=== PATIENT | female | born 1945 | race Asian ===

== ENCOUNTER 2017-03-31 15:39 | Inpatient (IN) | payer MEDICARE, OTHER ==
[~2017-03-31] VITALS: Ht 160 cm; Wt 68.0 kg
[~2017-03-31 15:39] MED LIST: ASPI81TA3 PO; LOSARTAN PO; LOVAZA PO; METF500T4 PO; METO-53; OYSTER SHELL CAL PO; SIMV40TA2
[2017-03-31] MEDS ORDERED: NITROGLYCERIN 2% 1 GM OINT PKT TD STA (15:54)
[2017-03-31] MEDS ORDERED: FUROSEMIDE 40 MG INJ IV STA (15:54)
[2017-03-31] MEDS ORDERED: ASPIRIN 81 MG TAB PO STA (15:54)
[2017-03-31] MEDS ORDERED: NITROGLYCERIN (SL) 0.4 MG TAB SL PRN ×2 (16:00→18:30)
--- NOTE | 2017-03-31 16:09 | RADRPT ---
PROCEDURE: XR Chest. CLINICAL INDICATION: Chest pain TECHNIQUE: Single portable view of the chest was obtained COMPARISON: None FINDINGS: There is mild cardiomegaly. There is mild pulmonary vascular congestion. There are bilateral perihilar and lower lobe infiltrat es. The thoracic aorta is calcified.. There is no pneumothorax. The bones and soft tissues are unremarkable. RPTAT: AA IMPRESSION: Mild cardiomegaly with pulmonary vascular congestion. .Benton Carrillo MD, MD Date Time Electronically viewed and signed by .Benton Carrillo MD, MD on 03/31/2017 16:09 .S/
[2017-03-31 16:56] LABS: ADD SCAN DIFF NO
[2017-03-31 16:58] LABS: BASOPHIL # 0.1 10^3/ul (0.0-0.1); BASOPHILS % 0.5 % (0.0-2.0); EOSINOPHILS # 0.2 10^3/ul (0.0-0.5); EOSINOPHILS % 1.9 % (0.0-7.0); HEMATOCRIT 41.8 % (37.0-47.0); HEMOGLOBIN 13.3 g/dl (12.0-16.0); LYMPHOCYTES # 3.8 10^3/ul (0.8-2.9); LYMPHOCYTES % 37.4 % (15.0-51.0); MEAN CORPUSCULAR HEMOGLOBIN 28.5 pg (29.0-33.0); MEAN CORPUSCULAR HGB CONC 31.8 g/dl (32.0-37.0); MEAN CORPUSCULAR VOLUME 89.5 fl (82.0-101.0); MEAN PLATELET VOLUME 10.7 fl (7.4-10.4); MONOCYTE # 0.8 10^3/ul (0.3-0.9); MONOCYTES % 7.7 % (0.0-11.0); NEUTROPHIL # 5.3 10^3/ul (1.6-7.5); NEUTROPHILS % 52.3 % (39.0-77.0); PLATELET COUNT 225 10^3/UL (140-415); RED BLOOD COUNT 4.67 10^6/ul (4.20-5.40); RED CELL DISTRIBUTION WIDTH 13.2 % (11.5-14.5); WHITE BLOOD COUNT 10.1 10^3/ul (4.8-10.8)
[2017-03-31] MEDS ORDERED: COLC0.6T6 PO (16:58)
[2017-03-31] MEDS ORDERED: CALC-277 PO (16:58)
[2017-03-31] MEDS ORDERED: MECL-77 PO (16:58)
[2017-03-31] MEDS ORDERED: OMEG1CAP2 PO (16:59)
[2017-03-31] MEDS ORDERED: CYCL1DRO BOTH EYES (16:59)
[2017-03-31] MEDS ORDERED: METO-429 PO (17:01)
[2017-03-31] MEDS ORDERED: ASPI-664 PO (17:01)
[2017-03-31] MEDS ORDERED: SITA100T8 PO (17:02)
[2017-03-31] MEDS ORDERED: CRES10 PO (17:02)
[2017-03-31] MEDS ORDERED: LEVO25TA50 PO (17:03)
[2017-03-31] MEDS ORDERED: LOSA100T7 PO (17:03)
[2017-03-31] MEDS ORDERED: GABA100C14 PO (17:04)
[2017-03-31] MEDS ORDERED: METF850T PO (17:05)
[2017-03-31] MEDS ORDERED: FLUT16SP17 NASAL (17:06)
[2017-03-31] MEDS ORDERED: AMLO5TAB4 PO (17:06)
[2017-03-31] MEDS ORDERED: ACET-141 PO (17:07)
[2017-03-31 17:15] LABS: INR 0.91; PROTIME 12.3 Sec (12.2-14.2)
[2017-03-31 17:16] LABS: PARTIAL THROMBOPLASTIN TIME 31.4 Sec (25.0-35.0)
[2017-03-31 17:18] LABS: AADO2 Arterial 311.3 mmHg (7.0-24.0); Allen Test ACCEPTAB; Arterial Base Excess -2.7 mmol/L (-3.0-3); Arterial COHb 0.3 % (0.0-3.0); Arterial HCO3 21.2 mmol/L (22.0-26.0); Arterial MetHb 0.2 % (0.0-1.5); Blood Gas IEPAP 15/5; Blood Gas PS 10; MODE MASK - BIPAP
[2017-03-31 17:20] LABS: CALCIUM 9.3 mg/dl (8.4-10.2); CREATININE 0.85 mg/dl (0.44-1.00); POTASSIUM 3.9 mmol/L (3.5-5.1)
[2017-03-31] MEDS ORDERED: ONDANSETRON 4 MG INJ IV PRN ×2 (17:30→18:30)
[2017-03-31] MEDS ORDERED: ACETAMINOPHEN 325 MG TAB PO PRN ×2 (17:30→18:30)
[2017-03-31 17:34] LABS: TROPONIN-I 0.209 ng/ml (0.00-0.12)
--- NOTE | 2017-03-31 18:04 | ERA ---
ER Documentation Chief Complaint Date/Time DATE: 03/31/17 TIME: 18:00 Chief Complaint Shortness of breath HPI Patient is a 71-year-old female with hypertension and diabetes who presents saying "I cannot breathe". She said this started 1 hour ago and was acute in onset. She denies pain. She said that she has no chest pain. This shortness of breath has been constant. She denies recent bleeding. She has had a mild cough. She has had no fevers. Upon review of old medical records this is the patient's third visit to the ER since 2009. ROS All systems reviewed and are negative except as per history of present illness. Medications Home Meds Reported Medications Acetaminophen* (Acetaminophen*) 500 MG Extra Strength Tablet, 1000 MG PO Q6H Y for PAIN AND OR ELEVATED TEMP, TAB 03/31/17 Fluticasone Propionate* (Fluticasone Propionate* Nasal) 50 Mcg/Hannibal - 16 Gm Hannibal.susp, 1 SPRAY NASAL DAILY, #1 BOTTLE TO EACH NOSTRIL 03/31/17 Amlodipine Besylate* (Norvasc*) 5 Mg Tablet, 5 MG PO DAILY, TAB 03/31/17 Metformin Hcl* (Metformin Hcl*) 850 Mg Tablet, 850 MG PO WITH BREAKFAST DINNE, # 30 TAB 03/31/17 Gabapentin* (Gabapentin*) 100 Mg Capsule, 100 MG PO BID, #90 CAP 03/31/17 Losartan Potassium* (Losartan Potassium*) 100 Mg Tablet, 100 MG PO DAILY, TAB 03/31/17 Levothyroxine Sodium* (Levoxyl*) 25 Mcg Tablet, 25 MCG PO BEFORE BREAKFAST, #30 TAB 03/31/17 Sitagliptin* (Januvia*) 100 Mg Tablet, 100 MG PO DAILY, #30 TAB 03/31/17 Rosuvastatin Calcium* (Crestor*) 10 Mg Tablet, 10 MG PO QHS, #30 TAB 03/31/17 Aspirin (Low Dose Aspirin) 81 Mg Tablet.dr, 81 MG PO DAILY, #30 TAB 03/31/17 Metoprolol Tartrate* (Lopressor*) 50 Mg Tab, 50 MG PO DAILY, #60 TAB 03/31/17 [place]-3 Acid Ethyl Esters (Lovaza) 1 Gm Capsule, 2 GM PO BID, CAP 03/31/17 Cyclosporine (RESTASIS) 1 Each Droperette, 1 DROP BOTH EYES Q12, #1 BOX 6/11/17 Meclizine Hcl* (Meclizine Hcl*) 25 Mg Tablet, 25 MG PO Q8H Y for DIZZINESS, TAB 03/31/17 Colchicine* (Colcrys*) 0.6 Mg Tablet, 0.6 MG PO DAILY, TAB 03/31/17 Calcium Carbonate/Vitamin D3 (OYSTER SHELL 500 MG + VIT D TB) 1 Each Tablet, 1 EACH PO BID, TAB 03/31/17 Discontinued Reported Medications [Lovaza] No Conflict Check, PO BID 09/12/13 [Oyster Shell Keenan] No Conflict Check, 500 MG PO BID 09/12/13 Metformin Hcl* (Metformin Hcl*) 500 Mg Tablet, 500 MG PO BID 09/12/13 [Losartan] No Conflict Check, 100 MG PO DAILY 09/12/13 Aspirin (Aspirin) 81 Mg Chew, 81 MG PO DAILY 09/12/13 Metoprolol (Lopressor) 50 Mg Tablet 06/16/10 Simvastatin* (Zocor*) 40 Mg Tablet 06/16/10 Allergies Allergies: Coded Allergies: codeine (Verified Allergy, Mild, 03/31/17) guaifenesin (Verified Allergy, Mild, 03/31/17) PMhx/Soc History of Surgery: No Anesthesia Reaction: No Hx Neurological Disorder: No Hx Respiratory Disorders: No Hx Cardiac Disorders: Yes (HTN, HIGH CHOLESTEROL) Hx Psychiatric Problems: No Hx Miscellaneous Medical Probl: Yes (DM) Hx Alcohol Use: No Hx Substance Use: No Hx Tobacco Use: No FmHx Family History: No coronary disease Physical Exam Vitals Vital Signs Date Time Temp Pulse Resp B/P Pulse Ox O2 Delivery O2 Flow Rate FiO2 03/31/17 17:21 84 24 173/95 100 BIPAP 03/31/17 16:09 84 100 100 03/31/17 15:54 Nasal Cannula 2 03/31/17 15:54 Nasal Cannula 2.0 03/31/17 15:54 97.7 98 34 208/110 100 03/31/17 15:54 98 34 208/110 100 Nasal Cannula 2.0 Physical Exam Const: Severe distress secondary to shortness of breath Head: Atraumatic Eyes: Normal Conjunctiva ENT: Normal External Ears, Nose and Mouth. Neck: Full range of motion..~ No meningismus. Resp: Decreased breath sounds bilaterally, tachypnea and accessory muscle use Cardio: Regular rate and rhythm, no murmurs Abd: Soft, non tender, non distended. Normal bowel sounds Skin: Pale skin Back: No midline or flank tenderness Ext: No cyanosis, or edema Neur: Awake and alert Psych: Normal Mood and Affect Result Diagram: 03/31/17 1615 03/31/17 1615 Results 24 hrs Laboratory Tests Test 03/31/17 15:59 03/31/17 16:15 Blood Gas Specimen Source Blood arterial Arterial Blood Date Drawn 03/31/2017 5:09:45 PM Arterial Blood pH (Temp corrected) 7.407 Arterial Blood pCO2 (Temp correct) 34.5mmhg Arterial Blood pO2 (Temp corrected) 367.2mmHG Arterial Blood HCO3 21.2mmol/L Arterial Blood Base Excess -2.7mmol/L Arterial Blood Oxygen Saturation 99.5mmHG Parmjit Test ACCEPTAB Arterial Blood Gas Puncture Site Right Radial Arterial Blood Carboxyhemoglobin 0.3% Arterial Blood Methemoglobin 0.2% Blood Gas A-a O2 Differential 311.3mmHg Oxyhemoglobin Percent 99.0% Total Hemoglobin 14.0g/dl Blood Gas Temperature 37.0C Blood Gas Modality MASK - BIPAP FiO2 100.0% Blood Gas Pressure Support 10 Blood Gas IPAP/EPAP Ratio 15/5 Blood Gas Notified Whom ab Blood Gas Notified Time 03/31/2017 5:17:53 PM White Blood Count 10.110^3/ul Red Blood Count 4.6710^6/ul Hemoglobin 13.3g/dl Hematocrit 41.8% Mean Corpuscular Volume 89.5fl Mean Corpuscular Hemoglobin 28.5pg Mean Corpuscular Hemoglobin Concent 31.8g/dl Red Cell Distribution Width 13.2% Platelet Count 22116^3/UL Mean Platelet Volume 10.7fl Neutrophils % 52.3% Lymphocytes % 37.4% Monocytes % 7.7% Eosinophils % 1.9% Basophils % 0.5% Nucleated Red Blood Cells % 0.0/100WBC Neutrophils # 5.310^3/ul Lymphocytes # 3.810^3/ul Monocytes # 0.810^3/ul Eosinophils # 0.210^3/ul Basophils # 0.110^3/ul Nucleated Red Blood Cells # 0.010^3/ul Prothrombin Time 12.3Sec Prothrombin Time Ratio 1.0 INR International Normalized Ratio 0.91 Activated Partial Thromboplast Time 31.4Sec Sodium Level 144mmol/L Potassium Level 3.9mmol/L Chloride Level 104mmol/L Carbon Dioxide Level 27mmol/L Anion Gap 17 Blood Urea Nitrogen 13mg/dl Creatinine 0.85mg/dl Glucose Level 210mg/dl Calcium Level 9.3mg/dl Troponin I 0.209ng/ml Current Medications Medications (Trade) Dose Ordered Sig/Padma Route PRN Reason Start Time Stop Time Status Last Admin Dose Admin Aspirin (Aspirin) 162 mg ONCE STAT PO 03/31/17 15:54 03/31/17 15:55 DC 03/31/17 16:08 Nitroglycerin (Nitroglycerin 2% Oint) 1 inch ONCE STAT TD 03/31/17 15:54 03/31/17 15:55 DC 03/31/17 16:08 Nitroglycerin (Nitroglycerin (Sl Tab) 0.4 Mg) 1 tab Q5M UP TO 3 DOSES PRN SL CHEST PAIN 03/31/17 16:00 03/31/17 16:07 Furosemide (Lasix) 40 mg ONCE STAT IV 03/31/17 15:54 03/31/17 15:55 DC 03/31/17 16:08 Ondansetron HCl (Zofran Inj) 4 mg ER BRIDGE PRN IV NAUSEA AND/OR VOMITING 03/31/17 17:30 04/01/17 17:29 Acetaminophen (Tylenol Tab) 650 mg ER BRIDGE PRN PO MILD PAIN/FEVER 03/31/17 17:30 04/01/17 17:29 Procedures/MDM EKG #1 read by me: Rate/Rhythm: Left bundle branch block a rate of 94 Intervals: Left bundle branch block with widened QRS Impression: Left bundle branch block with negative Sgarbossa criteria EKG #2 read by me: Rate/Rhythm: Left bundle branch block a rate of 76 Intervals: Widened QRS Impression: Left bundle branch block with negative Sgarbossa criteria Chest X-ray 1V Interpreted by me: Soft Tissue: No acute abnormalities Bones: No acute abnormalities Mediastinum/Cardiac Silhouette/Lungs: Pulmonary edema Patient is a 71-year-old female with hypertension and diabetes who presents with what appears to be acute pulmonary edema. Her troponin is positive and I believe she likely has an NSTEMI. The patient was given aspirin, nitroglycerin , and Lasix. BiPAP therapy was required as well. Her EKG showed left bundle branch block with negative Sgarbossa criteria and I doubt STEMI at this time. The patient will be admitted to the care of Dr. Mays from the panel team to a telemetry bed. She is much improved with Lasix and nitro and BiPAP therapy. Critical Care: Time: 35 minutes excluding all billable procedures. Treatments/Evaluations: Close monitoring and treatment of unstable vital signs, cardiorespiratory, and neurologic status, while maintaining tight balance of fluid, respiratory, and cardiac interventions. Departure Diagnosis: Primary Impression: NSTEMI (non-ST elevated myocardial infarction) Additional Impressions: Shortness of breath Pulmonary edema Qualified Code: J81.0 - Acute pulmonary edema Respiratory failure Qualified Code: J96.00 - Acute respiratory failure, unspecified whether with hypoxia or hypercapnia Condition: ESTELLE Reyna MD Mar 31, 2017 18:04
[2017-03-31] MEDS ORDERED: ENOXAPARIN 80 MG/0.8 ML SYG SC SCH (18:30)
[2017-03-31] MEDS ORDERED: hydrALAzine 20 MG INJ IV PRN (18:30)
[2017-03-31] MEDS ORDERED: NA PHOSPHATE/BIPHOS 133 ML ENEMA PR PRN (18:30)
[2017-03-31] MEDS ORDERED: morphine 2 MG INJ IV PRN (18:30)
[2017-03-31] MEDS ORDERED: DOCUSATE SODIUM 100 MG CAP PO PRN (18:30)
[2017-03-31] MEDS ORDERED: LORAZEPAM 2 MG INJ IV PRN (18:30)
[2017-03-31] MEDS ORDERED: MAGNESIUM HYDROXIDE 30ML CUP PO PRN (18:30)
[2017-03-31] MEDS ORDERED: ALBUTEROL/IPRATROPIUM (NEB) 3 ML AMP HHN PRN (18:30)
[2017-03-31] MEDS ORDERED: MECLIZINE 25 MG TAB PO PRN (18:30)
[2017-03-31] MEDS ORDERED: NACL 0.9% 3 ML SYG IV SCH (18:30)
[2017-03-31] MEDS ORDERED: GLUCOSE GEL 15 GRAM TUBE PO PRN ×2 (19:00)
[2017-03-31] MEDS ORDERED: DEXTROSE 50% 50 ML SYRINGE IV PRN ×2 (19:00)
[2017-03-31] MEDS ORDERED: GLUCOSE GEL 15 GRAM TUBE BUCCAL PRN (19:00)
[2017-03-31] MEDS ORDERED: GLUCAGON 1 MG INJ IM PRN (19:00)
--- NOTE | 2017-03-31 19:43 | HP ---
DATE OF ADMISSION: 03/31/2017 CHIEF COMPLAINT: Shortness of breath. HISTORY OF PRESENT ILLNESS: A 71-year-old female with past medical history of type 2 diabetes, high cholesterol, hypertension, who has been having shortness of breath. The symptoms occurred rather s uddenly earlier today. She said she went to [facility] earlier this morning around 8. Around 9:0 0 a.m., she went to grocery store and went home and around 1 p.m. in the afternoon, she sudden shortness of breath. Denied any chest pain. No upper or lower GI bleeding. She has had some loos e stools for the last few days, but no upper or lower GI bleeding. No nausea, vomiting, no fevers o r chills, no headaches or dizziness or loss of consciousness. When she came into the ER today, she was found with worsening shortness of breath and required BiPAP, which helped relieve her symptoms a s well, and she also got a dose of Lasix and she started having less shortness of breath symptoms as well after that. Her troponin was also elevated at 0.029 and there were findings of LBBB on the EK G as well. But again, she denied chest pain. Her primary care doctor is Dr. Tran in [place]. She says she sees a Dr. Garcia, filter helper, in the [place] area. She said she had an echocardiogra m and "full workup" last month, she believes the results were negative at that time. She has never had any stroke or heart attack. No known history of any CHF. PAST MEDICAL HISTORY: As stated above. ALLERGIES: CODEINE AND GUAIFENESIN. PAST SURGICAL HISTORY: Eye retina surgery last year. FAMILY HISTORY: None. SOCIAL HISTORY: Negative for smoking, drinking or IV drug abuse . PHYSICAL EXAMINATION: VITAL SIGNS: T-max 97.7, pulse 84 to 98, respirations 24 to 34, blood pressure is 208 to 173 systol ic over 110 to 95 diastolic, satting at 100%, presently on 2 liters nasal cannula. GENERAL: The patient is sitting up in bed, answering questions appropriately. Family members at th e bedside. No acute distress. HEENT: Pupils equal, round, react to light. Extraocular muscles intact. NECK: Supple, no thyromegaly. LUNGS: There are some crackles heard at the bilateral bases. No wheezes. CARDIOVASCULAR: S1, S2 heard. No rubs or gallops. ABDOMEN: Soft, nontender, nondistended. Normal bowel sounds. No rebound or guarding. MUSCULOSKELETAL: No lower extremity edema bilaterally. NEUROLOGIC: No focal deficits. LABORATORY DATA: Again, the CBC is normal. The basic metabolic panel is normal. Troponin is eleva evelyn at 0.209. The ABG showed a pH of 7.40, pCO2 of 34, PaO2 of 367, bicarbonate 21. Chest x-ray sh owed mild cardiomegaly with pulmonary vascular congestion. ASSESSMENT AND PLAN: A 71-year-old female coming in with shortness of breath symptoms and signs of elevated troponin. Differential diagnosis includes possible congestive heart failure exacerbation a nd possible non-ST elevation myocardial infarction. 1. Shortness of breath. Again, we will admit the patient to telemetry floor, we will put her on IV Lasix, keep the head of the bed at greater than 30 degrees. We will rule out for acute coronary sy ndrome as well, given her elevated troponin. Put her on aspirin, morphine, oxygen, and nitrates as well. Get a 2D echocardiogram as well. Check a lipid panel, TSH and A1c. Get a cardiology consult as well. Try to get the records from Dr. Garcia's office as well, if possible. We will give her on e dose of Lovenox 1 mg/kg. 2. Hypertension. Again, see #1. Continue current cardiac medications, including Losartan, metopro lol, high-dose aspirin, hydralazine IV p.r.n. 3. Type 2 diabetes. Check A1c. Put her on sliding scale insulin. 4. High cholesterol, put her on Lipitor and check lipid panel. 5. Questionable history of hypothyroidism. Continue Synthroid. Check thyroid panel. 6. Gastrointestinal prophylaxis. H2 delia. 7. DVT prophylaxis. She did get a dose of Lovenox and we will put her on heparin starting tomorrow , unless there are any changes by cardiology recommendations. Consider PT consult as well. Dictated By: CHUCHO CHAMORRO/[place] Conf#: [id number] DID#: [id number]
[2017-03-31] MEDS: SOD CHLORIDE 0.45% 1,000 ML IV SCH (19:53)
[2017-03-31 20:00] VITALS: Ht 160 cm; Wt 68.0 kg
[2017-03-31 20:10] VITALS: PULSE 85
[2017-03-31 20:26] VITALS: BP 154/74; RESP 20
[2017-03-31 20:43] LABS: AADO2 Arterial 102.4 mmHg (7.0-24.0); Allen Test ACCEPTAB; Arterial COHb 0.2 % (0.0-3.0); Arterial HCO3 23.1 mmol/L (22.0-26.0); Arterial MetHb 0.3 % (0.0-1.5); Arterial Total Hemglobin 13.5 g/dl (12.0-18.0); MODE NASAL CANNULA
[2017-03-31] MEDS ORDERED: HEPARIN 5,000 UNIT/0.5 ML VIAL SC SCH (21:00)
[2017-03-31] MEDS: ATORVASTATIN 40 MG TAB PO SCH (21:25)
[2017-03-31] MEDS: FISH OIL 1,000 MG CAP PO SCH (21:25)
[2017-03-31] MEDS: GABAPENTIN 100 MG CAP PO SCH (21:26)
[2017-03-31] MEDS: INSULIN ASPART [NOVOLOG] 3 ML PEN SC SCH (21:31)
[2017-03-31] MEDS: CYCLOSPORINE 0.05% OPH DROPERETTE BOTH EYES SCH (22:31)
[2017-03-31] MEDS: FAMOTIDINE 20 MG TAB PO SCH (22:31)
[2017-03-31 22:49] LABS: TROPONIN-I 14.2 ng/ml (0.00-0.12)
[2017-04-01] VITALS (13 sets, daily range): BP systolic 127–160; BP diastolic 66–82; PULSE 70–81; RESP 18–20
[2017-04-01] MEDS: INSULIN ASPART [NOVOLOG] 3 ML PEN SC SCH ×6 (00:59→20:18)
[2017-04-01 03:54] LABS: CK-MB 19.4 ng/ml (0.0-2.4)
[2017-04-01 04:20] LABS: TROPONIN-I 14.4 ng/ml (0.00-0.12)
[2017-04-01] MEDS: LEVOTHYROXINE 25 MCG TAB PO SCH (06:17)
[2017-04-01 08:09] LABS: ADD SCAN DIFF NO
[2017-04-01 08:14] LABS: BASOPHILS % 0.3 % (0.0-2.0); EOSINOPHILS # 0.1 10^3/ul (0.0-0.5); EOSINOPHILS % 1.1 % (0.0-7.0); HEMATOCRIT 33.9 % (37.0-47.0); LYMPHOCYTES # 1.9 10^3/ul (0.8-2.9); LYMPHOCYTES % 20.4 % (15.0-51.0); MEAN CORPUSCULAR HEMOGLOBIN 28.6 pg (29.0-33.0); MEAN CORPUSCULAR HGB CONC 32.4 g/dl (32.0-37.0); MEAN CORPUSCULAR VOLUME 88.1 fl (82.0-101.0); MEAN PLATELET VOLUME 10.3 fl (7.4-10.4); MONOCYTE # 0.8 10^3/ul (0.3-0.9); MONOCYTES % 8.7 % (0.0-11.0); NEUTROPHIL # 6.3 10^3/ul (1.6-7.5); NEUTROPHILS % 69.2 % (39.0-77.0); PLATELET COUNT 179 10^3/UL (140-415); RED BLOOD COUNT 3.85 10^6/ul (4.20-5.40); RED CELL DISTRIBUTION WIDTH 13.2 % (11.5-14.5); WHITE BLOOD COUNT 9.1 10^3/ul (4.8-10.8)
[2017-04-01] MEDS ORDERED: METOPROLOL 50 MG TAB PO SCH (09:00)
[2017-04-01] MEDS: FLUTICASONE 0.05% 16 GM NAS SPRAY NASAL SCH (09:00)
[2017-04-01] MEDS: LOSARTAN 50 MG TAB PO SCH (09:13)
[2017-04-01] MEDS: FISH OIL 1,000 MG CAP PO SCH ×2 (09:13→20:22)
[2017-04-01] MEDS: FUROSEMIDE 20 MG INJ IV SCH (09:13)
[2017-04-01] MEDS: ASPIRIN (EC) 325 MG TAB PO SCH (09:14)
[2017-04-01] MEDS: FAMOTIDINE 20 MG TAB PO SCH (09:14)
[2017-04-01] MEDS: GABAPENTIN 100 MG CAP PO SCH ×2 (09:14→20:22)
[2017-04-01] MEDS: COLCHICINE 0.6 MG TAB PO SCH (09:14)
[2017-04-01] MEDS: CYCLOSPORINE 0.05% OPH DROPERETTE BOTH EYES SCH ×2 (09:15→20:22)
[2017-04-01] MEDS: SOD CHLORIDE 0.45% 1,000 ML IV SCH (09:17)
[2017-04-01 09:18] LABS: CALCIUM 8.6 mg/dl (8.4-10.2); CREATININE 0.66 mg/dl (0.44-1.00); POTASSIUM 3.3 mmol/L (3.5-5.1)
[2017-04-01 09:35] LABS: CHOL/HDL RATIO 3.2 RATIO
[2017-04-01] MEDS ORDERED: POTASSIUM CHLORIDE (SR) 20 MEQ TAB PO STA (11:17)
[2017-04-01] MEDS ORDERED: MAGNESIUM SULFATE 2 GM/50 ML 50 ML IVPB ONE (12:00)
--- NOTE | 2017-04-01 12:24 | PN ---
DATE: 04/01/2017 TIME OF EVALUATION: 11:30 a.m. SUBJECTIVE DATA: Denies any chest pain. No dyspnea improved. OBJECTIVE DATA: VITAL SIGNS: Temperature 98.2, pulse rate 79, respiratory rate 18, blood pressure 160/74, oxygen saturation 97% on low flow O2. GENERAL: This is a 71-year-old female patient lying in bed, no apparent distress. HEENT: Head normocephalic and atraumatic. Eyes: Anicteric sclerae. Conjunctivae clear. ENT: Nasal septum is midline. Oral mucosa is dry. NECK: Supple. No JVD noticed. RESPIRATORY: Bilaterally diminished breath sounds. Bilateral rales heard. No use of accessory muscles of respiration. CARDIAC: Regular rate and rhythm. S1 and S2 heard. ABDOMEN: Soft, nontender and nondistended. Bowel sounds positive in all 4 quadrants. GENITOURINARY: Deferred. EXTREMITIES: No cyanosis, no clubbing, no edema. Peripheral pulses palpable. NEUROLOGIC: The patient is awake, alert and oriented. Cranial nerves are grossly intact. LABORATORY AND DIAGNOSTIC DATA: WBC 9.1, hemoglobin 11.0, hematocrit 33.9, platelet count 179. Sodium 141, potassium 3.3, chloride 107, carbon dioxide 24 , anion gap 13, BUN 13, creatinine 0.66, glucose 127, calcium 8.6, magnesium 1.7. Hemoglobin A1c 7.7. ASSESSMENT: 1. Non-ST elevation myocardial infarction. The patient will be continued on aspirin. The patient also be continued on therapeutic Lovenox. 2. Acute hypoxic respiratory failure, most probably secondary to congestive heart failure exacerbation. Systolic versus diastolic dysfunction. Improved with diuretic therapy. 3. Dyslipidemia. The patient will be continued on statins. 4. Type 2 diabetes mellitus. Hemoglobin A1c 7.7. The patient will be started on premeal insulin and Lantus insulin along with sliding scale insulin. 5. Hypothyroidism. Continue Synthroid. 6. Essential hypertension. Continue antihypertensives. 7. Fluid, electrolytes and nutrition. The patient will be continued on a carbohydrate controlled, low cholesterol diet. 8. Deep venous thrombosis prophylaxis, Lovenox. 9. Gastrointestinal prophylaxis. Histamine 2 receptor blockers. PLAN: 1. Continue inpatient monitoring. 2. Await medication administration professional's recommendations. The case was discussed with Dr. Santana. SYLVAIN SANTANA MD, AM/[place] Conf#: [id number] [facility]#: [id number] MTDD
--- NOTE | 2017-04-01 12:48 | CONS ---
DATE OF ADMISSION: 03/31/2017 DATE OF CONSULTATION: 04/01/2017 REASON FOR CONSULTATION: Non-ST elevation myocardial infarction. REQUESTING PHYSICIAN: Dr. Fountain from the hospitalist service. HISTORY OF PRESENT ILLNESS: Ms. Carreon is a 71-year-old female with a history of diabetes mellit us, hypertension, dyslipidemia who initially presented with complaints of shortness of breath, chest pain radiating to her throat. Upon arrival in the emergency department, temperature 97.7, blood pr essure markedly elevated 208/110, pulse 98, respiratory rate 34, saturating 100% on 2 liters. The patient's labs revealed a sodium 144, potassium 3.9, creatinine 0.85, BUN 13. Troponin positive 0.209. INR 0.91. The patient underwent a chest x-ray revealing mild cardiomegaly and pulmonary va scular congestion. The patient subsequently had an electrocardiogram that revealed a left bundle br anch block pattern secondary to repolarization abnormalities, sinus rhythm, rate of 76. The patient in the emergency department was treated with Lovenox, aspirin and admitted to the floor. The patie nt overnight had troponins going from 0.209 to a followup one was then 14.2 with CK-MB of 24, CK tot al of 590 for a fraction of 4.1. Troponins thereafter continued to increase to 17.2 and thereafter trending down trended, now down to 10.1 with decrease in CK-MB. The patient at this time denies jean carlos oing chest pain, shortness breath. PAST MEDICAL HISTORY: As above in HPI. MEDICATIONS CURRENTLY IN HOSPITAL: 1. Heparin 5000 subq q.12h. 2. Colchicine 0.6 mg daily. 3. Cozaar 100 mg daily. 4. Lopressor 50 mg daily. 5. Aspirin 325 mg daily. 6. Lasix 20 mg IV daily. 7. Synthroid. 8. Insulin sliding scale. 9. Cyclosporine eyedrops. 10. Gabapentin. 11. Fish oil 2 grams b.i.d. 12. Lipitor 40 mg at bedtime. 13. Zofran p.r.n. 14. Tylenol p.r.n. 15. Morphine p.r.n. 15. 16. Nitroglycerin p.r.n. 17. IV fluid hydration 75 mL an hour. ALLERGIES: CODEINE AND ROBITUSSIN. SOCIAL HISTORY: No tobacco, ETOH or illicit drug use. FAMILY HISTORY: No history of sudden cardiac or early CAD. REVIEW OF SYSTEMS: As above in HPI. CONSTITUTIONAL: No fevers, chills. PULMONARY: No current shortness of breath. CARDIOVASCULAR: Chest pain, non-ST elevation myocardial infarction. GASTROINTESTINAL: No vomiting. GENITOURINARY: No hematuria. MUSCULOSKELETAL: Degenerative joint disease. PSYCHIATRIC: The patient denies depression. NEUROLOGIC: No documented history of CVA. PHYSICAL EXAMINATION VITAL SIGNS: Temperature of 98.2, blood pressure elevated at 160/75, pulse 79, respiratory 18, satu rating 97%. GENERAL: The patient is alert, awake, no acute distress. NECK: JVP approximately 9 to 10 cm water. CHEST: Bibasilar crackles. HEART: Regular rate and rhythm. Normal S1, S2, I/ systolic murmur, nondisplaced PMI. ABDOMEN: Positive bowel sounds, soft. EXTREMITIES: No edema, 1+ pulses bilaterally, posterior tibial. LABORATORIES: Most recently from today, troponin peaked at 17.2 down to 10.1. Sodium 141, potassiu m 2.3, creatinine 0.6, BUN 13, magnesium 1.7. White count 9.1, hemoglobin 11.0, platelet count 179. IMAGING STUDIES: As above in HPI. No further imaging studies for my review at this time. ELECTROCARDIOGRAM: As above in HPI. No further electrocardiograms for my review at this time. IMPRESSION: 1. Acute myocardial infarction, non-ST elevation myocardial infarction downtrending cardiac enzymes currently. 2. Abnormal electrocardiogram with left bundle branch block pattern in the setting of acute myocard ial infarction. 3. Chest pain secondary to #1. 4. Hypertension, currently uncontrolled. 5. Dyslipidemia. 6. Hypothyroidism. 7. Diabetes mellitus. RECOMMENDATIONS: 1. At this time, would maintain patient on telemetry monitoring to follow rhythm and rate control c losely. 2. Continue to trend the patient's cardiac enzymes to assess for any significant ongoing cardiac da mage. 3. Continue the patient's current aspirin at this time and will discontinue the patient's heparin s ubq and continue the patient on Lovenox 1mg/kg subcutaneous b.i.d. 4. Continue the patient's current beta delia but change to b.i.d. dose and give him a half-life m edication to improve efficacy and continue the patient's current Losartan and will additionally init iate the patient on oral nitrates at this time. 5. The patient is scheduled to undergo left heart catheterization, as scheduling permits with proba ble need for PTCA and stent placement for treatment of acute myocardial infarction. Thank you for allowing me to take part in the care of this patient. I will continue to follow along very closely with you with further recommendations to be made as [facility] Dictated By: KIRSTIN VO/[place] Conf#: [id number] DID#: [id number] CC: ERICA TAVAREZ MD; SYLVAIN AGUILAR BRAILLE TRANSCRIBER;*[facility]*
[2017-04-01] MEDS: ISOSORBIDE DINITRATE 10 MG TAB PO SCH ×2 (13:45→20:22)
[2017-04-01] MEDS: ENOXAPARIN 80 MG/0.8 ML SYG SC SCH ×2 (13:47→20:28)
[2017-04-01 16:22] LABS: THYROID STIMULATING HORMONE 0.588 MIU/L (0.465-4.680)
--- NOTE | 2017-04-01 16:50 | RADRPT ---
Echocardiogram Report Patient Name: ARTHUR WHITMAN Gender: Female Date: 1945 Study Date: 01-Apr-2017 [employer] Supervisor: Kayden Coombs [facility] Location: [id number] Ref. Physician: CHUCHO MOON Quality: Adequate Procedures: Transthoracic echocardiogram with complete 2D, M-Mode, and doppler examination. Indications: NSTEMI. 2D/M Mode Doppler Measurement Value Normal Ranges Measurement Value Normal Ranges LVIDd 2D 4.2 3.5 - 5.6 cm AV Peak Sony 1.2 m/sec LVIDs 2D 3.3 2.1 - 4.1 cm AV Peak PG 5.9 mmHg LVPWd 2D 1.0 0.6 - 1.1 cm AI Peak PG 50.5 mmHg IVSd 2D 1.0 0.6 - 1.1 cm AI Peak Sony 3.6 m/sec AoR Diam 2D 1.8 2.0 - 3.7 cm AI PHT 1833.8 msec EDV 2D 78.9 cm3 LVOT Peak Sony 1.0 m/sec ESV 2D 34.9 cm3 LVOT Peak PG 3.8 mmHg LA Dimen 2D 3.4 2.3 - 4.0 cm MV E Peak Sony 0.9 m/sec MV A Peak Sony 1.3 m/sec MV E/A 0.7 MV Decel Time 135 msec MV Decel [place] 7 MV E/A 0.7 Findings Left Ventricle: Lower limits of normal systolic function. Normal left ventricular cavity size. Normal left ventricular wall thickness. Ejection fraction is visually estimated at 50 %. Tissue Doppler/Mitral Doppler indices are consistent with impaired relaxation (Stage I diastolic dysfunction). These segments of the LV are hypokinetic apical septum and anteroseptum mid segment. Right Ventricle: Normal right ventricular size. Normal right ventricular systolic function. Left Atrium: The left atrium is normal in size. Right Atrium: The right atrium is normal in size. Mitral Valve: Mitral valve leaflets appear mildly thickened. Mild mitral annular calcification. Mild mitral valve regurgitation. Aortic Valve: No hemodynamically significant aortic stenosis by doppler. Aortic cusps appear mildly calcified. Mild aortic valve regurgitation. Tricuspid Valve: Normal appearance of the tricuspid valve. Unable to obtain RVSP due to minimal presence of tricuspid regurgitation. Pulmonic Valve: Normal pulmonic valve appearance. Pericardium: Normal pericardium with no significant pericardial effusion. Aorta: Normal aortic root. IVC: Normal size and normal respiratory collapse consistent with normal right atrial pressure. Conclusions 1.Lower limits of normal systolic function. Normal left ventricular cavity size. Normal left ventricular wall thickness. Ejection fraction is visually estimated at 50 %. Tissue Doppler/Mitral Doppler indices are consistent with impaired relaxation (Stage I diastolic dysfunction). These segments of the LV are hypokinetic apical septum. and anteroseptum mid segment. 2.Mitral valve leaflets appear mildly thickened. Mild mitral annular calcification. Mild mitral valve regurgitation. 3.No hemodynamically significant aortic stenosis by doppler. Aortic cusps appear mildly calcified. Mild aortic valve regurgitation. 4.Normal appearance of the tricuspid valve. Unable to obtain RVSP due to minimal presence of tricuspid regurgitation. Electronically Signed By: Brad Ledezma 01-Apr-2017 16:49:34 -0700 Patient Name: ARTHUR WHITMAN Study Date: 01-Apr-2017 [id number]
[2017-04-01] MEDS: ATORVASTATIN 40 MG TAB PO SCH (20:22)
[2017-04-01] MEDS: METOPROLOL 50 MG TAB PO SCH (20:27)
[2017-04-01] MEDS ORDERED: HEPARIN 5,000 UNIT/0.5 ML VIAL SC SCH (21:00)
[2017-04-02] VITALS (12 sets, daily range): BP systolic 127–154; BP diastolic 62–76; PULSE 74–79; RESP 18–20
[2017-04-02] MEDS: ACCU-CHEK XX SCH (02:00)
[2017-04-02] MEDS: LEVOTHYROXINE 25 MCG TAB PO SCH (06:23)
--- NOTE | 2017-04-02 07:11 | PN ---
Date/Time of Note Date/Time of Note DATE: 04/02/17 TIME: 07:11 Assessment/Plan VTE Prophylaxis VTE Prophylaxis Intervention: LMWH Lines/Catheters IV Catheter Type (from [facility]): Peripheral IV Urinary Cath still in place: No Assessment/Plan Chief Complaint/Hosp Course 1. Non-ST elevation myocardial infarction. The patient will be continued on aspirin. The patient will also be continued on therapeutic Lovenox. The patient is scheduled for a left heart catheterization. 2. Acute hypoxic respiratory failure, most probably secondary to congestive heart failure exacerbation. Diastolic dysfunction. Improved with diuretic therapy. 3. Dyslipidemia. The patient will be continued on statins. 4. Type 2 diabetes mellitus. Hemoglobin A1c 7.7. The patient will be continued on premeal insulin and Lantus insulin along with sliding scale insulin. 5. Hypothyroidism. Continue Synthroid. 6. Essential hypertension. Continue antihypertensives. 7. Fluid, electrolytes and nutrition. The patient will be continued on a carbohydrate controlled, low cholesterol diet. 8. Deep venous thrombosis prophylaxis. Lovenox. 9. Gastrointestinal prophylaxis. Histamine 2 receptor blockers. PLAN: 1. Continue inpatient monitoring. 2. Await left heart catheterization. The case was discussed with Dr. Fragoso. Problems: Subjective 24 Hr Interval Summary Free Text/Dictation Denies any chest pain. Exam/Review of Systems Vital Signs Vitals Vital Signs Date Time Temp Pulse Resp B/P Pulse Ox O2 Delivery O2 Flow Rate FiO2 04/02/17 04:06 74 04/02/17 04:00 98.4 18 154/70 98 04/02/17 02:31 4.0 04/01/17 20:20 Nasal Cannula 03/31/17 16:09 100 Intake and Output 04/01/17 04/01/17 04/02/17 15:00 23:00 07:00 Intake Total 1000 ml 750 ml Output Total 2000 ml Balance -2000 ml 1000 ml 750 ml Exam GENERAL: This is a 71-year-old female patient lying in bed, no apparent distress. HEENT: Head normocephalic and atraumatic. Eyes: Anicteric sclerae. Conjunctivae clear. ENT: Nasal septum is midline. Oral mucosa is dry. NECK: Supple. No JVD noticed. RESPIRATORY: Bilaterally diminished breath sounds. Bilateral rales heard. No use of accessory muscles of respiration. CARDIAC: Regular rate and rhythm. S1 and S2 heard. ABDOMEN: Soft, nontender and nondistended. Bowel sounds positive in all 4 quadrants. GENITOURINARY: Deferred. EXTREMITIES: No cyanosis, no clubbing, no edema. Peripheral pulses palpable. NEUROLOGIC: The patient is awake, alert and oriented. Cranial nerves are grossly intact. Results Result Diagram: 04/01/17 0635 04/01/17 0635 Results 24 hrs Laboratory Tests Test 04/01/17 07:38 04/01/17 11:42 04/01/17 17:22 04/01/17 17:50 Bedside Glucose 155 167 163 Troponin I 5.080 *H Test 04/01/17 20:17 04/02/17 00:26 Bedside Glucose 155 Troponin I 4.330 *H Medications Medications Current Medications Ondansetron HCl (Zofran Inj) 4 mg Q6H PRN IV NAUSEA AND/OR VOMITING; Start 09/06 at 18:30 Acetaminophen (Tylenol Tab) 650 mg Q6H PRN PO PAIN LEVEL 1-3 OR FEVER; Start at 18:30 Acetaminophen/ Hydrocodone Bitart ([place] (5/325)) 1 tab Q6H PRN PO MODERATE PAIN LEVEL 4-6; Start 03/31/17 at 18:30 Morphine Sulfate (morphine) 2 mg Q4H PRN IV SEVERE PAIN LEVEL 7-10; Start 03/31 at 18:30 Docusate Sodium (Colace) 100 mg Q12H PRN PO CONSTIPATION; Start 03/31/17 at 18: 30 Magnesium Hydroxide (Milk Of Mag) 30 ml DAILY PRN PO CONSTIPATION; Start at 18:30 Sodium Biphosphate/ Sodium Phosphate (Fleet Enema) 133 ml DAILY PRN [place] CONSTIPATION; Start 03/31/17 at 18:30 Lorazepam (Ativan) 0.5 mg Q6H PRN IV ANXIETY; Start 03/31/17 at 18:30 Nitroglycerin (Nitroglycerin (Sl Tab) 0.4 Mg) 1 tab Q5M PRN SL ANGINA; Start at 18:30 Colchicine (Colchicine) 0.6 mg DAILY PO Last administered on 04/01/17 09:14; Admin Dose 0.6 MG; Start 04/01/17 at 09:00 Cyclosporine (Restasis) 1 drop Q12 BOTH EYES Last administered on 04/01/17 20: 22; Admin Dose 1 DROP; Start 03/31/17 at 21:00 Fluticasone Propionate (Flonase 0.05% Nasal) 1 spray DAILY NASAL ; Start at 09:00 Gabapentin (Neurontin) 100 mg BID PO Last administered on 04/01/17 20:22; Admin Dose 100 MG; Start 03/31/17 at 21:00 Losartan Potassium (Cozaar) 100 mg DAILY PO Last administered on 04/01/17 09: 13; Admin Dose 100 MG; Start 04/01/17 at 09:00 Meclizine HCl (Antivert) 25 mg Q8H PRN PO DIZZINESS; Start 03/31/17 at 18:30 Fish Oil (Fish Oil) 2,000 mg BID PO Last administered on 04/01/17 20:22; Admin Dose 2,000 MG; Start 03/31/17 at 21:00 Aspirin (Ecotrin) 325 mg DAILY PO Last administered on 04/01/17 09:14; Admin Dose 325 MG; Start 04/01/17 at 09:00 Famotidine (Pepcid) 20 mg DAILY PO Last administered on 04/01/17 09:14; Admin Dose 20 MG; Start 03/31/17 at 18:30 Atorvastatin Calcium (Lipitor) 40 mg HS PO Last administered on 04/01/17 20:22 ; Admin Dose 40 MG; Start 03/31/17 at 21:00 Hydralazine HCl (Apresoline) 10 mg Q6H PRN IV ELEVATED BLOOD PRESSURE; Start at 18:30 Miscellaneous Information 1 ea NOTE XX ; Start 03/31/17 at 19:00 Glucose (Glutose) 15 gm Q15M PRN PO DECREASED GLUCOSE; Start 03/31/17 at 19:00 Glucose (Glutose) 22.5 gm Q15M PRN PO DECREASED GLUCOSE; Start 03/31/17 at 19: 00 Dextrose (D50w Syringe) 25 ml Q15M PRN IV DECREASED GLUCOSE; Start 03/31/17 at 19:00 Dextrose (D50w Syringe) 50 ml Q15M PRN IV DECREASED GLUCOSE; Start 03/31/17 at 19:00 Glucagon (Glucagen) 1 mg Q15M PRN IM DECREASED GLUCOSE; Start 6/11/17 at 19:00 Glucose (Glutose) 15 gm Q15M PRN BUCCAL DECREASED GLUCOSE; Start 03/31/17 at 19 :00 Furosemide (Lasix) 20 mg DAILY IV Last administered on 04/01/17 09:13; Admin Dose 20 MG; Start 04/01/17 at 09:00 Metoprolol Tartrate (Lopressor) 50 mg BID PO Last administered on 04/01/17 20: 27; Admin Dose 50 MG; Start 04/01/17 at 21:00 Enoxaparin Sodium (Lovenox) 70 mg Q12 SC Last administered on 04/01/17 20:28; Admin Dose 70 MG; Start 04/01/17 at 13:00 Isosorbide Dinitrate (Isordil) 10 mg TID PO Last administered on 04/01/17 20: 22; Admin Dose 10 MG; Start 04/01/17 at 13:00 Insulin Glargine (Lantus) 13 unit DAILY@08 SC ; Start 04/02/17 at 08:00 Diagnostic Test (Pha) (Accu-Chek) 1 ea 02 XX ; Start 04/02/17 at 02:00 SYLVAIN AGUILAR NP Apr 02, 2017 07:11
[2017-04-02 08:14] LABS: ADD SCAN DIFF NO
--- NOTE | 2017-04-02 08:18 | CONS ---
Date/Time of Note Date/Time of Note DATE: 04/02/17 TIME: 08:16 Assessment/Plan Assessment/Plan Additional Assessment/Plan 1. Acute myocardial infarction, non-ST elevation myocardial infarction downtrending cardiac enzymes currently- per DR. Ledezma: The patient is scheduled to undergo left heart catheterization, as scheduling permits with probable need for PTCA and stent placement for treatment of acute myocardial infarction. Will follow with him. 2. Abnormal electrocardiogram with left bundle branch block pattern in the setting of acute myocardial infarction. No CP now, con't med Rx. 3. Chest pain secondary to #10- now resolved. 4. Hypertension, currently better controlled. 5. Dyslipidemia. 6. Hypothyroidism. 7. Diabetes mellitus- on meds, no CP - will monitor closely. Consultation Date/Type/Reason Admit Date/Time Mar 31, 2017 at 17:02 Initial Consult Date 24 HR Interval Summary Free Text/Dictation No acute events - n CP now - plan to have LHC per DR. Ledezma. ROS: No fever, no chills, no nausea, no vomiting, no diarrhea/constipation No recent weight changes No chest pain, no PND, no orthopnea No dizziness, blurred vision No thirst, no heat or cold intolerance Exam/Review of Systems Vital Signs Vitals Vital Signs Date Time Temp Pulse Resp B/P Pulse Ox O2 Delivery O2 Flow Rate FiO2 04/02/17 08:02 98.2 78 20 137/67 98 04/02/17 02:31 4.0 04/01/17 20:20 Nasal Cannula 03/31/17 16:09 100 Intake and Output 04/01/17 04/01/17 04/02/17 15:00 23:00 07:00 Intake Total 1000 ml 750 ml Output Total 2000 ml Balance -2000 ml 1000 ml 750 ml Exam General: WN/WD/NAD, AOx 3 HEENT: Unicetric/atraumatic/EOMI (follows commands) NECK: JVD elevated, no thyromegaly Lymph: no lymphadenopathy HEART: regular with no S3, II/ systolic murmur at apex LUNGS: Coarse sounds ABD: soft, NT, ND, +BS : Intact Neuro: non focal SKIN: chronic changes EXT: trace edema Results Result Diagram: 04/01/17 0635 04/01/17 0635 Results 24 hrs Laboratory Tests Test 04/01/17 11:42 04/01/17 17:22 04/01/17 17:50 04/01/17 20:17 Bedside Glucose 167 163 155 Troponin I 5.080 *H Test 04/02/17 00:26 Troponin I 4.330 *H Medications Medications Current Medications Ondansetron HCl (Zofran Inj) 4 mg Q6H PRN IV NAUSEA AND/OR VOMITING; Start 09/06 at 18:30 Acetaminophen (Tylenol Tab) 650 mg Q6H PRN PO PAIN LEVEL 1-3 OR FEVER; Start at 18:30 Acetaminophen/ Hydrocodone Bitart ([place] (5/325)) 1 tab Q6H PRN PO MODERATE PAIN LEVEL 4-6; Start 03/31/17 at 18:30 Morphine Sulfate (morphine) 2 mg Q4H PRN IV SEVERE PAIN LEVEL 7-10; Start 03/31 at 18:30 Docusate Sodium (Colace) 100 mg Q12H PRN PO CONSTIPATION; Start 03/31/17 at 18: 30 Magnesium Hydroxide (Milk Of Mag) 30 ml DAILY PRN PO CONSTIPATION; Start at 18:30 Sodium Biphosphate/ Sodium Phosphate (Fleet Enema) 133 ml DAILY PRN [place] CONSTIPATION; Start 03/31/17 at 18:30 Lorazepam (Ativan) 0.5 mg Q6H PRN IV ANXIETY; Start 03/31/17 at 18:30 Nitroglycerin (Nitroglycerin (Sl Tab) 0.4 Mg) 1 tab Q5M PRN SL ANGINA; Start at 18:30 Colchicine (Colchicine) 0.6 mg DAILY PO Last administered on 04/01/17 09:14; Admin Dose 0.6 MG; Start 04/01/17 at 09:00 Cyclosporine (Restasis) 1 drop Q12 BOTH EYES Last administered on 04/01/17 20: 22; Admin Dose 1 DROP; Start 03/31/17 at 21:00 Fluticasone Propionate (Flonase 0.05% Nasal) 1 spray DAILY NASAL ; Start at 09:00 Gabapentin (Neurontin) 100 mg BID PO Last administered on 04/01/17 20:22; Admin Dose 100 MG; Start 03/31/17 at 21:00 Losartan Potassium (Cozaar) 100 mg DAILY PO Last administered on 04/01/17 09: 13; Admin Dose 100 MG; Start 04/01/17 at 09:00 Meclizine HCl (Antivert) 25 mg Q8H PRN PO DIZZINESS; Start 03/31/17 at 18:30 Fish Oil (Fish Oil) 2,000 mg BID PO Last administered on 04/01/17 20:22; Admin Dose 2,000 MG; Start 03/31/17 at 21:00 Aspirin (Ecotrin) 325 mg DAILY PO Last administered on 04/01/17 09:14; Admin Dose 325 MG; Start 04/01/17 at 09:00 Famotidine (Pepcid) 20 mg DAILY PO Last administered on 04/01/17 09:14; Admin Dose 20 MG; Start 03/31/17 at 18:30 Atorvastatin Calcium (Lipitor) 40 mg HS PO Last administered on 04/01/17 20:22 ; Admin Dose 40 MG; Start 03/31/17 at 21:00 Hydralazine HCl (Apresoline) 10 mg Q6H PRN IV ELEVATED BLOOD PRESSURE; Start at 18:30 Miscellaneous Information 1 ea NOTE XX ; Start 03/31/17 at 19:00 Glucose (Glutose) 15 gm Q15M PRN PO DECREASED GLUCOSE; Start 03/31/17 at 19:00 Glucose (Glutose) 22.5 gm Q15M PRN PO DECREASED GLUCOSE; Start 03/31/17 at 19: 00 Dextrose (D50w Syringe) 25 ml Q15M PRN IV DECREASED GLUCOSE; Start 03/31/17 at 19:00 Dextrose (D50w Syringe) 50 ml Q15M PRN IV DECREASED GLUCOSE; Start 03/31/17 at 19:00 Glucagon (Glucagen) 1 mg Q15M PRN IM DECREASED GLUCOSE; Start 03/31/17 at 19:00 Glucose (Glutose) 15 gm Q15M PRN BUCCAL DECREASED GLUCOSE; Start 03/31/17 at 19 :00 Furosemide (Lasix) 20 mg DAILY IV Last administered on 04/01/17 09:13; Admin Dose 20 MG; Start 04/01/17 at 09:00 Metoprolol Tartrate (Lopressor) 50 mg BID PO Last administered on 04/01/17 20: 27; Admin Dose 50 MG; Start 04/01/17 at 21:00 Enoxaparin Sodium (Lovenox) 70 mg Q12 SC Last administered on 04/01/17 20:28; Admin Dose 70 MG; Start 04/01/17 at 13:00 Isosorbide Dinitrate (Isordil) 10 mg TID PO Last administered on 04/01/17 20: 22; Admin Dose 10 MG; Start 04/01/17 at 13:00 Insulin Glargine (Lantus) 13 unit DAILY@08 SC ; Start 04/02/17 at 08:00 Diagnostic Test (Pha) (Accu-Chek) 1 02 XX ; Start 04/02/17 at 02:00 AMANDA NIETO MD Apr 02, 2017 08:18
[2017-04-02 08:30] LABS: BASOPHIL # 0.1 10^3/ul (0.0-0.1); BASOPHILS % 0.7 % (0.0-2.0); EOSINOPHILS # 0.1 10^3/ul (0.0-0.5); EOSINOPHILS % 1.3 % (0.0-7.0); HEMATOCRIT 35.9 % (37.0-47.0); HEMOGLOBIN 11.7 g/dl (12.0-16.0); LYMPHOCYTES # 2.1 10^3/ul (0.8-2.9); MEAN CORPUSCULAR HEMOGLOBIN 29.1 pg (29.0-33.0); MEAN CORPUSCULAR HGB CONC 32.6 g/dl (32.0-37.0); MEAN CORPUSCULAR VOLUME 89.3 fl (82.0-101.0); MEAN PLATELET VOLUME 10.2 fl (7.4-10.4); MONOCYTES % 11.3 % (0.0-11.0); NEUTROPHIL # 5.2 10^3/ul (1.6-7.5); NEUTROPHILS % 61.3 % (39.0-77.0); PLATELET COUNT 185 10^3/UL (140-415); RED BLOOD COUNT 4.02 10^6/ul (4.20-5.40); RED CELL DISTRIBUTION WIDTH 13.1 % (11.5-14.5); WHITE BLOOD COUNT 8.4 10^3/ul (4.8-10.8)
[2017-04-02] MEDS: GABAPENTIN 100 MG CAP PO SCH ×2 (08:49→20:21)
[2017-04-02] MEDS: LOSARTAN 50 MG TAB PO SCH (08:50)
[2017-04-02] MEDS: COLCHICINE 0.6 MG TAB PO SCH (08:50)
[2017-04-02] MEDS: ISOSORBIDE DINITRATE 10 MG TAB PO SCH ×3 (08:50→20:20)
[2017-04-02] MEDS: ASPIRIN (EC) 325 MG TAB PO SCH (08:50)
[2017-04-02] MEDS: FISH OIL 1,000 MG CAP PO SCH ×2 (08:50→20:25)
[2017-04-02] MEDS: FAMOTIDINE 20 MG TAB PO SCH (08:51)
[2017-04-02] MEDS: METOPROLOL 50 MG TAB PO SCH ×2 (08:51→20:21)
[2017-04-02] MEDS: FUROSEMIDE 20 MG INJ IV SCH (08:53)
[2017-04-02 08:55] LABS: CALCIUM 9.1 mg/dl (8.4-10.2); CREATININE 0.69 mg/dl (0.44-1.00); MAGNESIUM 2.3 mg/dl (1.7-2.5); POTASSIUM 4.8 mmol/L (3.5-5.1)
[2017-04-02] MEDS: FLUTICASONE 0.05% 16 GM NAS SPRAY NASAL SCH (08:57)
[2017-04-02] MEDS: INSULIN ASPART [NOVOLOG] 3 ML PEN SC SCH ×7 (09:00→20:25)
[2017-04-02] MEDS: ENOXAPARIN 80 MG/0.8 ML SYG SC SCH (09:00)
[2017-04-02] MEDS: INSULIN GLARGINE [LANtus] 3 ML PEN SC SCH (09:05)
[2017-04-02] MEDS: CYCLOSPORINE 0.05% OPH DROPERETTE BOTH EYES SCH ×2 (10:00→20:21)
[2017-04-02] MEDS ORDERED: LORAZEPAM 0.5 MG TAB PO PRN (17:00)
[2017-04-02] MEDS: ATORVASTATIN 40 MG TAB PO SCH (20:21)
[2017-04-03] VITALS (38 sets, daily range): BP systolic 113–173; BP diastolic 58–91; PULSE 66–90; RESP 12–40
[2017-04-03] MEDS: ACCU-CHEK XX SCH (02:00)
[2017-04-03] MEDS: LEVOTHYROXINE 25 MCG TAB PO SCH (06:20)
[2017-04-03 07:10] LABS: ADD SCAN DIFF NO
[2017-04-03 07:20] LABS: BASOPHILS % 0.4 % (0.0-2.0); EOSINOPHILS # 0.1 10^3/ul (0.0-0.5); EOSINOPHILS % 1.8 % (0.0-7.0); HEMATOCRIT 35.6 % (37.0-47.0); HEMOGLOBIN 11.8 g/dl (12.0-16.0); LYMPHOCYTES % 27.1 % (15.0-51.0); MEAN CORPUSCULAR HEMOGLOBIN 29.3 pg (29.0-33.0); MEAN CORPUSCULAR HGB CONC 33.1 g/dl (32.0-37.0); MEAN CORPUSCULAR VOLUME 88.3 fl (82.0-101.0); MONOCYTE # 0.7 10^3/ul (0.3-0.9); MONOCYTES % 9.9 % (0.0-11.0); NEUTROPHIL # 4.5 10^3/ul (1.6-7.5); NEUTROPHILS % 60.7 % (39.0-77.0); PLATELET COUNT 189 10^3/UL (140-415); RED BLOOD COUNT 4.03 10^6/ul (4.20-5.40); RED CELL DISTRIBUTION WIDTH 12.9 % (11.5-14.5); WHITE BLOOD COUNT 7.3 10^3/ul (4.8-10.8)
[2017-04-03 07:26] LABS: INR 1.01; PROTIME 13.3 Sec (12.2-14.2)
[2017-04-03 07:55] LABS: MAGNESIUM 2.2 mg/dl (1.7-2.5); PHOSPHORUS 3.9 mg/dl (2.5-4.9)
[2017-04-03] MEDS: INSULIN ASPART [NOVOLOG] 3 ML PEN SC SCH ×7 (08:00→21:00)
[2017-04-03] MEDS: INSULIN GLARGINE [LANtus] 3 ML PEN SC SCH (08:00)
[2017-04-03] MEDS ORDERED: HEPARIN 1000 UNITS/ML 10 ML INJ ONE (08:11)
[2017-04-03] MEDS ORDERED: IODIXANOL LOCM 100 ML BTL ONE (08:11)
[2017-04-03] MEDS ORDERED: LIDOCAINE 1% (MDV) 20 ML INJ ONE (08:11)
[2017-04-03] MEDS ORDERED: MIDAZOLAM 1 MG/ML 2 ML INJ ONE (08:12)
[2017-04-03] MEDS ORDERED: NITROGLYCERIN (IC) 100 MCG/ML INJ ONE (08:12)
[2017-04-03] MEDS ORDERED: VERAPAMIL 5 MG INJ ONE (08:12)
[2017-04-03] MEDS ORDERED: FENTAnyl 50 MCG/ML VIAL ONE (08:12)
[2017-04-03] MEDS ORDERED: SOD CHLORIDE 0.9% 500 ML ONE (08:12)
[2017-04-03] MEDS: METOPROLOL 50 MG TAB PO SCH ×2 (08:23→21:24)
[2017-04-03] MEDS: LOSARTAN 50 MG TAB PO SCH (08:24)
[2017-04-03] MEDS: FUROSEMIDE 20 MG INJ IV SCH (08:36)
[2017-04-03] MEDS: FISH OIL 1,000 MG CAP PO SCH ×2 (08:36→21:08)
[2017-04-03] MEDS: COLCHICINE 0.6 MG TAB PO SCH (08:36)
[2017-04-03] MEDS: ASPIRIN (EC) 325 MG TAB PO SCH (08:36)
[2017-04-03] MEDS: FLUTICASONE 0.05% 16 GM NAS SPRAY NASAL SCH (08:36)
[2017-04-03] MEDS: CYCLOSPORINE 0.05% OPH DROPERETTE BOTH EYES SCH ×2 (08:36→21:25)
[2017-04-03] MEDS: ISOSORBIDE DINITRATE 10 MG TAB PO SCH ×3 (08:37→21:07)
[2017-04-03] MEDS: GABAPENTIN 100 MG CAP PO SCH ×2 (08:37→21:07)
[2017-04-03] MEDS: FAMOTIDINE 20 MG TAB PO SCH (08:38)
[2017-04-03] MEDS ORDERED: SOD CHLORIDE 0.9% 1,000 ML IV SCH (10:01)
[2017-04-03 10:09] LABS: CALCIUM 9.1 mg/dl (8.4-10.2); CREATININE 0.7 mg/dl (0.44-1.00); POTASSIUM 4.6 mmol/L (3.5-5.1)
--- NOTE | 2017-04-03 10:29 | CONS ---
Date/Time of Note Date/Time of Note DATE: 04/03/17 TIME: 10:24 Assessment/Plan Assessment/Plan Chief Complaint/Hosp Course IMPRESSION: 1. Acute myocardial infarction, non-ST elevation myocardial infarction downtrending cardiac enzymes currently.. Now POD#0 s/p LHC revealing 100% LCX with LL collateral and high grade LAD ostial/RCA mid/PDA stenosis/LVEF 35-40/no sig 2. Abnormal electrocardiogram with left bundle branch block pattern in the setting of acute myocardial infarction. 3. Chest pain secondary to #1. 4. Hypertension, currently uncontrolled. 5. Dyslipidemia. 6. Hypothyroidism. 7. Diabetes mellitus. 8. Cardiomyopathy-decreased LVEF-mild to moderately Recc: -Tele -serial ecg's -Continue BB/losartan -Continue asa/statin -Continue oral nitrates -CT surgical eval for possible cabg Problems: Consultation Date/Type/Reason Admit Date/Time Mar 31, 2017 at 17:02 Initial Consult Date 03/31/2017 Type of Consultation: Cardiology Reason for Consultation Nstemi Referring Provider: CATHY SANTANA Exam/Review of Systems Vital Signs Vitals Vital Signs Date Time Temp Pulse Resp B/P Pulse Ox O2 Delivery O2 Flow Rate FiO2 04/03/17 08:05 78 04/03/17 07:41 98.1 18 136/78 99 04/03/17 03:30 4.0 04/02/17 20:20 Nasal Cannula 03/31/17 16:09 100 Intake and Output 04/02/17 04/02/17 04/03/17 15:00 23:00 07:00 Intake Total 1000 ml 250 ml Balance 1000 ml 250 ml Exam Review of Systems: CONSTITUTIONAL: No fevers, chills. PULMONARY: No sob CARDIOVASCULAR:intermittent chest pain GASTROINTESTINAL: No nausea/vomiting. GENITOURINARY: No hematuria/dysuria. MUSCULOSKELETAL: No myagias/arthalgias. PSYCHIATRIC: The patient denies depression. NEUROLOGIC: No weakness Constitutional: alert Psych: no complaints Head: normocephalic ENMT: mucosa pink and moist Neck: jvd (9 cm water), supple Respiratory: diminished breath sounds Cardiovascular: regular rate and rhythm Gastrointestinal: non-tender, soft Musculoskeletal: muscle tone (normal) Extremities: edema (none) Neurological: other (No focal deficits) Results Result Diagram: 04/03/17 0636 04/02/17 0630 Results 24 hrs Laboratory Tests Test 04/02/17 12:23 04/02/17 17:24 04/02/17 20:18 04/03/17 06:36 Bedside Glucose 155 182 157 White Blood Count 7.3 Red Blood Count 4.03 L Hemoglobin 11.8 L Hematocrit 35.6 L Mean Corpuscular Volume 88.3 Mean Corpuscular Hemoglobin 29.3 Mean Corpuscular Hemoglobin Concent 33.1 Red Cell Distribution Width 12.9 Platelet Count 189 Mean Platelet Volume 10.0 Neutrophils % 60.7 Lymphocytes % 27.1 Monocytes % 9.9 Eosinophils % 1.8 Basophils % 0.4 Nucleated Red Blood Cells % 0.0 Neutrophils # 4.5 Lymphocytes # 2.0 Monocytes # 0.7 Eosinophils # 0.1 Basophils # 0.0 Nucleated Red Blood Cells # 0.0 Prothrombin Time 13.3 Prothrombin Time Ratio 1.0 INR International Normalized Ratio 1.01 Sodium Level 143 Potassium Level 4.6 Chloride Level 105 Carbon Dioxide Level 26 Anion Gap 17 H Blood Urea Nitrogen 13 Creatinine 0.70 Glucose Level 160 Calcium Level 9.1 Phosphorus Level 3.9 Magnesium Level 2.2 Test 04/03/17 08:23 Bedside Glucose 154 Medications Medications Current Medications Ondansetron HCl (Zofran Inj) 4 mg Q6H PRN IV NAUSEA AND/OR VOMITING; Start 09/06 at 18:30 Acetaminophen (Tylenol Tab) 650 mg Q6H PRN PO PAIN LEVEL 1-3 OR FEVER; Start at 18:30 Acetaminophen/ Hydrocodone Bitart ([place] (5/325)) 1 tab Q6H PRN PO MODERATE PAIN LEVEL 4-6; Start 03/31/17 at 18:30 Morphine Sulfate (morphine) 2 mg Q4H PRN IV SEVERE PAIN LEVEL 7-10; Start 03/31 at 18:30 Docusate Sodium (Colace) 100 mg Q12H PRN PO CONSTIPATION; Start 03/31/17 at 18: 30 Magnesium Hydroxide (Milk Of Mag) 30 ml DAILY PRN PO CONSTIPATION; Start at 18:30 Sodium Biphosphate/ Sodium Phosphate (Fleet Enema) 133 ml DAILY PRN [place] CONSTIPATION; Start 03/31/17 at 18:30 Nitroglycerin (Nitroglycerin (Sl Tab) 0.4 Mg) 1 tab Q5M PRN SL ANGINA; Start at 18:30 Colchicine (Colchicine) 0.6 mg DAILY PO Last administered on 04/02/17 08:50; Admin Dose 0.6 MG; Start 04/01/17 at 09:00 Cyclosporine (Restasis) 1 drop Q12 BOTH EYES Last administered on 04/02/17 20: 21; Admin Dose 1 DROP; Start 03/31/17 at 21:00 Fluticasone Propionate (Flonase 0.05% Nasal) 1 spray DAILY NASAL ; Start at 09:00 Gabapentin (Neurontin) 100 mg BID PO Last administered on 04/02/17 20:21; Admin Dose 100 MG; Start 03/31/17 at 21:00 Losartan Potassium (Cozaar) 100 mg DAILY PO Last administered on 04/03/17 08: 24; Admin Dose 100 MG; Start 04/01/17 at 09:00 Meclizine HCl (Antivert) 25 mg Q8H PRN PO DIZZINESS; Start 03/31/17 at 18:30 Fish Oil (Fish Oil) 2,000 mg BID PO Last administered on 04/02/17 08:50; Admin Dose 2,000 MG; Start 03/31/17 at 21:00 Aspirin (Ecotrin) 325 mg DAILY PO Last administered on 04/02/17 08:50; Admin Dose 325 MG; Start 04/01/17 at 09:00 Famotidine (Pepcid) 20 mg DAILY PO Last administered on 04/02/17 08:51; Admin Dose 20 MG; Start 03/31/17 at 18:30 Atorvastatin Calcium (Lipitor) 40 mg HS PO Last administered on 04/02/17 20:21 ; Admin Dose 40 MG; Start 03/31/17 at 21:00 Hydralazine HCl (Apresoline) 10 mg Q6H PRN IV ELEVATED BLOOD PRESSURE; Start at 18:30 Miscellaneous Information 1 ea NOTE XX ; Start 03/31/17 at 19:00 Glucose (Glutose) 15 gm Q15M PRN PO DECREASED GLUCOSE; Start 03/31/17 at 19:00 Glucose (Glutose) 22.5 gm Q15M PRN PO DECREASED GLUCOSE; Start 03/31/17 at 19: 00 Dextrose (D50w Syringe) 25 ml Q15M PRN IV DECREASED GLUCOSE; Start 03/31/17 at 19:00 Dextrose (D50w Syringe) 50 ml Q15M PRN IV DECREASED GLUCOSE; Start 03/31/17 at 19:00 Glucagon (Glucagen) 1 mg Q15M PRN IM DECREASED GLUCOSE; Start 03/31/17 at 19:00 Glucose (Glutose) 15 gm Q15M PRN BUCCAL DECREASED GLUCOSE; Start 03/31/17 at 19 :00 Furosemide (Lasix) 20 mg DAILY IV Last administered on 04/02/17 08:53; Admin Dose 20 MG; Start 04/01/17 at 09:00 Metoprolol Tartrate (Lopressor) 50 mg BID PO Last administered on 04/03/17 08: 23; Admin Dose 50 MG; Start 04/01/17 at 21:00 Enoxaparin Sodium (Lovenox) 70 mg Q12 SC Last administered on 04/02/17 09:00; Admin Dose 70 MG; Start 04/01/17 at 13:00; Status Future Hold Isosorbide Dinitrate (Isordil) 10 mg TID PO Last administered on 04/02/17 20: 20; Admin Dose 10 MG; Start 04/01/17 at 13:00 Insulin Glargine (Lantus) 13 unit DAILY@08 SC Last administered on 04/02/17 09 :05; Admin Dose 13 UNIT; Start 04/02/17 at 08:00 Diagnostic Test (Pha) (Accu-Chek) 1 ea 02 XX ; Start 04/02/17 at 02:00 Lorazepam (Ativan) 0.5 mg Q6H PRN PO ANXIETY; Start 04/02/17 at 17:00 KIRSTIN GERONIMO Apr 03, 2017 10:29
[2017-04-03] MEDS ORDERED: AL HYDROX/MG HYDROX/SIMETH 30 ML CUP PO PRN (10:30)
[2017-04-03] MEDS ORDERED: ONDANSETRON 4 MG INJ IV PRN (10:30)
[2017-04-03] MEDS ORDERED: ACETAMINOPHEN 325 MG TAB PO PRN (10:30)
--- NOTE | 2017-04-03 11:12 | CARRPT ---
DATE OF PROCEDURE: 04/03/2017 TYPE OF PROCEDURE: 1. Left heart catheterization. 2. Coronary angiography. 3. Left ventriculogram. 4. Moderate conscious sedation x30 minutes. ATTENDING PHYSICIAN: Kirstin Ledezma MD REFERRING PHYSICIAN: Dr. Santana from the hospitalist service. INDICATION: Non-ST elevation myocardial infarction. TYPE OF ANESTHESIA: Conscious and local. BRIEF HISTORY AND HOSPITAL COURSE: Ms. Carreon is a 71-year-old female with a history of hyperten farhad, diabetes mellitus, dyslipidemia who initially presented with complaints of substernal chest pa in and ruled in for non-ST elevation myocardial infarction with peak troponin greater than 14. The patient was placed on medical therapy, continued to have chest pain, has now been [facility] in order to assess for the possibility of significant obstructive coronary artery dise ase symptoms of chest pain and subsequent acute myocardial infarction. PROCEDURE: After informed consent was obtained, the patient was brought the [facility] cardiac catheterization lab where her right radial area was prepped and draped in the usual st erile fashion. Lidocaine 2% was infiltrated into the right radial area in order to achieve adequate anesthesia. Using modified Seldinger technique, the right radial area was cannulated and a 6-Frenc h arterial sheath was placed. A 6-Italian JL3.5 catheter was used to cannulate the left main coronar y ostium. With contrast injection, multiple views of the left coronary arterial system were obtaine d. JL3.5 was removed over a guidewire and a JR4 was used to cannulate the right coronary arterial o stium. With contrast injection, multiple views of the right coronary arterial system were obtained. JR4 was removed over a guidewire and a 6-Italian pigtail was passed down the ascending aorta into t he left ventricle where left ventricular end-diastolic pressure was measured. Using a power injecto r, 20 mL of contrast were injected, and the pigtail catheter was pulled back across the aortic valve to assess for significant gradient, which there was not and removed. Subsequently, at this time, krystin coburnen the findings of multivessel obstructive coronary artery disease. This completed the procedure. The patient's catheter was removed. Sheath was removed. TR band was applied. There were no note d complications. FINDINGS: 1. Coronary angiography: Left main proximally is a 4.5 mm vessel and just at the bifurcation of wh ere the circumflex should take off in the LAD, there appears to be very distal left main stenosis an d ostial LAD disease up to approximately 90% heavily calcified. The circumflex is flush occluded at its ostium and can be seen to have some distal filling via left to left collaterals from the septal branches of the LAD. The LAD proximally is a 2.5 mm vessel and has a 90% heavily calcified lesion in its ostial portion. There are multiple diagonal branches with the most inferior diagonal branch bifurcating just in the area of significant stenosis. The LAD is a 2 mm vessel and has 80% stenosis . Diagonal #2 has 60 to 70% stenosis and diagonal #3 is a 2 mm vessel and has a 40% stenosis. In t he mid LAD just at the bifurcation with this diagonal additionally there is another approximately 50 % to 60% stenosis. The right coronary artery proximally is a 3 mm vessel and in its proximal portio n shortly after takeoff has a 95% thrombotic appearing stenosis. The right coronary artery thereaft er is a dominant vessel and gives off a 2.5 mm PDA which fills late due to an eccentric-appearing os tial stenosis, approximately 95%. 2. Left ventricular ejection fraction approximately 35% to 40% with global anterolateral hypokinesi s and apical hypokinesis, inferior hypokinesis. Left ventricular end diastolic pressure with 23 pre -LV gram, 25 post-LV gram. No significant aortic stenosis by gradient. TOTAL FLUOROSCOPY TIME: 2.3 minutes. TOTAL CONTRAST: 85 mL. IMPRESSION: 1. Multivessel obstructive coronary artery disease involving high grade lesions in the right paris ry artery. Multiple places LAD. Multiple places and a flush occlusion of the circumflex is some fa int collateral filling via left to left collaterals. 2. Mildly depressed left ventricular systolic function with wall motion abnormalities as above. 3. Elevated left heart filling pressures, 23 to 25. 4. No significant aortic stenosis by gradient. 5. 1+ mitral regurgitation. RECOMMENDATIONS: In light of procedure and the findings at this time would: 1. Assess the patient for a possible coronary artery bypass graft surgery. 2. Maximize medical management. 3. Aggressive risk factor reduction. 4. Patient will be readmitted to the telemetry floor for post-catheterization observation and ernie nued management of symptoms. Dictated By: KIRSTIN VO/JERSEY Conf#: [id number] DID#: [id number] CC: CATHY SANTANA MD;*[facility]*
--- NOTE | 2017-04-03 14:09 | PN ---
Date/Time of Note Date/Time of Note DATE: 04/03/17 TIME: 14:08 Assessment/Plan VTE Prophylaxis VTE Prophylaxis Intervention: SCD's Lines/Catheters IV C[facility]ter Type (from [facility]): Saline Lock Urinary Cath still in place: No Assessment/Plan Chief Complaint/Hosp Course 1. Non-ST elevation myocardial infarction. The patient will be continued on aspirin. Status post left heart catheterization on 04/03/2017 that showed multivessel coronary artery disease. Patient to be evaluated by cardiac surgery. 2. Acute hypoxic respiratory failure, most probably secondary to congestive heart failure exacerbation. Diastolic dysfunction. Improved with diuretic therapy. 3. Dyslipidemia. The patient will be continued on statins. 4. Type 2 diabetes mellitus. Hemoglobin A1c 7.7. The patient will be continued on premeal insulin and Lantus insulin along with sliding scale insulin. 5. Hypothyroidism. Continue Synthroid. 6. Essential hypertension. Continue antihypertensives. 7. Fluid, electrolytes and nutrition. The patient will be continued on a carbohydrate controlled, low cholesterol diet. 8. Deep venous thrombosis prophylaxis. Bilateral SCDs. 9. Gastrointestinal prophylaxis. Histamine 2 receptor blockers. PLAN: 1. Continue inpatient monitoring. 2. Await cardiac surgery evaluation. The case was discussed with Dr. Fragoso. Problems: Subjective 24 Hr Interval Summary Free Text/Dictation Denies any chest pain. Exam/Review of Systems Vital Signs Vitals Vital Signs Date Time Temp Pulse Resp B/P Pulse Ox O2 Delivery O2 Flow Rate FiO2 04/03/17 14:02 79 04/03/17 13:11 98.4 19 136/63 98 04/03/17 12:42 Nasal Cannula 2.0 03/31/17 16:09 100 Intake and Output 04/02/17 04/02/17 04/03/17 15:00 23:00 07:00 Intake Total 1000 ml 250 ml Balance 1000 ml 250 ml Exam GENERAL: This is a 71-year-old female patient lying in bed, no apparent distress. HEENT: Head normocephalic and atraumatic. Eyes: Anicteric sclerae. Conjunctivae clear. ENT: Nasal septum is midline. Oral mucosa is dry. NECK: Supple. No JVD noticed. RESPIRATORY: Bilaterally diminished breath sounds. Bilateral rales heard. No use of accessory muscles of respiration. CARDIAC: Regular rate and rhythm. S1 and S2 heard. ABDOMEN: Soft, nontender and nondistended. Bowel sounds positive in all 4 quadrants. GENITOURINARY: Deferred. EXTREMITIES: No cyanosis, no clubbing, no edema. Peripheral pulses palpable. NEUROLOGIC: The patient is awake, alert and oriented. Cranial nerves are grossly intact. Results Result Diagram: 04/03/17 0636 04/03/17 0636 Results 24 hrs Laboratory Tests Test 04/02/17 17:24 04/02/17 20:18 04/03/17 06:36 04/03/17 08:23 Bedside Glucose 182 157 154 White Blood Count 7.3 Red Blood Count 4.03 L Hemoglobin 11.8 L Hematocrit 35.6 L Mean Corpuscular Volume 88.3 Mean Corpuscular Hemoglobin 29.3 Mean Corpuscular Hemoglobin Concent 33.1 Red Cell Distribution Width 12.9 Platelet Count 189 Mean Platelet Volume 10.0 Neutrophils % 60.7 Lymphocytes % 27.1 Monocytes % 9.9 Eosinophils % 1.8 Basophils % 0.4 Nucleated Red Blood Cells % 0.0 Neutrophils # 4.5 Lymphocytes # 2.0 Monocytes # 0.7 Eosinophils # 0.1 Basophils # 0.0 Nucleated Red Blood Cells # 0.0 Prothrombin Time 13.3 Prothrombin Time Ratio 1.0 INR International Normalized Ratio 1.01 Sodium Level 143 Potassium Level 4.6 Chloride Level 105 Carbon Dioxide Level 26 Anion Gap 17 H Blood Urea Nitrogen 13 Creatinine 0.70 Glucose Level 160 Calcium Level 9.1 Phosphorus Level 3.9 Magnesium Level 2.2 Test 04/03/17 13:09 Bedside Glucose 224 H Medications Medications Current Medications Acetaminophen/ Hydrocodone Bitart ([place] (5/325)) 1 tab Q6H PRN PO MODERATE PAIN LEVEL 4-6; Start 03/31/17 at 18:30 Morphine Sulfate (morphine) 2 mg Q4H PRN IV SEVERE PAIN LEVEL 7-10; Start 03/31 at 18:30 Docusate Sodium (Colace) 100 mg Q12H PRN PO CONSTIPATION; Start 03/31/17 at 18: 30 Magnesium Hydroxide (Milk Of Mag) 30 ml DAILY PRN PO CONSTIPATION; Start at 18:30 Sodium Biphosphate/ Sodium Phosphate (Fleet Enema) 133 ml DAILY PRN [place] CONSTIPATION; Start 03/31/17 at 18:30 Nitroglycerin (Nitroglycerin (Sl Tab) 0.4 Mg) 1 tab Q5M PRN SL ANGINA; Start at 18:30 Colchicine (Colchicine) 0.6 mg DAILY PO Last administered on 04/02/17 08:50; Admin Dose 0.6 MG; Start 04/01/17 at 09:00 Cyclosporine (Restasis) 1 drop Q12 BOTH EYES Last administered on 04/02/17 20: 21; Admin Dose 1 DROP; Start 03/31/17 at 21:00 Fluticasone Propionate (Flonase 0.05% Nasal) 1 spray DAILY NASAL ; Start at 09:00 Gabapentin (Neurontin) 100 mg BID PO Last administered on 04/02/17 20:21; Admin Dose 100 MG; Start 03/31/17 at 21:00 Losartan Potassium (Cozaar) 100 mg DAILY PO Last administered on 04/03/17 08: 24; Admin Dose 100 MG; Start 04/01/17 at 09:00 Meclizine HCl (Antivert) 25 mg Q8H PRN PO DIZZINESS; Start 03/31/17 at 18:30 Fish Oil (Fish Oil) 2,000 mg BID PO Last administered on 04/02/17 08:50; Admin Dose 2,000 MG; Start 03/31/17 at 21:00 Aspirin (Ecotrin) 325 mg DAILY PO Last administered on 04/02/17 08:50; Admin Dose 325 MG; Start 04/01/17 at 09:00 Famotidine (Pepcid) 20 mg DAILY PO Last administered on 04/02/17 08:51; Admin Dose 20 MG; Start 03/31/17 at 18:30 Atorvastatin Calcium (Lipitor) 40 mg HS PO Last administered on 04/02/17 20:21 ; Admin Dose 40 MG; Start 03/31/17 at 21:00 Hydralazine HCl (Apresoline) 10 mg Q6H PRN IV ELEVATED BLOOD PRESSURE Last administered on 04/03/17 11:09; Admin Dose 10 MG; Start 03/31/17 at 18:30 Miscellaneous Information 1 ea NOTE XX ; Start 03/31/17 at 19:00 Glucose (Glutose) 15 gm Q15M PRN PO DECREASED GLUCOSE; Start 03/31/17 at 19:00 Glucose (Glutose) 22.5 gm Q15M PRN PO DECREASED GLUCOSE; Start 03/31/17 at 19: 00 Dextrose (D50w Syringe) 25 ml Q15M PRN IV DECREASED GLUCOSE; Start 03/31/17 at 19:00 Dextrose (D50w Syringe) 50 ml Q15M PRN IV DECREASED GLUCOSE; Start 03/31/17 at 19:00 Glucagon (Glucagen) 1 mg Q15M PRN IM DECREASED GLUCOSE; Start 03/31/17 at 19:00 Glucose (Glutose) 15 gm Q15M PRN BUCCAL DECREASED GLUCOSE; Start 03/31/17 at 19 :00 Furosemide (Lasix) 20 mg DAILY IV Last administered on 04/02/17 08:53; Admin Dose 20 MG; Start 04/01/17 at 09:00 Metoprolol Tartrate (Lopressor) 50 mg BID PO Last administered on 04/03/17 08: 23; Admin Dose 50 MG; Start 04/01/17 at 21:00 Enoxaparin Sodium (Lovenox) 70 mg Q12 SC Last administered on 04/02/17 09:00; Admin Dose 70 MG; Start 04/01/17 at 13:00; Status Future Hold Isosorbide Dinitrate (Isordil) 10 mg TID PO Last administered on 04/03/17 13: 42; Admin Dose 10 MG; Start 04/01/17 at 13:00 Insulin Glargine (Lantus) 13 unit DAILY@08 SC Last administered on 04/02/17 09 :05; Admin Dose 13 UNIT; Start 04/02/17 at 08:00 Diagnostic Test (Pha) (Accu-Chek) 1 ea 02 XX ; Start 04/02/17 at 02:00 Lorazepam (Ativan) 0.5 mg Q6H PRN PO ANXIETY; Start 04/02/17 at 17:00 Acetaminophen (Tylenol Tab) 650 mg Q4H PRN PO NON-CARDIAC PAIN LEVEL (1-3); Start 04/03/17 at 10:30 Al Hydrox/Mg Hydrox/Simethicone (Mag-Al Plus) 30 ml Q4H PRN PO GASTROINTESTINAL UPSET; Start 04/03/17 at 10:30 Ondansetron HCl 4 mg 4 mg Q4H PRN IV NAUSEA AND/OR VOMITING; Start 04/03/17 at 10:30 Sodium Chloride (NS) 1,000 ml @ 75 mls/hr [id number] IV Last administered on 04/03t 10:50; Admin Dose 75 MLS/HR; Start 04/03/17 at 10:01; Stop 04/03/17 at 15: 00 SYLVAIN AGUILAR NP Apr 03, 2017 14:09
--- NOTE | 2017-04-03 15:15 | PN ---
Date/Time of Note Date/Time of Note DATE: 04/03/17 TIME: 15:13 Assessment/Plan Lines/Catheters IV Catheter Type (from Nrs): Saline Lock Guzman in Place (from Nrs): No Assessment/Plan Assessment/Plan Full consult dictated 71 year old female NSTEMI, cath shows severe 3V CAD with normal EF. Discussed risks and benefits of surgery. Will obtain carotid duplex and plan for CABG Saturday Exam/Review of Systems Vital Signs Vitals Vital Signs Date Time Temp Pulse Resp B/P Pulse Ox O2 Delivery O2 Flow Rate FiO2 04/03/17 14:02 79 04/03/17 13:11 98.4 19 136/63 98 04/03/17 12:42 Nasal Cannula 2.0 03/31/17 16:09 100 Intake and Output 04/02/17 04/02/17 04/03/17 15:00 23:00 07:00 Intake Total 1000 ml 250 ml Balance 1000 ml 250 ml Results Result Diagram: 04/03/17 0636 04/03/17 0636 DEIDRE FUNK MD Apr 03, 2017 15:15
--- NOTE | 2017-04-03 16:07 | CONS ---
DATE OF ADMISSION: 03/31/2017 DATE OF CONSULTATION: 04/03/2017 REQUESTING PHYSICIAN: Dr. Ledezma. CONSULTING PHYSICIAN: Dr. Prema Taylor. REASON FOR CONSULTATION: Evaluate for CABG. INDICATIONS: The patient is a 71-year-old female with history of diabetes, hypercholesterolemia and hypertension who was admitted with shortness of breath and neck angina. She had a slight elevation of troponin. She was taken to the cardiac catheterization lab, which showed severe 3-vessel paris ry artery disease with a high-grade lesion in the proximal RCA as well as ostial PDA as well as high grade lesions in the proximal LAD totally occluded circumflex artery with multiple diagonal artery lesions. She is referred for CABG. Her LV function appeared normal on LV gram. PAST MEDICAL HISTORY: As above. ALLERGIES: CODEINE AND GUAIFENESIN. PAST SURGICAL HISTORY: Retinal surgery. FAMILY HISTORY: No history of coronary disease or any other cardiac disease. SOCIAL HISTORY: Denies tobacco or alcohol use. REVIEW OF SYSTEMS: HEENT: Denies any visual or auditory problems. RESPIRATORY: See HPI. Cardiac See HPI. GENITOURINARY: Denies hematuria, dysuria. Denies any blood per rectum, nausea, vomiting. EXTREMITIES: Denies any edema, claudication. NEUROLOGIC: Denies TIA, headaches. Denies any lesions or rashes. PSYCHIATRIC: Denies depression, anxiety. MUSCULOSKELETAL: Denies any back pain or joint pain. PHYSICAL EXAMINATION: GENERAL APPEARANCE: The patient alert, awake, no distress. VITAL SIGNS: Heart rate of 80 with a blood pressure of 126/60, respiratory rate 16. HEENT: Pupils equal, round, react to light. NECK: Supple, no adenopathy and no bruits. LUNGS: Clear to auscultation. No wheezing. CARDIOVASCULAR: Regular rhythm without murmurs. ABDOMEN: Soft, nontender, no organomegaly. EXTREMITIES: 2+ pulses. No edema. NEUROLOGIC: Cranial nerves II through XII intact. Motor and sensory intact. SKIN: No lesions or rashes. PSYCHIATRIC: Mood and affect normal. MUSCULOSKELETAL: No back pain. No joint tenderness. LABORATORY DATA: Her hematocrit is 35.6 and her creatinine is 0.7. ASSESSMENT AND PLAN: This is a 71-year-old female with severe 3-vessel coronary artery disease who will benefit from a coronary artery bypass graft. She is a diabetic and should have 1 to 2 days of hydration prior to surgery. I explained the benefits, the risks, alternatives of surgery to the pat dustin and her family. The the risks are not limited to bleeding, infection, stroke, myocardial infar ction, renal and respiratory failure and . We will obtain a carotid duplex prior to surgery. We will schedule her for 7:30 on Saturday morning. Dictated By: PREMA RAYMUNDO/JER[place] Conf#: [id number] DID#: [id number]
--- NOTE | 2017-04-03 16:07 | RADRPT ---
PROCEDURE: Carotid ultrasound CLINICAL INDICATION: Preoperative examination. TECHNIQUE: Russell scale, color doppler, spectral doppler ultrasound of the bilateral carotid and damion tebral arteries. This study indirectly references the measurement of the distal ICA diameter as the denominator for s tenosis measurement. Validated velocity measurements with angiographic measurements, velocity criter ia are extrapolated from diameter data as defined by: *Cartoid artery stenosis: russell-scale and Doppl er US diagnosis. Society of Radiologists in Ultrasound Consensus Conference. Radiology 2003; 229: 34 0-346. SRU Consensus Conference Criteria for the Diagnosis of Carotid Artery Stenosis* Degree of Stenosis, % ICA PSV, cm/sec Plaque Estimate, % ICA/CCA PSV Ratio Normal <125 None <2.0 <50 <125 <50 <2.0 50 69 125-230 >50 2.0-4.0 >70 but less than near occlusion >230 >50 <4.0 Near occlusion High, low, or undetectable Visible Variable Total occlusion Undetectable Visible, no detectable lumen Not applicable COMPARISON: No prior studies are available for comparison. FINDINGS: Location Right CCA60 cm/sec Prox ICA 109 cm/sec Mid ULP270 cm/sec Dist ICA81 cm/sec ECA81 cm/sec ICA/CCA2.0 Left CCA66 cm/sec Prox ICA 69 cm/sec Mid ICA71 cm/sec Dist ICA78 cm/sec ECA72 cm/sec ICA/CCA1.3 Plaque burden: Calcified plaques present at the origin of both internal carotid arteries. Antegrade flow is seen within the vertebral arteries bilaterally. IMPRESSION: Calcified plaques present at the origin of both internal carotid arteries are not associated with si gnificant flow acceleration; less than 50% stenosis bilaterally. RPTAT: AADD .Rosas Sarabia MD, MD Date Time Electronically viewed and signed by .Rosas Sarabia MD, on 04/03/2017 16:07 .B/
[2017-04-03] MEDS: ATORVASTATIN 40 MG TAB PO SCH (21:07)
[2017-04-03] MEDS: HYDROCODONE/APAP (5/325) TAB PO PRN (21:25)
[2017-04-04] VITALS (15 sets, daily range): BP systolic 90–167; BP diastolic 54–84; PULSE 63–148; RESP 18–20
[2017-04-04] MEDS: ACCU-CHEK XX SCH (02:00)
[2017-04-04] MEDS: HYDROCODONE/APAP (5/325) TAB PO PRN ×2 (02:34→23:02)
[2017-04-04] MEDS: LEVOTHYROXINE 25 MCG TAB PO SCH (06:04)
--- NOTE | 2017-04-04 07:04 | PN ---
Date/Time of Note Date/Time of Note DATE: 04/04/17 TIME: 07:02 Assessment/Plan Lines/Catheters IV Catheter Type (from Nrs): Peripheral IV Guzman in Place (from Nrs): No Assessment/Plan Assessment/Plan carotid duplex did not show any significant obstruction cabg saturday Exam/Review of Systems Vital Signs Vitals Vital Signs Date Time Temp Pulse Resp B/P Pulse Ox O2 Delivery O2 Flow Rate FiO2 04/04/17 04:40 4.0 04/04/17 04:05 63 04/04/17 04:00 98.2 18 148/75 95 04/03/17 12:42 Nasal Cannula 03/31/17 16:09 100 Intake and Output 04/03/17 04/03/17 04/04/17 15:00 23:00 07:00 Intake Total 500 ml 400 ml Balance 500 ml 400 ml Results Result Diagram: 04/03/17 0636 04/03/17 0636 DEIDRE FUNK MD Apr 04, 2017 07:04
[2017-04-04] MEDS: FAMOTIDINE 20 MG TAB PO SCH (08:40)
[2017-04-04] MEDS: COLCHICINE 0.6 MG TAB PO SCH (08:40)
[2017-04-04] MEDS: ISOSORBIDE DINITRATE 10 MG TAB PO SCH ×3 (08:41→21:18)
[2017-04-04] MEDS: LOSARTAN 50 MG TAB PO SCH (08:41)
[2017-04-04] MEDS: FISH OIL 1,000 MG CAP PO SCH ×2 (08:41→21:06)
[2017-04-04] MEDS: FUROSEMIDE 20 MG INJ IV SCH (08:41)
[2017-04-04] MEDS: ASPIRIN (EC) 325 MG TAB PO SCH (08:41)
[2017-04-04] MEDS: METOPROLOL 50 MG TAB PO SCH ×2 (08:42→21:07)
[2017-04-04] MEDS: GABAPENTIN 100 MG CAP PO SCH ×2 (08:42→21:06)
[2017-04-04] MEDS: INSULIN ASPART [NOVOLOG] 3 ML PEN SC SCH ×7 (08:43→21:00)
[2017-04-04] MEDS: INSULIN GLARGINE [LANtus] 3 ML PEN SC SCH (08:44)
[2017-04-04] MEDS: FLUTICASONE 0.05% 16 GM NAS SPRAY NASAL SCH (08:46)
[2017-04-04] MEDS: CYCLOSPORINE 0.05% OPH DROPERETTE BOTH EYES SCH ×2 (08:46→21:07)
[2017-04-04 10:01] LABS: ADD SCAN DIFF NO
[2017-04-04 10:08] LABS: BASOPHILS % 0.6 % (0.0-2.0); EOSINOPHILS # 0.2 10^3/ul (0.0-0.5); EOSINOPHILS % 2.4 % (0.0-7.0); HEMATOCRIT 39.9 % (37.0-47.0); HEMOGLOBIN 12.6 g/dl (12.0-16.0); LYMPHOCYTES # 2.7 10^3/ul (0.8-2.9); LYMPHOCYTES % 38.5 % (15.0-51.0); MEAN CORPUSCULAR HEMOGLOBIN 28.4 pg (29.0-33.0); MEAN CORPUSCULAR HGB CONC 31.6 g/dl (32.0-37.0); MEAN CORPUSCULAR VOLUME 89.9 fl (82.0-101.0); MEAN PLATELET VOLUME 9.9 fl (7.4-10.4); MONOCYTE # 0.5 10^3/ul (0.3-0.9); MONOCYTES % 7.7 % (0.0-11.0); NEUTROPHIL # 3.5 10^3/ul (1.6-7.5); NEUTROPHILS % 50.5 % (39.0-77.0); PLATELET COUNT 231 10^3/UL (140-415); RED BLOOD COUNT 4.44 10^6/ul (4.20-5.40); RED CELL DISTRIBUTION WIDTH 13.2 % (11.5-14.5)
[2017-04-04 10:30] LABS: MAGNESIUM 2.1 mg/dl (1.7-2.5); PHOSPHORUS 3.7 mg/dl (2.5-4.9)
[2017-04-04 10:34] LABS: CALCIUM 9.4 mg/dl (8.4-10.2); CREATININE 0.62 mg/dl (0.44-1.00); POTASSIUM 4.1 mmol/L (3.5-5.1)
--- NOTE | 2017-04-04 11:09 | PN ---
Date/Time of Note Date/Time of Note DATE: 04/04/17 TIME: 11:06 Assessment/Plan VTE Prophylaxis VTE Prophylaxis Intervention: SCD's Lines/Catheters IV C[facility]ter Type (from [facility]): Peripheral IV Urinary Cath still in place: No Assessment/Plan Chief Complaint/Hosp Course 1. Non-ST elevation myocardial infarction. The patient will be continued on aspirin. Status post left heart catheterization on 04/03/2017 that showed multivessel coronary artery disease. Patient was evaluated by cardiac surgery. Plan for CABG on 04/06/2017. 2. Acute hypoxic respiratory failure, most probably secondary to congestive heart failure exacerbation. Diastolic dysfunction. Resolved with diuretic therapy. 3. Dyslipidemia. The patient will be continued on statins. 4. Type 2 diabetes mellitus. Hemoglobin A1c 7.7. The patient will be continued on premeal insulin and Lantus insulin along with sliding scale insulin. 5. Hypothyroidism. Continue Synthroid. 6. Essential hypertension. Continue antihypertensives. 7. Fluid, electrolytes and nutrition. The patient will be continued on a carbohydrate controlled, low cholesterol diet. 8. Deep venous thrombosis prophylaxis. Bilateral SCDs. 9. Gastrointestinal prophylaxis. Histamine 2 receptor blockers. PLAN: 1. Continue inpatient monitoring. 2. Await cardiac surgery on 04/06/2017. The case was discussed with Dr. Fragoso. Problems: Subjective 24 Hr Interval Summary Free Text/Dictation Denies any chest pain. Exam/Review of Systems Vital Signs Vitals Vital Signs Date Time Temp Pulse Resp B/P Pulse Ox O2 Delivery O2 Flow Rate FiO2 04/04/17 08:11 73 04/04/17 07:35 98.4 18 167/84 100 04/04/17 04:40 4.0 04/03/17 12:42 Nasal Cannula 03/31/17 16:09 100 Intake and Output 04/03/17 04/03/17 04/04/17 15:00 23:00 07:00 Intake Total 500 ml 400 ml Balance 500 ml 400 ml Exam GENERAL: This is a 71-year-old female patient lying in bed, no apparent distress. HEENT: Head normocephalic and atraumatic. Eyes: Anicteric sclerae. Conjunctivae clear. ENT: Nasal septum is midline. Oral mucosa is dry. NECK: Supple. No JVD noticed. RESPIRATORY: Bilaterally diminished breath sounds. Bilateral rales heard. No use of accessory muscles of respiration. CARDIAC: Regular rate and rhythm. S1 and S2 heard. ABDOMEN: Soft, nontender and nondistended. Bowel sounds positive in all 4 quadrants. GENITOURINARY: Deferred. EXTREMITIES: No cyanosis, no clubbing, no edema. Peripheral pulses palpable. NEUROLOGIC: The patient is awake, alert and oriented. Cranial nerves are grossly intact. Results Result Diagram: 04/04/17 0925 04/04/17 0925 Results 24 hrs Laboratory Tests Test 04/03/17 13:09 04/03/17 17:13 04/03/17 21:29 04/04/17 08:39 Bedside Glucose 224 H 186 139 143 Test 04/04/17 09:25 White Blood Count 7.0 Red Blood Count 4.44 Hemoglobin 12.6 Hematocrit 39.9 Mean Corpuscular Volume 89.9 Mean Corpuscular Hemoglobin 28.4 L Mean Corpuscular Hemoglobin Concent 31.6 L Red Cell Distribution Width 13.2 Platelet Count 231 # Mean Platelet Volume 9.9 Neutrophils % 50.5 Lymphocytes % 38.5 Monocytes % 7.7 Eosinophils % 2.4 Basophils % 0.6 Nucleated Red Blood Cells % 0.0 Neutrophils # 3.5 Lymphocytes # 2.7 Monocytes # 0.5 Eosinophils # 0.2 Basophils # 0.0 Nucleated Red Blood Cells # 0.0 Sodium Level 142 Potassium Level 4.1 Chloride Level 103 Carbon Dioxide Level 27 Anion Gap 16 Blood Urea Nitrogen 16 Creatinine 0.62 Glucose Level 196 Calcium Level 9.4 Phosphorus Level 3.7 Magnesium Level 2.1 Medications Medications Current Medications Acetaminophen/ Hydrocodone Bitart ([place] (5/325)) 1 tab Q6H PRN PO MODERATE PAIN LEVEL 4-6 Last administered on 04/04/17t 02:34; Admin Dose 1 TAB; Start 09/06 at 18:30 Morphine Sulfate (morphine) 2 mg Q4H PRN IV SEVERE PAIN LEVEL 7-10; Start 03/31 at 18:30 Docusate Sodium (Colace) 100 mg Q12H PRN PO CONSTIPATION; Start 03/31/17 at 18: 30 Magnesium Hydroxide (Milk Of Mag) 30 ml DAILY PRN PO CONSTIPATION; Start at 18:30 Sodium Biphosphate/ Sodium Phosphate (Fleet Enema) 133 ml DAILY PRN [place] CONSTIPATION; Start 03/31/17 at 18:30 Nitroglycerin (Nitroglycerin (Sl Tab) 0.4 Mg) 1 tab Q5M PRN SL ANGINA; Start at 18:30 Colchicine (Colchicine) 0.6 mg DAILY PO Last administered on 04/04/17 08:40; Admin Dose 0.6 MG; Start 04/01/17 at 09:00 Cyclosporine (Restasis) 1 drop Q12 BOTH EYES Last administered on 04/04/17 08: 46; Admin Dose 1 DROP; Start 03/31/17 at 21:00 Fluticasone Propionate (Flonase 0.05% Nasal) 1 spray DAILY NASAL ; Start at 09:00 Gabapentin (Neurontin) 100 mg BID PO Last administered on 04/04/17 08:42; Admin Dose 100 MG; Start 03/31/17 at 21:00 Losartan Potassium (Cozaar) 100 mg DAILY PO Last administered on 04/04/17 08: 41; Admin Dose 100 MG; Start 04/01/17 at 09:00 Meclizine HCl (Antivert) 25 mg Q8H PRN PO DIZZINESS; Start 03/31/17 at 18:30 Fish Oil (Fish Oil) 2,000 mg BID PO Last administered on 04/04/17 08:41; Admin Dose 2,000 MG; Start 03/31/17 at 21:00 Aspirin (Ecotrin) 325 mg DAILY PO Last administered on 04/04/17 08:41; Admin Dose 325 MG; Start 04/01/17 at 09:00 Famotidine (Pepcid) 20 mg DAILY PO Last administered on 04/04/17 08:40; Admin Dose 20 MG; Start 03/31/17 at 18:30 Atorvastatin Calcium (Lipitor) 40 mg HS PO Last administered on 04/03/17 21:07 ; Admin Dose 40 MG; Start 03/31/17 at 21:00 Hydralazine HCl (Apresoline) 10 mg Q6H PRN IV ELEVATED BLOOD PRESSURE Last administered on 04/03/17 11:09; Admin Dose 10 MG; Start 03/31/17 at 18:30 Miscellaneous Information 1 ea NOTE XX ; Start 03/31/17 at 19:00 Glucose (Glutose) 15 gm Q15M PRN PO DECREASED GLUCOSE; Start 03/31/17 at 19:00 Glucose (Glutose) 22.5 gm Q15M PRN PO DECREASED GLUCOSE; Start 03/31/17 at 19: 00 Dextrose (D50w Syringe) 25 ml Q15M PRN IV DECREASED GLUCOSE; Start 03/31/17 at 19:00 Dextrose (D50w Syringe) 50 ml Q15M PRN IV DECREASED GLUCOSE; Start 03/31/17 at 19:00 Glucagon (Glucagen) 1 mg Q15M PRN IM DECREASED GLUCOSE; Start 03/31/17 at 19:00 Glucose (Glutose) 15 gm Q15M PRN BUCCAL DECREASED GLUCOSE; Start 03/31/17 at 19 :00 Furosemide (Lasix) 20 mg DAILY IV Last administered on 04/04/17 08:41; Admin Dose 20 MG; Start 04/01/17 at 09:00 Metoprolol Tartrate (Lopressor) 50 mg BID PO Last administered on 04/04/17 08: 42; Admin Dose 50 MG; Start 04/01/17 at 21:00 Enoxaparin Sodium (Lovenox) 70 mg Q12 SC Last administered on 04/02/17 09:00; Admin Dose 70 MG; Start 04/01/17 at 13:00; Status Future Hold Isosorbide Dinitrate (Isordil) 10 mg TID PO Last administered on 04/04/17 08: 41; Admin Dose 10 MG; Start 04/01/17 at 13:00 Insulin Glargine (Lantus) 13 unit DAILY@08 SC Last administered on 04/04/17 08 :44; Admin Dose 13 UNIT; Start 04/02/17 at 08:00 Diagnostic Test (Pha) (Accu-Chek) 1 ea 02 XX ; Start 04/02/17 at 02:00 Lorazepam (Ativan) 0.5 mg Q6H PRN PO ANXIETY; Start 04/02/17 at 17:00 Acetaminophen (Tylenol Tab) 650 mg Q4H PRN PO NON-CARDIAC PAIN LEVEL (1-3); Start 04/03/17 at 10:30 Al Hydrox/Mg Hydrox/Simethicone (Mag-Al Plus) 30 ml Q4H PRN PO GASTROINTESTINAL UPSET; Start 04/03/17 at 10:30 Ondansetron HCl (Zofran Inj) 4 mg Q4H PRN IV NAUSEA AND/OR VOMITING; Start at 10:30 SYLVAIN AGUILAR NP Apr 04, 2017 11:08
--- NOTE | 2017-04-04 13:56 | CONS ---
Date/Time of Note Date/Time of Note DATE: 04/04/17 TIME: 13:53 Assessment/Plan Assessment/Plan Chief Complaint/Hosp Course IMPRESSION: 1. Acute myocardial infarction, non-ST elevation myocardial infarction downtrending cardiac enzymes currently.. Now POD#0 s/p LHC revealing 100% LCX with LL collateral and high grade LAD ostial/RCA mid/PDA stenosis/LVEF 35-40/no sig 2. Abnormal electrocardiogram with left bundle branch block pattern in the setting of acute myocardial infarction. 3. Chest pain secondary to #1. 4. Hypertension, currently uncontrolled. 5. Dyslipidemia. 6. Hypothyroidism. 7. Diabetes mellitus. 8. Cardiomyopathy-decreased LVEF-mild to moderately Recc: -Tele -serial ecg's -Continue BB/losartan and follow labile BP closely -Continue asa/statin -Continue oral nitrates -Follow volume status closely -Patient agreeable to CABG which is tenatively scheduled for this saturday Problems: Consultation Date/Type/Reason Admit Date/Time Mar 31, 2017 at 17:02 Initial Consult Date 03/31/2017 Type of Consultation: Cardiology Reason for Consultation Nstemi Referring Provider: CATHY SANTANA Exam/Review of Systems Vital Signs Vitals Vital Signs Date Time Temp Pulse Resp B/P Pulse Ox O2 Delivery O2 Flow Rate FiO2 04/04/17 12:01 67 04/04/17 11:42 98.2 18 132/64 94 04/04/17 04:40 4.0 04/03/17 12:42 Nasal Cannula 03/31/17 16:09 100 Intake and Output 04/03/17 04/03/17 04/04/17 15:00 23:00 07:00 Intake Total 500 ml 400 ml Balance 500 ml 400 ml Exam Review of Systems: CONSTITUTIONAL: No fevers, chills. PULMONARY: No sob CARDIOVASCULAR:intermittent chest pain GASTROINTESTINAL: No nausea/vomiting. GENITOURINARY: No hematuria/dysuria. MUSCULOSKELETAL: No myagias/arthalgias. PSYCHIATRIC: The patient denies depression. NEUROLOGIC: No weakness Constitutional: alert, oriented Psych: no complaints Head: normocephalic ENMT: mucosa pink and moist Neck: jvd (8-9 cm water), supple Respiratory: diminished breath sounds (at bases/B) Cardiovascular: regular rate and rhythm Gastrointestinal: non-tender, soft Musculoskeletal: muscle tone (normal) Extremities: edema (none), other (R wrist with palpable pulse. NO sig eccymosis ) Neurological: other (No focal deficits) Results Result Diagram: 04/04/17 0925 04/04/17 0925 Results 24 hrs Laboratory Tests Test 04/03/17 17:13 04/03/17 21:29 04/04/17 08:39 04/04/17 09:25 Bedside Glucose 186 139 143 White Blood Count 7.0 Red Blood Count 4.44 Hemoglobin 12.6 Hematocrit 39.9 Mean Corpuscular Volume 89.9 Mean Corpuscular Hemoglobin 28.4 L Mean Corpuscular Hemoglobin Concent 31.6 L Red Cell Distribution Width 13.2 Platelet Count 231 # Mean Platelet Volume 9.9 Neutrophils % 50.5 Lymphocytes % 38.5 Monocytes % 7.7 Eosinophils % 2.4 Basophils % 0.6 Nucleated Red Blood Cells % 0.0 Neutrophils # 3.5 Lymphocytes # 2.7 Monocytes # 0.5 Eosinophils # 0.2 Basophils # 0.0 Nucleated Red Blood Cells # 0.0 Sodium Level 142 Potassium Level 4.1 Chloride Level 103 Carbon Dioxide Level 27 Anion Gap 16 Blood Urea Nitrogen 16 Creatinine 0.62 Glucose Level 196 Calcium Level 9.4 Phosphorus Level 3.7 Magnesium Level 2.1 Test 04/04/17 12:11 Bedside Glucose 150 Medications Medications Current Medications Acetaminophen/ Hydrocodone Bitart ([place] (5/325)) 1 tab Q6H PRN PO MODERATE PAIN LEVEL 4-6 Last administered on 04/04/17t 02:34; Admin Dose 1 TAB; Start 09/06 at 18:30 Morphine Sulfate (morphine) 2 mg Q4H PRN IV SEVERE PAIN LEVEL 7-10; Start 03/31 at 18:30 Docusate Sodium (Colace) 100 mg Q12H PRN PO CONSTIPATION; Start 03/31/17 at 18: 30 Magnesium Hydroxide (Milk Of Mag) 30 ml DAILY PRN PO CONSTIPATION; Start at 18:30 Sodium Biphosphate/ Sodium Phosphate (Fleet Enema) 133 ml DAILY PRN [place] CONSTIPATION; Start 03/31/17 at 18:30 Nitroglycerin (Nitroglycerin (Sl Tab) 0.4 Mg) 1 tab Q5M PRN SL ANGINA; Start at 18:30 Colchicine (Colchicine) 0.6 mg DAILY PO Last administered on 04/04/17 08:40; Admin Dose 0.6 MG; Start 04/01/17 at 09:00 Cyclosporine (Restasis) 1 drop Q12 BOTH EYES Last administered on 04/04/17 08: 46; Admin Dose 1 DROP; Start 03/31/17 at 21:00 Fluticasone Propionate (Flonase 0.05% Nasal) 1 spray DAILY NASAL ; Start at 09:00 Gabapentin (Neurontin) 100 mg BID PO Last administered on 04/04/17 08:42; Admin Dose 100 MG; Start 03/31/17 at 21:00 Losartan Potassium (Cozaar) 100 mg DAILY PO Last administered on 04/04/17 08: 41; Admin Dose 100 MG; Start 04/01/17 at 09:00 Meclizine HCl (Antivert) 25 mg Q8H PRN PO DIZZINESS; Start 03/31/17 at 18:30 Fish Oil (Fish Oil) 2,000 mg BID PO Last administered on 04/04/17 08:41; Admin Dose 2,000 MG; Start 03/31/17 at 21:00 Aspirin (Ecotrin) 325 mg DAILY PO Last administered on 04/04/17 08:41; Admin Dose 325 MG; Start 04/01/17 at 09:00 Famotidine (Pepcid) 20 mg DAILY PO Last administered on 04/04/17 08:40; Admin Dose 20 MG; Start 03/31/17 at 18:30 Atorvastatin Calcium (Lipitor) 40 mg HS PO Last administered on 04/03/17 21:07 ; Admin Dose 40 MG; Start 03/31/17 at 21:00 Hydralazine HCl (Apresoline) 10 mg Q6H PRN IV ELEVATED BLOOD PRESSURE Last administered on 04/03/17 11:09; Admin Dose 10 MG; Start 03/31/17 at 18:30 Miscellaneous Information 1 ea NOTE XX ; Start 03/31/17 at 19:00 Glucose (Glutose) 15 gm Q15M PRN PO DECREASED GLUCOSE; Start 03/31/17 at 19:00 Glucose (Glutose) 22.5 gm Q15M PRN PO DECREASED GLUCOSE; Start 03/31/17 at 19: 00 Dextrose (D50w Syringe) 25 ml Q15M PRN IV DECREASED GLUCOSE; Start 03/31/17 at 19:00 Dextrose (D50w Syringe) 50 ml Q15M PRN IV DECREASED GLUCOSE; Start 03/31/17 at 19:00 Glucagon (Glucagen) 1 mg Q15M PRN IM DECREASED GLUCOSE; Start 03/31/17 at 19:00 Glucose (Glutose) 15 gm Q15M PRN BUCCAL DECREASED GLUCOSE; Start 03/31/17 at 19 :00 Furosemide (Lasix) 20 mg DAILY IV Last administered on 04/04/17 08:41; Admin Dose 20 MG; Start 04/01/17 at 09:00 Metoprolol Tartrate (Lopressor) 50 mg BID PO Last administered on 04/04/17 08: 42; Admin Dose 50 MG; Start 04/01/17 at 21:00 Enoxaparin Sodium (Lovenox) 70 mg Q12 SC Last administered on 04/02/17 09:00; Admin Dose 70 MG; Start 04/01/17 at 13:00; Status Future Hold Isosorbide Dinitrate (Isordil) 10 mg TID PO Last administered on 04/04/17 12: 19; Admin Dose 10 MG; Start 04/01/17 at 13:00 Insulin Glargine (Lantus) 13 unit DAILY@08 SC Last administered on 04/04/17 08 :44; Admin Dose 13 UNIT; Start 04/02/17 at 08:00 Diagnostic Test (Pha) (Accu-Chek) 1 ea 02 XX ; Start 04/02/17 at 02:00 Lorazepam (Ativan) 0.5 mg Q6H PRN PO ANXIETY; Start 04/02/17 at 17:00 Acetaminophen (Tylenol Tab) 650 mg Q4H PRN PO NON-CARDIAC PAIN LEVEL (1-3); Start 04/03/17 at 10:30 Al Hydrox/Mg Hydrox/Simethicone (Mag-Al Plus) 30 ml Q4H PRN PO GASTROINTESTINAL UPSET; Start 04/03/17 at 10:30 Ondansetron HCl (Zofran Inj) 4 mg Q4H PRN IV NAUSEA AND/OR VOMITING; Start at 10:30 KIRSTIN GERONIMO Apr 04, 2017 13:55
[2017-04-04] MEDS ORDERED: DIGOXIN 500 MCG INJ IV ONE (17:30)
[2017-04-04] MEDS: ATORVASTATIN 40 MG TAB PO SCH (21:06)
[2017-04-05] VITALS (14 sets, daily range): BP systolic 113–179; BP diastolic 58–83; PULSE 63–124; RESP 18–20
[2017-04-05] MEDS: ACCU-CHEK XX SCH (02:00)
[2017-04-05] MEDS: LEVOTHYROXINE 25 MCG TAB PO SCH (06:08)
--- NOTE | 2017-04-05 07:18 | PN ---
Date/Time of Note Date/Time of Note DATE: 04/05/17 TIME: 07:18 Assessment/Plan Lines/Catheters IV Catheter Type (from Nrsg): Peripheral IV Guzman in Place (from Nrsg): No Assessment/Plan Assessment/Plan CABG in AM Exam/Review of Systems Vital Signs Vitals Vital Signs Date Time Temp Pulse Resp B/P Pulse Ox O2 Delivery O2 Flow Rate FiO2 04/05/17 04:44 65 04/05/17 04:20 98.8 19 136/69 98 04/04/17 04:40 4.0 04/03/17 12:42 Nasal Cannula Intake and Output 04/04/17 04/04/17 04/05/17 15:00 23:00 07:00 Intake Total 950 ml Balance 950 ml Results Result Diagram: 04/04/17 0925 04/04/17 0925 DEIDRE FUNK MD Apr 05, 2017 07:18
[2017-04-05] MEDS ORDERED: CEFAZOLIN 2 GM/50 ML (PMX) 50 ML IVPB ONE (07:30)
[2017-04-05 08:17] LABS: MAGNESIUM 2.3 mg/dl (1.7-2.5); PHOSPHORUS 4.7 mg/dl (2.5-4.9)
[2017-04-05 08:23] LABS: ADD SCAN DIFF NO
[2017-04-05 08:25] LABS: BASOPHILS % 0.7 % (0.0-2.0); EOSINOPHILS # 0.2 10^3/ul (0.0-0.5); EOSINOPHILS % 3.4 % (0.0-7.0); HEMOGLOBIN 11.8 g/dl (12.0-16.0); LYMPHOCYTES # 2.1 10^3/ul (0.8-2.9); LYMPHOCYTES % 35.1 % (15.0-51.0); MEAN CORPUSCULAR HEMOGLOBIN 28.8 pg (29.0-33.0); MEAN CORPUSCULAR HGB CONC 32.8 g/dl (32.0-37.0); MEAN CORPUSCULAR VOLUME 87.8 fl (82.0-101.0); MEAN PLATELET VOLUME 10.2 fl (7.4-10.4); MONOCYTE # 0.6 10^3/ul (0.3-0.9); MONOCYTES % 10.4 % (0.0-11.0); NEUTROPHILS % 50.2 % (39.0-77.0); PLATELET COUNT 221 10^3/UL (140-415)
[2017-04-05] MEDS: INSULIN GLARGINE [LANtus] 3 ML PEN SC SCH (08:49)
[2017-04-05] MEDS: INSULIN ASPART [NOVOLOG] 3 ML PEN SC SCH ×7 (08:49→21:24)
[2017-04-05] MEDS: FLUTICASONE 0.05% 16 GM NAS SPRAY NASAL SCH (08:53)
[2017-04-05] MEDS: FISH OIL 1,000 MG CAP PO SCH ×2 (08:54→21:17)
[2017-04-05] MEDS: GABAPENTIN 100 MG CAP PO SCH ×2 (08:54→21:17)
[2017-04-05] MEDS: COLCHICINE 0.6 MG TAB PO SCH (08:54)
[2017-04-05] MEDS: LOSARTAN 50 MG TAB PO SCH (08:54)
[2017-04-05] MEDS: METOPROLOL 50 MG TAB PO SCH ×2 (08:54→21:18)
[2017-04-05] MEDS: FAMOTIDINE 20 MG TAB PO SCH (08:55)
[2017-04-05] MEDS: FUROSEMIDE 20 MG INJ IV SCH (08:55)
[2017-04-05] MEDS: ASPIRIN (EC) 325 MG TAB PO SCH (08:55)
[2017-04-05] MEDS: ISOSORBIDE DINITRATE 10 MG TAB PO SCH ×3 (08:55→21:44)
[2017-04-05 09:08] LABS: CALCIUM 9.8 mg/dl (8.4-10.2); CREATININE 0.57 mg/dl (0.44-1.00); POTASSIUM 4.2 mmol/L (3.5-5.1)
--- NOTE | 2017-04-05 09:56 | PN ---
Date/Time of Note Date/Time of Note DATE: 04/05/17 TIME: 09:55 Assessment/Plan VTE Prophylaxis VTE Prophylaxis Intervention: SCD's Lines/Catheters IV [facility]from [facility] Peripheral IV Urinary Cath still in place: No Assessment/Plan Chief Complaint/Hosp Course 1. Non-ST elevation myocardial infarction. The patient will be continued on aspirin. Status post left heart catheterization on 04/03/2017 that showed multivessel coronary artery disease. Patient was evaluated by cardiac surgery. Plan for CABG on 04/06/2017. 2. Acute hypoxic respiratory failure, most probably secondary to congestive heart failure exacerbation. Diastolic dysfunction. Resolved with diuretic therapy. 3. Dyslipidemia. The patient will be continued on statins. 4. Type 2 diabetes mellitus. Hemoglobin A1c 7.7. The patient will be continued on premeal insulin and Lantus insulin along with sliding scale insulin. 5. Hypothyroidism. Continue Synthroid. 6. Essential hypertension. Continue antihypertensives. 7. Fluid, electrolytes and nutrition. The patient will be continued on a carbohydrate controlled, low cholesterol diet. 8. Deep venous thrombosis prophylaxis. Bilateral SCDs. 9. Gastrointestinal prophylaxis. Histamine 2 receptor blockers. PLAN: 1. Continue inpatient monitoring. 2. Await cardiac surgery on 04/06/2017. The case was discussed with Dr. Fragoso. Problems: Subjective 24 Hr Interval Summary Free Text/Dictation Denies any chest pain. Denies any dyspnea. Exam/Review of Systems Vital Signs Vitals Vital Signs Date Time Temp Pulse Resp B/P Pulse Ox O2 Delivery O2 Flow Rate FiO2 04/05/17 08:02 66 04/05/17 07:58 97.6 18 179/83 98 04/04/17 04:40 4.0 04/03/17 12:42 Nasal Cannula Intake and Output 04/04/17 04/04/17 04/05/17 15:00 23:00 07:00 Intake Total 950 ml Balance 950 ml Exam GENERAL: This is a 71-year-old female patient lying in bed, no apparent distress. HEENT: Head normocephalic and atraumatic. Eyes: Anicteric sclerae. Conjunctivae clear. ENT: Nasal septum is midline. Oral mucosa is dry. NECK: Supple. No JVD noticed. RESPIRATORY: Bilaterally diminished breath sounds. Bilateral rales heard. No use of accessory muscles of respiration. CARDIAC: Regular rate and rhythm. S1 and S2 heard. ABDOMEN: Soft, nontender and nondistended. Bowel sounds positive in all 4 quadrants. GENITOURINARY: Deferred. EXTREMITIES: No cyanosis, no clubbing, no edema. Peripheral pulses palpable. NEUROLOGIC: The patient is awake, alert and oriented. Cranial nerves are grossly intact. Results Result Diagram: 04/05/17 0600 04/05/17 0600 Results 24 hrs Laboratory Tests Test 04/04/17 12:11 04/04/17 17:22 04/04/17 21:20 04/05/17 06:00 Bedside Glucose 150 149 172 White Blood Count 6.0 Red Blood Count 4.10 L Hemoglobin 11.8 L Hematocrit 36.0 L Mean Corpuscular Volume 87.8 Mean Corpuscular Hemoglobin 28.8 L Mean Corpuscular Hemoglobin Concent 32.8 Red Cell Distribution Width 13.0 Platelet Count 221 Mean Platelet Volume 10.2 Neutrophils % 50.2 Lymphocytes % 35.1 Monocytes % 10.4 Eosinophils % 3.4 Basophils % 0.7 Nucleated Red Blood Cells % 0.0 Neutrophils # 3.0 Lymphocytes # 2.1 Monocytes # 0.6 Eosinophils # 0.2 Basophils # 0.0 Nucleated Red Blood Cells # 0.0 Sodium Level 145 H Potassium Level 4.2 Chloride Level 105 Carbon Dioxide Level 26 Anion Gap 18 H Blood Urea Nitrogen 16 Creatinine 0.57 Glucose Level 138 # Calcium Level 9.8 Test 04/05/17 06:17 04/05/17 08:38 Phosphorus Level 4.7 Magnesium Level 2.3 Bedside Glucose 167 Medications Medications Current Medications Acetaminophen/ Hydrocodone Bitart ([place] (5/325)) 1 tab Q6H PRN PO MODERATE PAIN LEVEL 4-6 Last administered on 04/04/17 23:02; Admin Dose 1 TAB; Start 09/06 at 18:30 Morphine Sulfate (morphine) 2 mg Q4H PRN IV SEVERE PAIN LEVEL 7-10; Start 03/31 at 18:30 Docusate Sodium (Colace) 100 mg Q12H PRN PO CONSTIPATION Last administered on 14:47; Admin Dose 100 MG; Start 03/31/17 at 18:30 Magnesium Hydroxide (Milk Of Mag) 30 ml DAILY PRN PO CONSTIPATION Last administered on 04/04/17 14:47; Admin Dose 30 ML; Start 03/31/17 at 18:30 Sodium Biphosphate/ Sodium Phosphate (Fleet Enema) 133 ml DAILY PRN [place] CONSTIPATION; Start 03/31/17 at 18:30 Nitroglycerin (Nitroglycerin (Sl Tab) 0.4 Mg) 1 tab Q5M PRN SL ANGINA; Start at 18:30 Colchicine (Colchicine) 0.6 mg DAILY PO Last administered on 04/05/17 08:54; Admin Dose 0.6 MG; Start 04/01/17 at 09:00 Cyclosporine (Restasis) 1 drop Q12 BOTH EYES Last administered on 04/04/17 21: 07; Admin Dose 1 DROP; Start 03/31/17 at 21:00 Fluticasone Propionate (Flonase 0.05% Nasal) 1 spray DAILY NASAL Last administered on 04/05/17 08:53; Admin Dose 1 SPRAY; Start 04/01/17 at 09:00 Gabapentin (Neurontin) 100 mg BID PO Last administered on 04/05/17 08:54; Admin Dose 100 MG; Start 03/31/17 at 21:00 Losartan Potassium (Cozaar) 100 mg DAILY PO Last administered on 04/05/17 08: 54; Admin Dose 100 MG; Start 04/01/17 at 09:00 Meclizine HCl (Antivert) 25 mg Q8H PRN PO DIZZINESS; Start 03/31/17 at 18:30 Fish Oil (Fish Oil) 2,000 mg BID PO Last administered on 04/05/17 08:54; Admin Dose 2,000 MG; Start 03/31/17 at 21:00 Aspirin (Ecotrin) 325 mg DAILY PO Last administered on 04/05/17 08:55; Admin Dose 325 MG; Start 04/01/17 at 09:00 Famotidine (Pepcid) 20 mg DAILY PO Last administered on 04/05/17 08:55; Admin Dose 20 MG; Start 03/31/17 at 18:30 Atorvastatin Calcium (Lipitor) 40 mg HS PO Last administered on 04/04/17 21:06 ; Admin Dose 40 MG; Start 03/31/17 at 21:00 Hydralazine HCl (Apresoline) 10 mg Q6H PRN IV ELEVATED BLOOD PRESSURE Last administered on 04/03/17 11:09; Admin Dose 10 MG; Start 03/31/17 at 18:30 Miscellaneous Information 1 ea NOTE XX ; Start 03/31/17 at 19:00 Glucose (Glutose) 15 gm Q15M PRN PO DECREASED GLUCOSE; Start 03/31/17 at 19:00 Glucose (Glutose) 22.5 gm Q15M PRN PO DECREASED GLUCOSE; Start 03/31/17 at 19: 00 Dextrose (D50w Syringe) 25 ml Q15M PRN IV DECREASED GLUCOSE; Start 03/31/17 at 19:00 Dextrose (D50w Syringe) 50 ml Q15M PRN IV DECREASED GLUCOSE; Start 03/31/17 at 19:00 Glucagon (Glucagen) 1 mg Q15M PRN IM DECREASED GLUCOSE; Start 03/31/17 at 19:00 Glucose (Glutose) 15 gm Q15M PRN BUCCAL DECREASED GLUCOSE; Start 03/31/17 at 19 :00 Furosemide (Lasix) 20 mg DAILY IV Last administered on 04/05/17 08:55; Admin Dose 20 MG; Start 04/01/17 at 09:00 Metoprolol Tartrate (Lopressor) 50 mg BID PO Last administered on 04/05/17 08: 54; Admin Dose 50 MG; Start 04/01/17 at 21:00 Enoxaparin Sodium (Lovenox) 70 mg Q12 SC Last administered on 04/02/17 09:00; Admin Dose 70 MG; Start 04/01/17 at 13:00; Status Future Hold Isosorbide Dinitrate (Isordil) 10 mg TID PO Last administered on 04/05/17 08: 55; Admin Dose 10 MG; Start 04/01/17 at 13:00 Insulin Glargine (Lantus) 13 unit DAILY@08 SC Last administered on 04/05/17 08 :49; Admin Dose 13 UNIT; Start 04/02/17 at 08:00 Diagnostic Test (Pha) (Accu-Chek) 1 ea 02 XX ; Start 04/02/17 at 02:00 Lorazepam (Ativan) 0.5 mg Q6H PRN PO ANXIETY; Start 04/02/17 at 17:00 Acetaminophen (Tylenol Tab) 650 mg Q4H PRN PO NON-CARDIAC PAIN LEVEL (1-3); Start 04/03/17 at 10:30 Al Hydrox/Mg Hydrox/Simethicone (Mag-Al Plus) 30 ml Q4H PRN PO GASTROINTESTINAL UPSET; Start 04/03/17 at 10:30 Ondansetron HCl (Zofran Inj) 4 mg Q4H PRN IV NAUSEA AND/OR VOMITING; Start at 10:30 SYLVAIN AGUILAR NP Apr 05, 2017 09:56
[2017-04-05] MEDS: CYCLOSPORINE 0.05% OPH DROPERETTE BOTH EYES SCH ×2 (10:58→21:16)
--- NOTE | 2017-04-05 19:01 | CONS ---
Date/Time of Note Date/Time of Note DATE: 04/05/17 TIME: 18:59 Assessment/Plan Assessment/Plan Chief Complaint/Hosp Course IMPRESSION: 1. Acute myocardial infarction, non-ST elevation myocardial infarction downtrending cardiac enzymes currently.. Now POD#2 s/p LHC revealing 100% LCX with LL collateral and high grade LAD ostial/RCA mid/PDA stenosis/LVEF 40/no sig 2. Abnormal electrocardiogram with left bundle branch block pattern in the setting of acute myocardial infarction. 3. Chest pain secondary to #1. 4. Hypertension, currently uncontrolled. 5. Dyslipidemia. 6. Hypothyroidism. 7. Diabetes mellitus. 8. Cardiomyopathy-decreased LVEF-mild to moderately Recc: -Tele -serial ecg's -Continue BB/losartan and follow labile BP closely -Continue asa/statin -Continue oral nitrates -Follow volume status closely -Patient agreeable to CABG which is scheduled for tomorrow AM Problems: Consultation Date/Type/Reason Admit Date/Time Mar 31, 2017 at 17:02 Initial Consult Date 03/31/2017 Type of Consultation: Cardiology Reason for Consultation nstemi/cad Referring Provider: CATHY SANTANA Exam/Review of Systems Vital Signs Vitals Vital Signs Date Time Temp Pulse Resp B/P Pulse Ox O2 Delivery O2 Flow Rate FiO2 04/05/17 16:15 98.0 73 18 126/67 98 04/04/17 04:40 4.0 04/03/17 12:42 Nasal Cannula Intake and Output 04/04/17 04/04/17 04/05/17 14:59 22:59 06:59 Intake Total 950 ml Balance 950 ml Exam Review of Systems: CONSTITUTIONAL: No fevers, chills. PULMONARY: No sob CARDIOVASCULAR: intermittent chest pain GASTROINTESTINAL: No nausea/vomiting. GENITOURINARY: No hematuria/dysuria. MUSCULOSKELETAL: No myagias/arthalgias. PSYCHIATRIC: The patient denies depression. NEUROLOGIC: No weakness Constitutional: alert, oriented Psych: no complaints ENMT: mucosa pink and moist Neck: jvd (9 cm water), supple Respiratory: diminished breath sounds (at bases/B) Cardiovascular: regular rate and rhythm Gastrointestinal: non-tender, soft Musculoskeletal: muscle tone (normal) Extremities: edema (none) Neurological: other (No focal deficits) Results Result Diagram: 04/05/17 0600 04/05/17 0600 Results 24 hrs Laboratory Tests Test 04/04/17 21:20 04/05/17 06:00 04/05/17 06:17 04/05/17 08:38 Bedside Glucose 172 167 White Blood Count 6.0 Red Blood Count 4.10 L Hemoglobin 11.8 L Hematocrit 36.0 L Mean Corpuscular Volume 87.8 Mean Corpuscular Hemoglobin 28.8 L Mean Corpuscular Hemoglobin Concent 32.8 Red Cell Distribution Width 13.0 Platelet Count 221 Mean Platelet Volume 10.2 Neutrophils % 50.2 Lymphocytes % 35.1 Monocytes % 10.4 Eosinophils % 3.4 Basophils % 0.7 Nucleated Red Blood Cells % 0.0 Neutrophils # 3.0 Lymphocytes # 2.1 Monocytes # 0.6 Eosinophils # 0.2 Basophils # 0.0 Nucleated Red Blood Cells # 0.0 Sodium Level 145 H Potassium Level 4.2 Chloride Level 105 Carbon Dioxide Level 26 Anion Gap 18 H Blood Urea Nitrogen 16 Creatinine 0.57 Glucose Level 138 # Calcium Level 9.8 Phosphorus Level 4.7 Magnesium Level 2.3 Test 04/05/17 12:50 04/05/17 17:29 Bedside Glucose 148 153 Medications Medications Current Medications Acetaminophen/ Hydrocodone Bitart ([place] (5/325)) 1 tab Q6H PRN PO MODERATE PAIN LEVEL 4-6 Last administered on 04/04/17 23:02; Admin Dose 1 TAB; Start 09/06 at 18:30 Morphine Sulfate (morphine) 2 mg Q4H PRN IV SEVERE PAIN LEVEL 7-10; Start 03/31 at 18:30 Docusate Sodium (Colace) 100 mg Q12H PRN PO CONSTIPATION Last administered on 14:47; Admin Dose 100 MG; Start 03/31/17 at 18:30 Magnesium Hydroxide (Milk Of Mag) 30 ml DAILY PRN PO CONSTIPATION Last administered on 04/04/17 14:47; Admin Dose 30 ML; Start 03/31/17 at 18:30 Sodium Biphosphate/ Sodium Phosphate (Fleet Enema) 133 ml DAILY PRN [place] CONSTIPATION; Start 03/31/17 at 18:30 Nitroglycerin (Nitroglycerin (Sl Tab) 0.4 Mg) 1 tab Q5M PRN SL ANGINA; Start at 18:30 Colchicine (Colchicine) 0.6 mg DAILY PO Last administered on 04/05/17 08:54; Admin Dose 0.6 MG; Start 04/01/17 at 09:00 Cyclosporine (Restasis) 1 drop Q12 BOTH EYES Last administered on 04/05/17 10: 58; Admin Dose 1 DROP; Start 03/31/17 at 21:00 Fluticasone Propionate (Flonase 0.05% Nasal) 1 spray DAILY NASAL Last administered on 04/05/17 08:53; Admin Dose 1 SPRAY; Start 04/01/17 at 09:00 Gabapentin (Neurontin) 100 mg BID PO Last administered on 04/05/17 08:54; Admin Dose 100 MG; Start 03/31/17 at 21:00 Losartan Potassium (Cozaar) 100 mg DAILY PO Last administered on 04/05/17 08: 54; Admin Dose 100 MG; Start 04/01/17 at 09:00 Meclizine HCl (Antivert) 25 mg Q8H PRN PO DIZZINESS; Start 03/31/17 at 18:30 Fish Oil (Fish Oil) 2,000 mg BID PO Last administered on 04/05/17 08:54; Admin Dose 2,000 MG; Start 03/31/17 at 21:00 Aspirin (Ecotrin) 325 mg DAILY PO Last administered on 04/05/17 08:55; Admin Dose 325 MG; Start 04/01/17 at 09:00 Famotidine (Pepcid) 20 mg DAILY PO Last administered on 04/05/17 08:55; Admin Dose 20 MG; Start 03/31/17 at 18:30 Atorvastatin Calcium (Lipitor) 40 mg HS PO Last administered on 04/04/17 21:06 ; Admin Dose 40 MG; Start 03/31/17 at 21:00 Hydralazine HCl (Apresoline) 10 mg Q6H PRN IV ELEVATED BLOOD PRESSURE Last administered on 04/03/17 11:09; Admin Dose 10 MG; Start 03/31/17 at 18:30 Miscellaneous Information 1 ea NOTE XX ; Start 03/31/17 at 19:00 Glucose (Glutose) 15 gm Q15M PRN PO DECREASED GLUCOSE; Start 03/31/17 at 19:00 Glucose (Glutose) 22.5 gm Q15M PRN PO DECREASED GLUCOSE; Start 03/31/17 at 19: 00 Dextrose (D50w Syringe) 25 ml Q15M PRN IV DECREASED GLUCOSE; Start 03/31/17 at 19:00 Dextrose (D50w Syringe) 50 ml Q15M PRN IV DECREASED GLUCOSE; Start 03/31/17 at 19:00 Glucagon (Glucagen) 1 mg Q15M PRN IM DECREASED GLUCOSE; Start 03/31/17 at 19:00 Glucose (Glutose) 15 gm Q15M PRN BUCCAL DECREASED GLUCOSE; Start 03/31/17 at 19 :00 Furosemide (Lasix) 20 mg DAILY IV Last administered on 04/05/17 08:55; Admin Dose 20 MG; Start 04/01/17 at 09:00 Metoprolol Tartrate (Lopressor) 50 mg BID PO Last administered on 04/05/17 08: 54; Admin Dose 50 MG; Start 04/01/17 at 21:00 Enoxaparin Sodium (Lovenox) 70 mg Q12 SC Last administered on 04/02/17 09:00; Admin Dose 70 MG; Start 04/01/17 at 13:00; Status Future Hold Isosorbide Dinitrate (Isordil) 10 mg TID PO Last administered on 04/05/17 12: 53; Admin Dose 10 MG; Start 04/01/17 at 13:00 Insulin Glargine (Lantus) 13 unit DAILY@08 SC Last administered on 04/05/17 08 :49; Admin Dose 13 UNIT; Start 04/02/17 at 08:00 Diagnostic Test (Pha) (Accu-Chek) 1 ea 02 XX ; Start 04/02/17 at 02:00 Lorazepam (Ativan) 0.5 mg Q6H PRN PO ANXIETY; Start 04/02/17 at 17:00 Acetaminophen (Tylenol Tab) 650 mg Q4H PRN PO NON-CARDIAC PAIN LEVEL (1-3); Start 04/03/17 at 10:30 Al Hydrox/Mg Hydrox/Simethicone (Mag-Al Plus) 30 ml Q4H PRN PO GASTROINTESTINAL UPSET; Start 04/03/17 at 10:30 Ondansetron HCl 4 mg 4 mg Q4H PRN IV NAUSEA AND/OR VOMITING; Start 04/03/17 at 10:30 Insulin Human Regular 100 unit/ Sodium Chloride 100 ml @ 0 mls/hr Q0M ONCE IVPB ; Start 04/06/17 at 07:30; Stop 04/06/17 at 07:31 Norepinephrine 250 ml @ 0 mls/hr ONCE ONCE IV ; Start 04/06/17 at 07:30; Stop 04/06/17 at 07:31 Epinephrine 4 mg/ Dextrose 250 ml @ 0 mls/hr Q0M ONCE IV ; Start 04/06/17 at 07: 30; Stop 04/06/17 at 07:31 Phenylephrine HCl (Corbin-Syneph) 250 ml @ 0 mls/hr ONCE ONCE IV ; Start 04/06/17 at 07:30; Stop 04/06/17 at 07:31 Aspirin 600 mg 600 mg ONCE ONCE PA ; Start 04/06/17 at 07:30; Stop 04/06/17 at 07:31 Heparin Sodium (Porcine) 24593 unit/Milrinone Lactate 10 mg/ Sodium Chloride 1, 011 ml @ 0 mls/hr ONCE ONCE SC ; Start 04/06/17 at 07:30; Stop 04/06/17 at 07: 31 Milrinone Lactate/ Sodium Chloride (Primacor/NS) 52 ml @ 0 mls/hr ONCE ONCE IV ; Start 04/06/17 at 07:30; Stop 04/06/17 at 07:31 KIRSTIN GERONIMO Apr 05, 2017 19:01
[2017-04-05] MEDS: ATORVASTATIN 40 MG TAB PO SCH (21:17)
[2017-04-05] MEDS: HYDROCODONE/APAP (5/325) TAB PO PRN (21:46)
[2017-04-06] VITALS (47 sets, daily range): BP systolic 67–148; BP diastolic 35–74; PULSE 63–116; RESP 10–28; TEMP 98.5–101.9
[2017-04-06] MEDS: ACCU-CHEK XX SCH ×13 (02:38→23:42)
[2017-04-06] MEDS ORDERED: VANCOMYCIN 1 GM INJ ONE (06:40)
[2017-04-06] MEDS ORDERED: SODIUM CL BACTERIOSTATIC 30 ML INJ ONE (06:40)
[2017-04-06] MEDS ORDERED: HEPARIN 1000 UNITS/ML 10 ML INJ ONE ×4 (06:41→09:21)
[2017-04-06] MEDS ORDERED: PAPAVERINE 60 MG INJ ONE (06:41)
[2017-04-06] MEDS ORDERED: MILRINONE LACTATE 1 MG/ML VIAL ONE (06:41)
[2017-04-06] MEDS ORDERED: PHENYLephrine 10 MG INJ ONE (06:46)
[2017-04-06] MEDS ORDERED: ALBUMIN HUMAN 5% 0 ML ONE (06:46)
[2017-04-06] MEDS ORDERED: ALBUMIN HUMAN 25% 100 ML ONE ×3 (06:48→12:33)
[2017-04-06] MEDS ORDERED: LIDOCAINE 100 MG SYRINGE ONE (06:49)
[2017-04-06] MEDS ORDERED: CA CHLORIDE 10% 10 ML SYRINGE ONE (06:50)
[2017-04-06] MEDS ORDERED: NA BICARBONATE 8.4% 50 ML SYG ONE (06:50)
[2017-04-06] MEDS ORDERED: POTASSIUM CHLORIDE 40 MEQ INJ ONE (06:52)
[2017-04-06] MEDS ORDERED: MAGNESIUM SULFATE (MG) 50% 10 ML INJ ONE (06:53)
[2017-04-06] MEDS ORDERED: AMINOCAPROIC ACID 5 GM INJ ONE ×2 (06:54→08:09)
--- NOTE | 2017-04-06 06:54 | HPN ---
Date/Time of Note Date/Time of Note DATE: 04/06/17 TIME: 06:53 Interval H&P Admission Note Pt. seen H&P reviewed: No system changes DEIDRE FUNK MD Apr 06, 2017 06:54
[2017-04-06] MEDS ORDERED: DOPamine-D5W 1.6 MG/ML 250 ML ONE (07:00)
[2017-04-06] MEDS ORDERED: NITROGLYCERIN 50 MG/D5W 250 ML BTL ONE (07:00)
[2017-04-06] MEDS ORDERED: MIDAZOLAM 5 ML ONE ×2 (07:10→08:18)
[2017-04-06] MEDS ORDERED: PHENYLephrine (100 MCG/ML) 5ML SYG ONE ×5 (07:14→12:22)
[2017-04-06] MEDS ORDERED: NORepinephrine 8MG/250 ML (PMX 250 ML IV ONE (07:30)
[2017-04-06] MEDS ORDERED: MILRINONE LACTATE 2 MG in SOD CHLORIDE 0.9% 50 ML IV ONE (07:30)
[2017-04-06] MEDS ORDERED: EPINEPHrine 4 MG in DEXTROSE 5% 246 ML IV ONE (07:30)
[2017-04-06] MEDS ORDERED: PHENYLephrine 20MG IN 250 ML 250 ML IV ONE (07:30)
[2017-04-06] MEDS ORDERED: HEPARIN (10000 UNITS/ML) 10,000 UNIT, MILRINONE LACTATE 10 MG in SOD CHLORIDE 0.9% 1,00... SC ONE (07:30)
[2017-04-06] MEDS ORDERED: ASPIRIN 600 MG SUPP PR ONE (07:30)
[2017-04-06] MEDS ORDERED: INSULIN HUMAN REGULAR 100 UNIT in SOD CHLORIDE 0.9% 99 ML IVPB ONE (07:30)
[2017-04-06] MEDS ORDERED: CEFAZOLIN 1 GM INJ ONE ×2 (08:09→09:51)
[2017-04-06] MEDS ORDERED: HEPARIN 1000 UNITS/ML 10 ML INJ IRR ONE (09:00)
[2017-04-06] MEDS: FISH OIL 1,000 MG CAP PO SCH ×2 (09:00→20:35)
[2017-04-06] MEDS ORDERED: PAPAVERINE 60 MG INJ ZFS ONE (09:03)
[2017-04-06] MEDS ORDERED: VANCOMYCIN 1 GM INJ IVPB ONE (09:04)
[2017-04-06] MEDS ORDERED: MANNITOL 25% 50 ML ONE (09:32)
[2017-04-06] MEDS ORDERED: PROTAMINE 250 MG INJ ONE (09:50)
[2017-04-06] MEDS ORDERED: THROMBIN(HUM PLAS)/FIBRINOG/CA 5 ML VIAL TOP ONE (11:09)
[2017-04-06] MEDS ORDERED: FUROSEMIDE 20 MG INJ ONE (11:44)
[2017-04-06] MEDS ORDERED: LIDOCAINE 2% (SDV) 5 ML INJ ONE (12:07)
[2017-04-06] MEDS ORDERED: ETOMIDATE 20 MG INJ ONE (12:07)
[2017-04-06] MEDS ORDERED: ROCURONIUM 50 MG INJ ONE (12:07)
--- NOTE | 2017-04-06 12:20 | OPR ---
Date/Time of Note Date/Time of Note DATE: 04/06/17 TIME: 12:18 Operative Report Preoperative Diagnosis NSTEMI, 3 VESSEL CAD Postoperative Diagnosis SAME Operation/Procedure Performed CABGX5 BRANHAM TO LAD, SVG TO PDA, SVG TO OM, SVG TO DIAG1 TO DIAG2 Surgeon: DEIDRE FUNK MD Co-Surgeon: KARLA DEAN MD business assistant: DIPTI ROE Anesthesia: general Estimated Blood Loss: other Specimens NONE Complications: None DEIDRE FUNK MD Apr 06, 2017 12:20
--- NOTE | 2017-04-06 12:23 | RADRPT ---
PROCEDURE: XR Chest. CLINICAL INDICATION: Postop open heart surgery. Evaluate for retained instrumentation. TECHNIQUE: Chest x-ray, single view. COMPARISON: 03/31/2017. FINDINGS: The cardiac silhouette is slightly magnified. Aortic arch atherosclerotic calcification is present. An endotracheal tube terminates within the mid trachea. A left chest tube is in place. There is also a mediastinal drain within the midline chest. There may be a subtle trace left apical pneumoth orax. There is no evidence of pneumomediastinum. A Raymond-Juwan catheter terminates in the expected lo cation of the main pulmonary artery. Low lung volumes are present. A diffuse interstitial pattern i s observed and slightly improved from prior examination. Skeletal structures and upper abdomen are unremarkable. There is no evidence of a retained surgical instrumentation. IMPRESSION: Hypoinflation with diffuse interstitial pattern. Postop support lines and tubes, as described above. There is a possible trace left apical pneumotho rax. Attention on follow-up x-ray. No evidence of retained surgical instrumentation. RPTAT: HLST .Krystal Sullivan MD, Date Time Electronically viewed and signed by .Krystal Sullivan MD, on 04/06/2017 12:23 .T/
[2017-04-06] MEDS ORDERED: ACETAMINOPHEN 650 MG SUPP PR PRN (12:30)
[2017-04-06] MEDS ORDERED: OXYCODONE/ACETAMINOPHEN (5/325) TAB PO PRN (12:30)
[2017-04-06] MEDS ORDERED: NITROGLYCERIN 50 MG/D5W (PMX) 250 ML IV SCH ×2 (12:30→13:00)
[2017-04-06] MEDS ORDERED: MAGNESIUM SULFATE 1 GM/D5W 100 ML IVPB PRN (12:30)
[2017-04-06] MEDS ORDERED: DEXTROSE 50% 50 ML SYRINGE IV PRN ×2 (12:30)
[2017-04-06] MEDS ORDERED: DOPamine-D5W 1.6 MG/ML 250 ML IV SCH ×2 (12:30→13:00)
[2017-04-06] MEDS ORDERED: ONDANSETRON 4 MG INJ IV PRN (12:30)
[2017-04-06] MEDS ORDERED: ACETAMINOPHEN 325 MG TAB PO PRN (12:30)
[2017-04-06] MEDS ORDERED: ALBUMIN HUMAN 5% 250 ML ONE (12:33)
[2017-04-06] MEDS ORDERED: PHENYLephrine 20MG IN 250 ML 250 ML IV SCH (13:00)
--- NOTE | 2017-04-06 13:18 | OPR ---
DATE OF OPERATION: 04/06/2017 PREOPERATIVE DIAGNOSES: 1. Non-ST elevation myocardial infarction. 2. Three-vessel coronary artery disease. POSTOPERATIVE DIAGNOSES: 1. Non-ST elevation myocardial infarction. 2. Three-vessel coronary artery disease. PROCEDURE PERFORMED: CABG x5, BRANHAM to LAD, SVG to PDA, SVG to obtuse marginal artery, SVG to diago nal artery #1, sequence to diagonal artery #2, endoscopic vein harvesting of the greater saphenous v ein from both lower extremities, epiaortic scanning of the ascending aorta. SURGEON: Deidre Funk MD CABLE TELEVISION ACCESS COORDINATOR: Erich Leyva MD SECOND WHITING CAN WORKER: ROB Christopher ANESTHESIOLOGIST: Jason Webber MD TYPE OF ANESTHESIA: General endotracheal. COMPLICATIONS: None. FINDINGS: Cardiopulmonary bypass time was 107 minutes. Crossclamp time was 83 minutes. The PDA wa s a 2 mm vessel. We were able to probe proximally into the RCA. We had a flow of 118 mL/minute. T he diagonal artery sequence grafts were 40 mL/minute and the sizes were 1.75 mm in diameter. Her ob tuse marginal artery was a 1.75 mm vessel and the flow in this was 24 mL/minute. The LAD was a 1.75 mm vessel and the flow in this was 10 mL/minute. No atheromas or plaques were noted in the ascendi ng aorta. INDICATION: The patient is a 71-year-old female who was admitted with a non-STEMI. She underwent a ngiogram, which showed severe 3-vessel coronary artery disease. She was referred for urgent CABG. Benefits, risks, alternatives were explained. She understood and consented. DESCRIPTION OF PROCEDURE: The patient was brought to the operating room. She was placed in supine position. She was induced and underwent general endotracheal intubation without complications. Amarilys es were placed. Antibiotics were given. She was prepped and draped in the usual sterile fashion. Median sternotomy was made simultaneous to endoscopic vein harvesting from both lower extremities. BRANHAM was taken down using clips and cautery. Heparin was given. Pericardial well was established. The ascending aorta was scanned. There were no atheromas or plaques noted. We placed a pursestrin g in the ascending aorta followed by the right atrium. We then cannulated the ascending aorta follo wed by 2-stage venous cannula in the right atrium. We then placed an ascending aortic vent. Once a ll our lines were in place, we commenced cardiopulmonary bypass. We then placed a crossclamp and ar rested the heart using antegrade cardioplegia and topical ice. Once the heart was arrested, we identified the obtuse marginal artery. We made our arteriotomy, ext ended with Rosenberg scissors and anastomosed our vein graft using 7-0 Prolene in running fashion in end -to-side manner. More cardioplegia was given. We then identified the proximal PDA. We made our ar teriotomy. We were able to probe into the distal RCA. We then anastomosed our vein graft using 7-0 Prolene in running fashion in end-to-side manner. The vein graft was cut to length. We then gave more cardioplegia. We then identified diagonal artery #1. We made our arteriotomy and a venotomy a nd performed [id number] anastomoses using 7-0 Prolene in running fashion in end-to-side manner. W e then identified diagonal artery #2. We made our arteriotomy and performed end-to-side anastomosis using 7-0 Prolene in running fashion in end-to-side manner. We gave more cardioplegia. We then id entified the mid LAD, made our arteriotomy, extended with Rosenberg scissors and anastomosed our BRANHAM us ing 7-0 Prolene in running fashion in end-to-side manner. At this time, we rewarmed the patient, gave warm blood, then removed the crossclamp, cardioverted to normal sinus rhythm. We placed a ventricular pacing wire. We then placed a partial clamp on the a scending aorta, made 3 aortotomies and anastomosed our right vein graft to the middle aortotomy usin g 5-0 Prolene in running fashion in end-to-side manner. The diagonal vein grafts were anastomosed t o the proximal aortotomy using 5-0 Prolene in running fashion in end-to-side manner. Then, the OM w as anastomosed to the distal aortotomy in the same fashion. Partial clamp was removed. Vein grafts were deaired. Distal hemostasis was achieved. We began ventilating the patient and then weaned her off cardiopulmonary bypass without difficulty. Protamine was started. We de-lined the patient. We placed a left pleural tube and an anterior med iastinal tube. Once hemostasis was achieved, we closed the chest using interrupted cables, followed by closure of the fascia using 0 Vicryl, followed by closure of skin using 4-0 Monocryl in subcutic ular fashion. Lower extremity incisions were closed using 3-0 Vicryl for the deep layer and 4-0 Mon ocryl for the skin. Dressings were applied. The patient was taken to the ICU in critical but stabl e condition. Dictated By: DEIDRE RAYMUNDO/JERSEY Conf#: [id number] DID#: [id number] CC: DEIDRE FUNK MD; KIRSTIN GERONIMO MD;*EndCC*
[2017-04-06] MEDS: POTASSIUM CHLORIDE 40 MEQ, CALCIUM CHLORIDE 10% 1 GM in DEXTROSE 5%-0.225% NACL 1,000 ML IV SCH ×2 (13:22→21:31)
[2017-04-06 13:25] LABS: ADD SCAN DIFF NO
[2017-04-06 13:28] LABS: BASOPHILS % 0.2 % (0.0-2.0); EOSINOPHILS # 0.1 10^3/ul (0.0-0.5); HEMOGLOBIN 9.5 g/dl (12.0-16.0); LYMPHOCYTES # 3.4 10^3/ul (0.8-2.9); LYMPHOCYTES % 28.2 % (15.0-51.0); MEAN CORPUSCULAR HEMOGLOBIN 29.7 pg (29.0-33.0); MEAN CORPUSCULAR HGB CONC 33.9 g/dl (32.0-37.0); MEAN CORPUSCULAR VOLUME 87.5 fl (82.0-101.0); MEAN PLATELET VOLUME 9.1 fl (7.4-10.4); MONOCYTE # 0.9 10^3/ul (0.3-0.9); MONOCYTES % 7.2 % (0.0-11.0); NEUTROPHIL # 7.6 10^3/ul (1.6-7.5); NEUTROPHILS % 63.1 % (39.0-77.0); PLATELET COUNT 103 10^3/UL (140-415)
[2017-04-06] MEDS: INSULIN HUMAN REGULAR 100 UNIT in SOD CHLORIDE 0.9% 99 ML IV SCH ×2 (13:29→20:29)
[2017-04-06] MEDS ORDERED: ALBUMIN HUMAN 5% 250 ML IV ONE ×2 (13:30→14:30)
[2017-04-06 13:43] LABS: INR 1.66; PROTIME 19.7 Sec (12.2-14.2); PT RATIO 1.5
[2017-04-06 13:44] LABS: PARTIAL THROMBOPLASTIN TIME 37.2 Sec (25.0-35.0)
[2017-04-06 13:45] LABS: CALCIUM 8.8 mg/dl (8.4-10.2); CREATININE 0.65 mg/dl (0.44-1.00); POTASSIUM 3.5 mmol/L (3.5-5.1)
[2017-04-06 14:04] LABS: MAGNESIUM 3.1 mg/dl (1.7-2.5); PHOSPHORUS 4.2 mg/dl (2.5-4.9)
[2017-04-06 14:05] LABS: MODE VENT - AC; MetHgb Mixed Venous 0.3 %; Mixed Venous COHb 0.3 %; Mixed Venous Fraction OxyHgb 63.8 %; Mixed Venous Oxygen Sat 64.2 mmHG (65.0-75.0); Mixed Venous Total Hemglobin 10.5 g/dl; Sample Type BLMV
[2017-04-06 14:05] LABS: AADO2 Arterial 265.7 mmHg (7.0-24.0); Arterial Base Excess -4.7 mmol/L (-3.0-3); Arterial COHb 0.2 % (0.0-3.0); Arterial HCO3 19.9 mmol/L (22.0-26.0); Arterial MetHb 0.4 % (0.0-1.5); Arterial Total Hemglobin 10.5 g/dl (12.0-18.0); MODE VENT - AC
[2017-04-06] MEDS: LEVOTHYROXINE 25 MCG TAB PO SCH (14:20)
[2017-04-06] MEDS: GABAPENTIN 100 MG CAP PO SCH ×2 (14:25→20:35)
[2017-04-06] MEDS: POTASSIUM CHLORIDE 50 ML IVPB PRN ×3 (15:10→17:49)
--- NOTE | 2017-04-06 15:17 | PN ---
Date/Time of Note Date/Time of Note DATE: 04/06/17 TIME: 15:15 Assessment/Plan VTE Prophylaxis VTE Prophylaxis Intervention: SCD's Lines/Catheters IV [facility] Central Line Central line still needed: Yes Urinary Cath still in place: Yes Reason Cath still needed: other (indicate) Assessment/Plan Chief Complaint/Hosp Course 1. Non-ST elevation myocardial infarction. The patient will be continued on aspirin. Status post left heart catheterization on 04/03/2017 that showed multivessel coronary artery disease. Patient was evaluated by cardiac surgery. Status post CABG x5, BRANHAM to LAD, SVG to PDA, SVG to obtuse marginal artery, SVG to diagonal artery #1, sequence to diagonal artery #2 on 04/06/2017. 2. Dyslipidemia. The patient will be continued on statins. 3. Type 2 diabetes mellitus. Hemoglobin A1c 7.7. The patient will be continued on premeal insulin and Lantus insulin along with sliding scale insulin. 4. Hypothyroidism. Continue Synthroid. 5. Essential hypertension. Continue antihypertensives. 6. Fluid, electrolytes and nutrition. N.p.o. 7. Deep venous thrombosis prophylaxis. Left lower extremity SCDs. 8. Gastrointestinal prophylaxis. Histamine 2 receptor blockers. PLAN: 1. Continue intensive care monitoring. 2. Weaning off vent as per cardiac surgery. The case was discussed with Dr. Fragoso. Critical care time: 40 minutes. Problems: Subjective 24 Hr Interval Summary Free Text/Dictation The patient is status post CABG 5 today. Exam/Review of Systems Vital Signs Vitals Vital Signs Date Time Temp Pulse Resp B/P Pulse Ox O2 Delivery O2 Flow Rate FiO2 04/06/17 14:00 105 20 105/74 100 04/06/17 13:30 99.5 04/04/17 04:40 4.0 04/03/17 12:42 Nasal Cannula Intake and Output 04/05/17 04/05/17 04/06/17 15:00 23:00 07:00 Intake Total 800 ml 600 ml Balance 800 ml 600 ml Exam GENERAL: This is a 71-year-old female patient lying in bed, no apparent distress. HEENT: Head normocephalic and atraumatic. Eyes: Anicteric sclerae. Conjunctivae clear. ENT: Nasal septum is midline. Oral mucosa is dry. Orally intubated and mechanically ventilated. NECK: Supple. No JVD noticed. Right IJ [place]-Juwan catheter. RESPIRATORY: Bilaterally diminished breath sounds. Bilateral rales heard. No use of accessory muscles of respiration. On mechanical ventilator. AC mode ventilation. CARDIAC: Regular rate and rhythm. S1 and S2 heard. Chest tubes to Pleur- evac. Draining sanguinous secretions. Dressing of her sternotomy incision. ABDOMEN: Soft, nontender and nondistended. Bowel sounds positive in all 4 quadrants. GENITOURINARY: Guzman catheter in place. EXTREMITIES: No cyanosis, no clubbing, no edema. Peripheral pulses palpable. Left radial A-line. Right leg dressing over the vein graft site. NEUROLOGIC: The patient is sedated. Results Result Diagram: 04/06/17 1320 04/06/17 1320 Results 24 hrs Laboratory Tests Test 04/05/17 17:29 04/05/17 21:14 04/06/17 02:38 04/06/17 07:13 Bedside Glucose 153 231 H 132 138 Test 04/06/17 12:23 04/06/17 12:44 04/06/17 13:20 04/06/17 13:27 Blood Gas Specimen Source Blood arterial Arterial Blood Date Drawn 04/06/2017 1:15:59 PM Arterial Blood pH (Temp corrected) 7.372 Arterial Blood pCO2 (Temp correct) 35.1 Arterial Blood pO2 (Temp corrected) 123.5 H Arterial Blood HCO3 19.9 L Arterial Blood Base Excess -4.7 L Arterial Blood Oxygen Saturation 97.6 Parmjit Test N/A Arterial Blood Gas Puncture Site A-Line Arterial Blood Carboxyhemoglobin 0.2 Arterial Blood Methemoglobin 0.4 Blood Gas A-a O2 Differential 265.7 H Oxyhemoglobin Percent 97.0 Total Hemoglobin 10.5 L Blood Gas Temperature 37.0 Blood Gas Respiration Rate 14.0 Blood Gas Actual Respiration Rate 14 Blood Gas Modality VENT - AC FiO2 60.0 Blood Gas Tidal Volume 600.0 Blood Gas Notified Whom TM Blood Gas Notified Time 04/06/2017 1:31:01 PM Bedside Glucose 137 124 White Blood Count 12.0 #H Red Blood Count 3.20 #L Hemoglobin 9.5 L Hematocrit 28.0 #L Mean Corpuscular Volume 87.5 Mean Corpuscular Hemoglobin 29.7 Mean Corpuscular Hemoglobin Concent 33.9 Red Cell Distribution Width 13.0 Platelet Count 103 #L Mean Platelet Volume 9.1 Neutrophils % 63.1 Lymphocytes % 28.2 Monocytes % 7.2 Eosinophils % 1.0 Basophils % 0.2 Nucleated Red Blood Cells % 0.0 Neutrophils # 7.6 H Lymphocytes # 3.4 H Monocytes # 0.9 Eosinophils # 0.1 Basophils # 0.0 Nucleated Red Blood Cells # 0.0 Prothrombin Time 19.7 #H Prothrombin Time Ratio 1.5 INR International Normalized Ratio 1.66 Activated Partial Thromboplast Time 37.2 H Sodium Level 147 H Potassium Level 3.5 Chloride Level 111 H Carbon Dioxide Level 24 Anion Gap 16 Blood Urea Nitrogen 15 Creatinine 0.65 Glucose Level 103 Calcium Level 8.8 Phosphorus Level 4.2 Magnesium Level 3.1 H Test 04/06/17 13:36 04/06/17 14:44 Blood Gas Specimen Source BLMV Arterial Blood Date Drawn 04/06/2017 1:20:27 PM Arterial Blood Gas Puncture Site OTHER Parmjit Test N/A Mixed Venous Blood pH 7.345 Mixed Venous Blood PCO2 44.5 Mixed Venous Blood PO2 37.5 Mixed Venous Blood HCO3 23.7 L Mixed Venous Blood Base Excess -2.0 Mixed Venous Blood O2 Saturation 64.2 L Mixed Venous Blood Total Hemoglobin 10.5 Mixed Venous Blood Oxyhemoglobin 63.8 Mixed Venous Bld Carboxyhemoglobin 0.3 Mixed Venous Blood Methemoglobin 0.3 Blood Gas A-a O2 Differential 341.4 Blood Gas Temperature 37.0 Blood Gas Respiration Rate 14.0 Blood Gas Actual Respiration Rate 14 Blood Gas Modality VENT - AC FiO2 60.0 Blood Gas Tidal Volume 500.0 Blood Gas High PEEP Setting 5.0 Blood Gas Critical Value Read Back Y NADIR RN Blood Gas Notified Whom TM Blood Gas Notified Time 04/06/2017 1:44:02 PM Bedside Glucose 117 Medications Medications Current Medications Gabapentin (Neurontin) 100 mg BID PO Last administered on 04/05/17 21:17; Admin Dose 100 MG; Start 03/31/17 at 21:00 Fish Oil (Fish Oil) 2,000 mg BID PO Last administered on 04/05/17 21:17; Admin Dose 2,000 MG; Start 03/31/17 at 21:00 Atorvastatin Calcium 40 mg 40 mg HS PO Last administered on 04/05/17 21:17; Admin Dose 40 MG; Start 03/31/17 at 21:00 Potassium Chloride 40 meq/ Calcium Chloride 1 gm/Dextrose/ Sodium Chloride 1, 030 ml @ 60 mls/hr [id number] IV Last administered on 04/06/17t 13:22; Admin Dose 60 MLS/HR; Start 04/06/17 at 12:23 Cefazolin Sodium (Ancef 1 Gm/50 ml (Pmx)) 50 ml @ 100 mls/hr Q8H IVPB ; Start 04/06/17 at 12:30; Stop 04/07/17 at 04:59 Hydromorphone HCl (Dilaudid) 0.2 mg Q15M PRN IV PAIN LEVEL 1-5; Start 04/06/17 at 12:30 Hydromorphone HCl (Dilaudid) 0.4 mg Q15M PRN IV PAIN LEVEL 6-10; Start at 12:30 Oxycodone/ Acetaminophen (Percocet (5/ 325)) 1 tab Q3H PRN PO PAIN LEVEL 1-5; Start 04/06/17 at 12:30 Oxycodone/ Acetaminophen (Percocet (5/ 325)) 2 tab Q3H PRN PO PAIN LEVEL 6-10; Start 04/06/17 at 12:30 Ondansetron HCl (Zofran Inj) 4 mg Q6H PRN IV NAUSEA AND/OR VOMITING; Start at 12:30 Famotidine (Pepcid Iv) 20 mg BID@08,20 IV ; Start 04/06/17 at 20:00 Aspirin (Aspirin) 325 mg DAILY PO ; Start 04/06/17 at 19:00 Acetaminophen (Tylenol Tab) 650 mg Q3H PRN PO ELEVATED TEMPERATURE; Start 04/06 at 12:30 Acetaminophen 650 mg 650 mg Q3H PRN [place] ELEVATED TEMPERATURE; Start 04/06/17 at 12:30 Magnesium Sulfate/ Dextrose (Magnesium Sulfate 1 Gm/D5W) 100 ml @ 100 mls/hr PRN PRN IVPB PENDING LAB VALUE; Start 04/06/17 at 12:30 Diagnostic Test (Pha) (Accu-Chek) 1 ea Q1H XX ; Start 04/06/17 at 12:30 Dextrose (D50w Syringe) 25 ml Q15M PRN IV Till BS 80 mg/dL or above x2; Start 04/06/17 at 12:30 Dextrose 50 ml 50 ml Q15M PRN IV Till BS 80 mg/dL or above x2; Start 04/06/17 at 12:30 Phenylephrine HCl 40 mg/Dextrose 500 ml @ 0 mls/hr TITRATE IV ; Start 04/06/17 at 19:00 Albumin Human 250 ml @ 250 mls/hr ONCE ONCE IV Last administered on t 14:24; Admin Dose 250 MLS/HR; Start 04/06/17 at 14:30; Stop 04/06/17 at 15: 29 SYLVAIN AGUILAR NP Apr 06, 2017 15:17
[2017-04-06] MEDS: CEFAZOLIN 1 GM/50 ML (PMX) 50 ML IVPB SCH ×2 (15:23→20:34)
[2017-04-06] MEDS: HYDROmorphONE 1 MG/ML SYG IV PRN ×2 (16:19→19:58)
[2017-04-06] MEDS ORDERED: PHENYLephrine 40 MG in DEXTROSE 5% 496 ML IV SCH (19:00)
[2017-04-06] MEDS: ASPIRIN 325 MG TAB PO SCH (19:00)
[2017-04-06] MEDS: FAMOTIDINE 20 MG INJ IV SCH (19:58)
[2017-04-06] MEDS: ALBUMIN HUMAN 5% 250 ML IV SCH ×4 (20:00→21:30)
[2017-04-06] MEDS: ATORVASTATIN 40 MG TAB PO SCH (20:35)
--- NOTE | 2017-04-06 20:42 | CONS ---
Date/Time of Note Date/Time of Note DATE: 04/06/17 TIME: 16:30 Assessment/Plan Assessment/Plan Additional Assessment/Plan NSTEMI, CAD s/p CABG X 5 Ischemic cardiomyopathy Hypertension Hyperlipidemia Diabetes Responds to commands Continue Vent support, wean when more awake Continue Phenylephrine Continue Chest tube Continue Insulin drip Replete mag and Potassium Continue GI and DVT Prophylaxis Consultation Date/Type/Reason Admit Date/Time Mar 31, 2017 at 17:02 Psychological: no complaints Social History Smoking Status: Never smoker Exam/Review of Systems Vital Signs Vitals Vital Signs Date Time Temp Pulse Resp B/P Pulse Ox O2 Delivery O2 Flow Rate FiO2 04/06/17 15:15 99 14 100 60 04/06/17 15:00 100.5 88/67 04/04/17 04:40 4.0 04/03/17 12:42 Nasal Cannula Intake and Output 04/05/17 04/05/17 04/06/17 15:00 23:00 07:00 Intake Total 800 ml 600 ml Balance 800 ml 600 ml Exam Constitutional: other (Intubated) Head: atraumatic, normocephalic Neck: non-tender, supple Respiratory: other (Mechanical breath sounds heard bilaterally) Cardiovascular: other (tachycardiac) Extremities: normal pulses Results Result Diagram: 04/06/17 1320 04/06/17 1320 Results 24 hrs Laboratory Tests Test 04/05/17 17:29 04/05/17 21:14 04/06/17 02:38 04/06/17 07:13 Bedside Glucose 153 231 H 132 138 Test 04/06/17 12:23 04/06/17 12:44 04/06/17 13:20 04/06/17 13:27 Blood Gas Specimen Source Blood arterial Arterial Blood Date Drawn 04/06/2017 1:15:59 PM Arterial Blood pH (Temp corrected) 7.372 Arterial Blood pCO2 (Temp correct) 35.1 Arterial Blood pO2 (Temp corrected) 123.5 H Arterial Blood HCO3 19.9 L Arterial Blood Base Excess -4.7 L Arterial Blood Oxygen Saturation 97.6 Parmjit Test N/A Arterial Blood Gas Puncture Site A-Line Arterial Blood Carboxyhemoglobin 0.2 Arterial Blood Methemoglobin 0.4 Blood Gas A-a O2 Differential 265.7 H Oxyhemoglobin Percent 97.0 Total Hemoglobin 10.5 L Blood Gas Temperature 37.0 Blood Gas Respiration Rate 14.0 Blood Gas Actual Respiration Rate 14 Blood Gas Modality VENT - AC FiO2 60.0 Blood Gas Tidal Volume 600.0 Blood Gas Notified Whom TM Blood Gas Notified Time 04/06/2017 1:31:01 PM Bedside Glucose 137 124 White Blood Count 12.0 #H Red Blood Count 3.20 #L Hemoglobin 9.5 L Hematocrit 28.0 #L Mean Corpuscular Volume 87.5 Mean Corpuscular Hemoglobin 29.7 Mean Corpuscular Hemoglobin Concent 33.9 Red Cell Distribution Width 13.0 Platelet Count 103 #L Mean Platelet Volume 9.1 Neutrophils % 63.1 Lymphocytes % 28.2 Monocytes % 7.2 Eosinophils % 1.0 Basophils % 0.2 Nucleated Red Blood Cells % 0.0 Neutrophils # 7.6 H Lymphocytes # 3.4 H Monocytes # 0.9 Eosinophils # 0.1 Basophils # 0.0 Nucleated Red Blood Cells # 0.0 Prothrombin Time 19.7 #H Prothrombin Time Ratio 1.5 INR International Normalized Ratio 1.66 Activated Partial Thromboplast Time 37.2 H Sodium Level 147 H Potassium Level 3.5 Chloride Level 111 H Carbon Dioxide Level 24 Anion Gap 16 Blood Urea Nitrogen 15 Creatinine 0.65 Glucose Level 103 Calcium Level 8.8 Phosphorus Level 4.2 Magnesium Level 3.1 H Test 04/06/17 13:36 04/06/17 14:44 Blood Gas Specimen Source BLMV Arterial Blood Date Drawn 04/06/2017 1:20:27 PM Arterial Blood Gas Puncture Site OTHER Parmjit Test N/A Mixed Venous Blood pH 7.345 Mixed Venous Blood PCO2 44.5 Mixed Venous Blood PO2 37.5 Mixed Venous Blood HCO3 23.7 L Mixed Venous Blood Base Excess -2.0 Mixed Venous Blood O2 Saturation 64.2 L Mixed Venous Blood Total Hemoglobin 10.5 Mixed Venous Blood Oxyhemoglobin 63.8 Mixed Venous Bld Carboxyhemoglobin 0.3 Mixed Venous Blood Methemoglobin 0.3 Blood Gas A-a O2 Differential 341.4 Blood Gas Temperature 37.0 Blood Gas Respiration Rate 14.0 Blood Gas Actual Respiration Rate 14 Blood Gas Modality VENT - AC FiO2 60.0 Blood Gas Tidal Volume 500.0 Blood Gas High PEEP Setting 5.0 Blood Gas Critical Value Read Back Y NADIR RN Blood Gas Notified Whom TM Blood Gas Notified Time 04/06/2017 1:44:02 PM Bedside Glucose 117 Medications Medications Current Medications Gabapentin (Neurontin) 100 mg BID PO Last administered on 04/05/17 21:17; Admin Dose 100 MG; Start 03/31/17 at 21:00 Fish Oil (Fish Oil) 2,000 mg BID PO Last administered on 04/05/17 21:17; Admin Dose 2,000 MG; Start 03/31/17 at 21:00 Atorvastatin Calcium 40 mg 40 mg HS PO Last administered on 04/05/17 21:17; Admin Dose 40 MG; Start 03/31/17 at 21:00 Potassium Chloride 40 meq/ Calcium Chloride 1 gm/Dextrose/ Sodium Chloride 1, 030 ml @ 60 mls/hr [id number] IV Last administered on 04/06/17 13:22; Admin Dose 60 MLS/HR; Start 04/06/17 at 12:23 Cefazolin Sodium (Ancef 1 Gm/50 ml (Pmx)) 50 ml @ 100 mls/hr Q8H IVPB Last administered on 04/06/17 15:23; Admin Dose 100 MLS/HR; Start 04/06/17 at 12:30 ; Stop 04/07/17 at 04:59 Hydromorphone HCl (Dilaudid) 0.2 mg Q15M PRN IV PAIN LEVEL 1-5 Last administered on 04/06/17 16:19; Admin Dose 0.2 MG; Start 04/06/17 at 12:30 Hydromorphone HCl (Dilaudid) 0.4 mg Q15M PRN IV PAIN LEVEL 6-10; Start at 12:30 Oxycodone/ Acetaminophen (Percocet (5/ 325)) 1 tab Q3H PRN PO PAIN LEVEL 1-5; Start 04/06/17 at 12:30 Oxycodone/ Acetaminophen (Percocet (5/ 325)) 2 tab Q3H PRN PO PAIN LEVEL 6-10; Start 04/06/17 at 12:30 Ondansetron HCl (Zofran Inj) 4 mg Q6H PRN IV NAUSEA AND/OR VOMITING; Start at 12:30 Famotidine (Pepcid Iv) 20 mg BID@08,20 IV ; Start 04/06/17 at 20:00 Aspirin (Aspirin) 325 mg DAILY PO ; Start 04/06/17 at 19:00 Acetaminophen (Tylenol Tab) 650 mg Q3H PRN PO ELEVATED TEMPERATURE; Start 04/06 at 12:30 Acetaminophen 650 mg 650 mg Q3H PRN [place] ELEVATED TEMPERATURE; Start 04/06/17 at 12:30 Magnesium Sulfate/ Dextrose (Magnesium Sulfate 1 Gm/D5W) 100 ml @ 100 mls/hr PRN PRN IVPB PENDING LAB VALUE; Start 04/06/17 at 12:30 Diagnostic Test (Pha) (Accu-Chek) 1 ea Q1H XX ; Start 04/06/17 at 12:30 Dextrose (D50w Syringe) 25 ml Q15M PRN IV Till BS 80 mg/dL or above x2; Start 04/06/17 at 12:30 Dextrose 50 ml 50 ml Q15M PRN IV Till BS 80 mg/dL or above x2; Start 04/06/17 at 12:30 Phenylephrine HCl/ Dextrose (Corbin-Syneph/D5W) 500 ml @ 0 mls/hr TITRATE IV ; Start 04/06/17 at 19:00 TERA GODOY M.D. Apr 06, 2017 16:34
[2017-04-06 23:44] LABS: CALCIUM 8.5 mg/dl (8.4-10.2); CREATININE 0.7 mg/dl (0.44-1.00); POTASSIUM 4.4 mmol/L (3.5-5.1)
[2017-04-07] VITALS (58 sets, daily range): BP systolic 84–134; BP diastolic 41–82; PULSE 84–96; RESP 8–24; TEMP 99.4–100.6
[2017-04-07] MEDS: ACCU-CHEK XX SCH ×24 (00:09→23:42)
[2017-04-07] MEDS: POTASSIUM CHLORIDE 50 ML IVPB PRN (00:30)
[2017-04-07] MEDS: HYDROmorphONE 1 MG/ML SYG IV PRN ×2 (02:06→23:52)
[2017-04-07] MEDS: CEFAZOLIN 1 GM/50 ML (PMX) 50 ML IVPB SCH (04:18)
[2017-04-07 04:57] LABS: AADO2 Arterial 45.4 mmHg (7.0-24.0); Arterial COHb 0.3 % (0.0-3.0); Arterial Fraction of Oxyhgb 96.3 % (93.0-99.0); Arterial HCO3 22.6 mmol/L (22.0-26.0); Arterial MetHb 0.4 % (0.0-1.5); Arterial Total Hemglobin 8.5 g/dl (12.0-18.0); MODE NASAL CANNULA
[2017-04-07 05:03] LABS: ADD SCAN DIFF NO
[2017-04-07 05:13] LABS: BASOPHILS % 0.4 % (0.0-2.0); EOSINOPHILS % 0.4 % (0.0-7.0); HEMATOCRIT 23.6 % (37.0-47.0); HEMOGLOBIN 7.6 g/dl (12.0-16.0); LYMPHOCYTES # 1.6 10^3/ul (0.8-2.9); LYMPHOCYTES % 14.9 % (15.0-51.0); MEAN CORPUSCULAR HGB CONC 32.2 g/dl (32.0-37.0); MEAN CORPUSCULAR VOLUME 90.1 fl (82.0-101.0); MEAN PLATELET VOLUME 10.5 fl (7.4-10.4); MONOCYTE # 1.2 10^3/ul (0.3-0.9); NEUTROPHIL # 7.8 10^3/ul (1.6-7.5); NEUTROPHILS % 72.8 % (39.0-77.0); PLATELET COUNT 105 10^3/UL (140-415); RED BLOOD COUNT 2.62 10^6/ul (4.20-5.40); RED CELL DISTRIBUTION WIDTH 13.4 % (11.5-14.5); WHITE BLOOD COUNT 10.6 10^3/ul (4.8-10.8)
[2017-04-07 05:27] LABS: INR 1.29; PROTIME 16.2 Sec (12.2-14.2); PT RATIO 1.3
[2017-04-07 05:51] LABS: ALBUMIN 4.5 g/dl (3.3-4.9); ALBUMIN/GLOBULIN RATIO 2.64; CALCIUM 8.7 mg/dl (8.4-10.2); CREATININE 0.65 mg/dl (0.44-1.00); TOTAL PROTEIN 6.2 g/dl (6.1-8.1)
[2017-04-07] MEDS: LEVOTHYROXINE 25 MCG TAB PO SCH (06:32)
--- NOTE | 2017-04-07 07:06 | PN ---
Date/Time of Note Date/Time of Note DATE: 04/07/17 TIME: 07:05 Assessment/Plan Lines/Catheters IV Catheter Type (from Nrsg): A Line Bowers in Place (from Nrsg): Yes Assessment/Plan Assessment/Plan doing well, HD stable wean yany off remove swan, christel and bowers beta delia when off pressor OOB to chair Asa and lipitor IV iron hold on transfusion Exam/Review of Systems Vital Signs Vitals Vital Signs Date Time Temp Pulse Resp B/P Pulse Ox O2 Delivery O2 Flow Rate FiO2 04/07/17 06:25 100.6 88 18 121/56 99 04/06/17 20:01 2.0 04/06/17 17:15 40 04/03/17 12:42 Nasal Cannula Intake and Output 04/06/17 04/06/17 04/07/17 15:00 23:00 07:00 Intake Total 1629.0 ml 1494.0 ml 711.5 ml Output Total 3300 ml 713 ml 383 ml Balance -1671.0 ml 781.0 ml 328.5 ml Results Result Diagram: 04/07/17 0430 04/07/17 0430 DEIDRE FUNK MD Apr 07, 2017 07:06
[2017-04-07] MEDS: OXYCODONE/ACETAMINOPHEN (5/325) TAB PO PRN ×3 (08:08→20:13)
[2017-04-07] MEDS: FAMOTIDINE 20 MG INJ IV SCH ×2 (08:41→20:32)
[2017-04-07] MEDS: FISH OIL 1,000 MG CAP PO SCH ×2 (08:41→21:29)
[2017-04-07] MEDS: ASPIRIN 325 MG TAB PO SCH (08:41)
[2017-04-07] MEDS: GABAPENTIN 100 MG CAP PO SCH ×2 (08:41→21:29)
[2017-04-07 08:52] LABS: HEMATOCRIT 23.8 % (37.0-47.0); HEMOGLOBIN 7.7 g/dl (12.0-16.0)
--- NOTE | 2017-04-07 09:10 | PN ---
Date/Time of Note Date/Time of Note DATE: 04/07/17 TIME: 09:07 Assessment/Plan VTE Prophylaxis VTE Prophylaxis Intervention: SCD's Lines/Catheters IV Catheter Type (from [facility]): A Line Urinary Cath still in place: Yes Reason Cath still needed: other (indicate) Assessment/Plan Chief Complaint/Hosp Course 1. Non-ST elevation myocardial infarction. The patient will be continued on aspirin. Status post left heart catheterization on 04/03/2017 that showed multivessel coronary artery disease. Patient was evaluated by cardiac surgery. Status post CABG x5, BRANHAM to LAD, SVG to PDA, SVG to obtuse marginal artery, SVG to diagonal artery #1, sequence to diagonal artery #2 on 04/06/2017. 2. Dyslipidemia. The patient will be continued on statins. 3. Type 2 diabetes mellitus. Hemoglobin A1c 7.7. The patient will be continued on premeal insulin and Lantus insulin along with sliding scale insulin. 4. Hypothyroidism. Continue Synthroid. 5. Essential hypertension. Continue antihypertensives. 6. Normocytic, normochromic anemia. Patient was started on IV iron supplements by cardiac surgery. 7. Fluid, electrolytes and nutrition. Carbohydrate controlled, low- cholesterol diet. 8. Deep venous thrombosis prophylaxis. Left lower extremity SCDs. 9. Gastrointestinal prophylaxis. Histamine 2 receptor blockers. PLAN: 1. Continue intensive care monitoring. 2. Patient was extubated. Out of bed today. The case was discussed with Dr. Fragoso. Critical care time: 35 minutes. Problems: Exam/Review of Systems Vital Signs Vitals Vital Signs Date Time Temp Pulse Resp B/P Pulse Ox O2 Delivery O2 Flow Rate FiO2 04/07/17 08:57 86 04/07/17 06:25 100.6 18 121/56 99 04/06/17 20:01 2.0 04/06/17 17:15 40 04/03/17 12:42 Nasal Cannula Intake and Output 04/06/17 04/06/17 04/07/17 15:00 23:00 07:00 Intake Total 1629.0 ml 1494.0 ml 711.5 ml Output Total 3300 ml 713 ml 383 ml Balance -1671.0 ml 781.0 ml 328.5 ml Exam GENERAL: This is a 71-year-old female patient lying in bed, no apparent distress. HEENT: Head normocephalic and atraumatic. Eyes: Anicteric sclerae. Conjunctivae clear. ENT: Nasal septum is midline. Oral mucosa is dry. . NECK: Supple. No JVD noticed. Right IJ cordis in place. RESPIRATORY: Bilaterally diminished breath sounds. Bilateral diminished breath sounds. No use of accessory muscles of respiration. CARDIAC: Regular rate and rhythm. S1 and S2 heard. Chest tubes to Pleur- evac. Draining sanguinous secretions. Dressing over sternotomy incision. ABDOMEN: Soft, nontender and nondistended. Bowel sounds positive in all 4 quadrants. GENITOURINARY: Guzman catheter in place. EXTREMITIES: No cyanosis, no clubbing, no edema. Peripheral pulses palpable. Right leg dressing over the vein graft site. NEUROLOGIC: The patient is awake, alert, and oriented. Results Result Diagram: 04/07/17 0817 04/07/17 0430 Results 24 hrs Laboratory Tests Test 04/06/17 12:23 04/06/17 12:44 04/06/17 13:20 04/06/17 13:27 Blood Gas Specimen Source Blood arterial Arterial Blood Date Drawn 04/06/2017 1:15:59 PM Arterial Blood pH (Temp corrected) 7.372 Arterial Blood pCO2 (Temp correct) 35.1 Arterial Blood pO2 (Temp corrected) 123.5 H Arterial Blood HCO3 19.9 L Arterial Blood Base Excess -4.7 L Arterial Blood Oxygen Saturation 97.6 Parmjit Test N/A Arterial Blood Gas Puncture Site A-Line Arterial Blood Carboxyhemoglobin 0.2 Arterial Blood Methemoglobin 0.4 Blood Gas A-a O2 Differential 265.7 H Oxyhemoglobin Percent 97.0 Total Hemoglobin 10.5 L Blood Gas Temperature 37.0 Blood Gas Respiration Rate 14.0 Blood Gas Actual Respiration Rate 14 Blood Gas Modality VENT - AC FiO2 60.0 Blood Gas Tidal Volume 600.0 Blood Gas Notified Whom TM Blood Gas Notified Time 04/06/2017 1:31:01 PM Bedside Glucose 137 124 White Blood Count 12.0 #H Red Blood Count 3.20 #L Hemoglobin 9.5 L Hematocrit 28.0 #L Mean Corpuscular Volume 87.5 Mean Corpuscular Hemoglobin 29.7 Mean Corpuscular Hemoglobin Concent 33.9 Red Cell Distribution Width 13.0 Platelet Count 103 #L Mean Platelet Volume 9.1 Neutrophils % 63.1 Lymphocytes % 28.2 Monocytes % 7.2 Eosinophils % 1.0 Basophils % 0.2 Nucleated Red Blood Cells % 0.0 Neutrophils # 7.6 H Lymphocytes # 3.4 H Monocytes # 0.9 Eosinophils # 0.1 Basophils # 0.0 Nucleated Red Blood Cells # 0.0 Prothrombin Time 19.7 #H Prothrombin Time Ratio 1.5 INR International Normalized Ratio 1.66 Activated Partial Thromboplast Time 37.2 H Sodium Level 147 H Potassium Level 3.5 Chloride Level 111 H Carbon Dioxide Level 24 Anion Gap 16 Blood Urea Nitrogen 15 Creatinine 0.65 Glucose Level 103 Calcium Level 8.8 Phosphorus Level 4.2 Magnesium Level 3.1 H Test 04/06/17 13:36 04/06/17 14:44 04/06/17 20:24 04/06/17 21:38 Blood Gas Specimen Source BLMV Arterial Blood Date Drawn 04/06/2017 1:20:27 PM Arterial Blood Gas Puncture Site OTHER Parmjit Test N/A Mixed Venous Blood pH 7.345 Mixed Venous Blood PCO2 44.5 Mixed Venous Blood PO2 37.5 Mixed Venous Blood HCO3 23.7 L Mixed Venous Blood Base Excess -2.0 Mixed Venous Blood O2 Saturation 64.2 L Mixed Venous Blood Total Hemoglobin 10.5 Mixed Venous Blood Oxyhemoglobin 63.8 Mixed Venous Bld Carboxyhemoglobin 0.3 Mixed Venous Blood Methemoglobin 0.3 Blood Gas A-a O2 Differential 341.4 Blood Gas Temperature 37.0 Blood Gas Respiration Rate 14.0 Blood Gas Actual Respiration Rate 14 Blood Gas Modality VENT - AC FiO2 60.0 Blood Gas Tidal Volume 500.0 Blood Gas High PEEP Setting 5.0 Blood Gas Critical Value Read Back Y NADIR RN Blood Gas Notified Whom TM Blood Gas Notified Time 04/06/2017 1:44:02 PM Bedside Glucose 117 186 154 Test 04/06/17 22:45 04/06/17 23:40 04/07/17 01:13 04/07/17 03:30 Sodium Level 141 Potassium Level 4.4 Chloride Level 109 Carbon Dioxide Level 26 Anion Gap 10 # Blood Urea Nitrogen 14 Creatinine 0.70 Glucose Level 149 # Calcium Level 8.5 Magnesium Level 2.1 # Bedside Glucose 165 169 143 Test 04/07/17 04:30 04/07/17 05:00 04/07/17 05:36 04/07/17 07:01 White Blood Count 10.6 Red Blood Count 2.62 L Hemoglobin 7.6 L Hematocrit 23.6 L Mean Corpuscular Volume 90.1 Mean Corpuscular Hemoglobin 29.0 Mean Corpuscular Hemoglobin Concent 32.2 Red Cell Distribution Width 13.4 Platelet Count 105 L Mean Platelet Volume 10.5 H Neutrophils % 72.8 Lymphocytes % 14.9 L Monocytes % 11.0 Eosinophils % 0.4 Basophils % 0.4 Nucleated Red Blood Cells % 0.0 Neutrophils # 7.8 H Lymphocytes # 1.6 Monocytes # 1.2 H Eosinophils # 0.0 Basophils # 0.0 Nucleated Red Blood Cells # 0.0 Prothrombin Time 16.2 H Prothrombin Time Ratio 1.3 INR International Normalized Ratio 1.29 Activated Partial Thromboplast Time 40.0 H Sodium Level 140 Potassium Level 5.0 Chloride Level 108 Carbon Dioxide Level 23 Anion Gap 14 Blood Urea Nitrogen 14 Creatinine 0.65 Glucose Level 145 Calcium Level 8.7 Phosphorus Level 4.3 Magnesium Level 2.0 Total Bilirubin 1.0 Direct Bilirubin 0.00 Indirect Bilirubin 1.0 Aspartate Amino Transf (AST/SGOT) 167 H Alanine Aminotransferase (ALT/SGPT) 46 Alkaline Phosphatase 22 L Total Protein 6.2 Albumin 4.5 Globulin 1.70 Albumin/Globulin Ratio 2.64 Blood Gas Specimen Source Blood arterial Arterial Blood Date Drawn 04/07/2017 4:45:38 AM Arterial Blood pH (Temp corrected) 7.394 Arterial Blood pCO2 (Temp correct) 37.9 Arterial Blood pO2 (Temp corrected) 102.3 H Arterial Blood HCO3 22.6 Arterial Blood Base Excess -2.0 Arterial Blood Oxygen Saturation 97.0 Parmjit Test N/A Arterial Blood Gas Puncture Site A-Line Arterial Blood Carboxyhemoglobin 0.3 Arterial Blood Methemoglobin 0.4 Blood Gas A-a O2 Differential 45.4 H Oxyhemoglobin Percent 96.3 Total Hemoglobin 8.5 L Blood Gas Temperature 37.0 Blood Gas Modality NASAL CANNULA FiO2 27.0 Blood Gas Critical Value Read Back Deloris MARSHALL R.N Blood Gas Notified Whom MM Blood Gas Notified Time 04/07/2017 4:56:48 AM Bedside Glucose 141 171 Test 04/07/17 08:17 Hemoglobin 7.7 L Hematocrit 23.8 L Bedside Glucose 178 Medications Medications Current Medications Gabapentin (Neurontin) 100 mg BID PO Last administered on 04/07/17t 08:41; Admin Dose 100 MG; Start 03/31/17 at 21:00 Fish Oil (Fish Oil) 2,000 mg BID PO Last administered on 04/07/17 08:41; Admin Dose 2,000 MG; Start 03/31/17 at 21:00 Atorvastatin Calcium 40 mg 40 mg HS PO Last administered on 04/05/17 21:17; Admin Dose 40 MG; Start 03/31/17 at 21:00 Potassium Chloride/Calcium Chloride/Dextrose/ Sodium Chloride (KCl/Ca Chloride/ D5-1/4ns) 1,030 ml @ 60 mls/hr [id number] IV Last administered on 04/06/17 21:31 ; Admin Dose 60 MLS/HR; Start 04/06/17 at 12:23 Hydromorphone HCl (Dilaudid) 0.2 mg Q15M PRN IV PAIN LEVEL 1-5 Last administered on 04/07/17 02:06; Admin Dose 0.2 MG; Start 04/06/17 at 12:30 Hydromorphone HCl (Dilaudid) 0.4 mg Q15M PRN IV PAIN LEVEL 6-10 Last administered on 04/06/17 19:58; Admin Dose 0.4 MG; Start 04/06/17 at 12:30 Oxycodone/ Acetaminophen (Percocet (5/ 325)) 1 tab Q3H PRN PO PAIN LEVEL 1-5 Last administered on 04/07/17 08:08; Admin Dose 1 TAB; Start 04/06/17 at 12:30 Oxycodone/ Acetaminophen (Percocet (5/ 325)) 2 tab Q3H PRN PO PAIN LEVEL 6-10; Start 04/06/17 at 12:30 Ondansetron HCl (Zofran Inj) 4 mg Q6H PRN IV NAUSEA AND/OR VOMITING; Start at 12:30 Famotidine (Pepcid Iv) 20 mg BID@08,20 IV Last administered on 04/07/17 08:41 ; Admin Dose 20 MG; Start 04/06/17 at 20:00 Aspirin (Aspirin) 325 mg DAILY PO Last administered on 04/07/17 08:41; Admin Dose 325 MG; Start 04/06/17 at 19:00 Acetaminophen (Tylenol Tab) 650 mg Q3H PRN PO ELEVATED TEMPERATURE; Start 04/06 at 12:30 Acetaminophen 650 mg 650 mg Q3H PRN DC ELEVATED TEMPERATURE Last administered on 04/06/17 17:47; Admin Dose 650 MG; Start 04/06/17 at 12:30 Magnesium Sulfate/ Dextrose (Magnesium Sulfate 1 Gm/D5W) 100 ml @ 100 mls/hr PRN PRN IVPB PENDING LAB VALUE; Start 04/06/17 at 12:30 Diagnostic Test (Pha) (Accu-Chek) 1 ea Q1H XX Last administered on 04/07/17 08 :18; Admin Dose 1 EA; Start 04/06/17 at 12:30 Dextrose (D50w Syringe) 25 ml Q15M PRN IV Till BS 80 mg/dL or above x2; Start 04/06/17 at 12:30 Dextrose 50 ml 50 ml Q15M PRN IV Till BS 80 mg/dL or above x2; Start 04/06/17 at 12:30 Phenylephrine HCl 40 mg/Dextrose 500 ml @ 0 mls/hr TITRATE IV Last administered on 04/06/17 21:02; Admin Dose 29.49 MLS/HR; Start 04/06/17 at 19: 00 Ferric Sodium Gluconate Complex/ Sodium Chloride (Ferrlecit/NS) 110 ml @ 110 mls/hr Q24H IVPB ; Start 04/07/17 at 10:00; Stop 04/11/17 at 10:59 SYLVAIN AGUILAR NP Apr 07, 2017 09:10
[2017-04-07] MEDS: SOD FERRIC GLUC COMPLX 125 MG in SOD CHLORIDE 0.9% 100 ML IVPB SCH (09:45)
--- NOTE | 2017-04-07 12:20 | CONS ---
Date/Time of Note Date/Time of Note DATE: 04/07/17 TIME: 12:18 Assessment/Plan Assessment/Plan Additional Assessment/Plan NSTEMI, CAD s/p CABG X 5 Ischemic cardiomyopathy Hypertension Hyperlipidemia Diabetes Extubated last night Clinically doing well Hemodynamically stable Wean off Phenylephrine Continue Chest tube Continue ASA Continue Levothyroxine Continue Insulin drip Continue GI and DVT Prophylaxis Consultation Date/Type/Reason Admit Date/Time Mar 31, 2017 at 17:02 Initial Consult Date Type of Consultation: Cardiology Referring Provider: CATHY SANTANA Exam/Review of Systems Vital Signs Vitals Vital Signs Date Time Temp Pulse Resp B/P Pulse Ox O2 Delivery O2 Flow Rate FiO2 04/07/17 12:00 90 18 119/58 96 Nasal Cannula 2.0 04/07/17 10:00 99.0 04/06/17 17:15 40 Intake and Output 04/06/17 04/06/17 04/07/17 15:00 23:00 07:00 Intake Total 1629.0 ml 1494.0 ml 796.0 ml Output Total 3300 ml 713 ml 410 ml Balance -1671.0 ml 781.0 ml 386.0 ml Exam Constitutional: alert, oriented Psych: no complaints Head: atraumatic, normocephalic Respiratory: diminished breath sounds Cardiovascular: regular rate and rhythm Gastrointestinal: nl liver, spleen, non-tender, soft Extremities: normal pulses Results Result Diagram: 04/07/17 0817 04/07/17 0430 Results 24 hrs Laboratory Tests Test 04/06/17 12:23 04/06/17 12:44 04/06/17 13:20 04/06/17 13:27 Blood Gas Specimen Source Blood arterial Arterial Blood Date Drawn 04/06/2017 1:15:59 PM Arterial Blood pH (Temp corrected) 7.372 Arterial Blood pCO2 (Temp correct) 35.1 Arterial Blood pO2 (Temp corrected) 123.5 H Arterial Blood HCO3 19.9 L Arterial Blood Base Excess -4.7 L Arterial Blood Oxygen Saturation 97.6 Parmjit Test N/A Arterial Blood Gas Puncture Site A-Line Arterial Blood Carboxyhemoglobin 0.2 Arterial Blood Methemoglobin 0.4 Blood Gas A-a O2 Differential 265.7 H Oxyhemoglobin Percent 97.0 Total Hemoglobin 10.5 L Blood Gas Temperature 37.0 Blood Gas Respiration Rate 14.0 Blood Gas Actual Respiration Rate 14 Blood Gas Modality VENT - AC FiO2 60.0 Blood Gas Tidal Volume 600.0 Blood Gas Notified Whom TM Blood Gas Notified Time 04/06/2017 1:31:01 PM Bedside Glucose 137 124 White Blood Count 12.0 #H Red Blood Count 3.20 #L Hemoglobin 9.5 L Hematocrit 28.0 #L Mean Corpuscular Volume 87.5 Mean Corpuscular Hemoglobin 29.7 Mean Corpuscular Hemoglobin Concent 33.9 Red Cell Distribution Width 13.0 Platelet Count 103 #L Mean Platelet Volume 9.1 Neutrophils % 63.1 Lymphocytes % 28.2 Monocytes % 7.2 Eosinophils % 1.0 Basophils % 0.2 Nucleated Red Blood Cells % 0.0 Neutrophils # 7.6 H Lymphocytes # 3.4 H Monocytes # 0.9 Eosinophils # 0.1 Basophils # 0.0 Nucleated Red Blood Cells # 0.0 Prothrombin Time 19.7 #H Prothrombin Time Ratio 1.5 INR International Normalized Ratio 1.66 Activated Partial Thromboplast Time 37.2 H Sodium Level 147 H Potassium Level 3.5 Chloride Level 111 H Carbon Dioxide Level 24 Anion Gap 16 Blood Urea Nitrogen 15 Creatinine 0.65 Glucose Level 103 Calcium Level 8.8 Phosphorus Level 4.2 Magnesium Level 3.1 H Test 04/06/17 13:36 04/06/17 14:44 04/06/17 20:24 04/06/17 21:38 Blood Gas Specimen Source BLM Arterial Blood Date Drawn 04/06/2017 1:20:27 PM Arterial Blood Gas Puncture Site OTHER Parmjit Test N/A Mixed Venous Blood pH 7.345 Mixed Venous Blood PCO2 44.5 Mixed Venous Blood PO2 37.5 Mixed Venous Blood HCO3 23.7 L Mixed Venous Blood Base Excess -2.0 Mixed Venous Blood O2 Saturation 64.2 L Mixed Venous Blood Total Hemoglobin 10.5 Mixed Venous Blood Oxyhemoglobin 63.8 Mixed Venous Bld Carboxyhemoglobin 0.3 Mixed Venous Blood Methemoglobin 0.3 Blood Gas A-a O2 Differential 341.4 Blood Gas Temperature 37.0 Blood Gas Respiration Rate 14.0 Blood Gas Actual Respiration Rate 14 Blood Gas Modality VENT - AC FiO2 60.0 Blood Gas Tidal Volume 500.0 Blood Gas High PEEP Setting 5.0 Blood Gas Critical Value Read Back Y NADIR RN Blood Gas Notified Whom TM Blood Gas Notified Time 04/06/2017 1:44:02 PM Bedside Glucose 117 186 154 Test 04/06/17 22:45 04/06/17 23:40 04/07/17 01:13 04/07/17 03:30 Sodium Level 141 Potassium Level 4.4 Chloride Level 109 Carbon Dioxide Level 26 Anion Gap 10 # Blood Urea Nitrogen 14 Creatinine 0.70 Glucose Level 149 # Calcium Level 8.5 Magnesium Level 2.1 # Bedside Glucose 165 169 143 Test 04/07/17 04:30 04/07/17 05:00 04/07/17 05:36 04/07/17 07:01 White Blood Count 10.6 Red Blood Count 2.62 L Hemoglobin 7.6 L Hematocrit 23.6 L Mean Corpuscular Volume 90.1 Mean Corpuscular Hemoglobin 29.0 Mean Corpuscular Hemoglobin Concent 32.2 Red Cell Distribution Width 13.4 Platelet Count 105 L Mean Platelet Volume 10.5 H Neutrophils % 72.8 Lymphocytes % 14.9 L Monocytes % 11.0 Eosinophils % 0.4 Basophils % 0.4 Nucleated Red Blood Cells % 0.0 Neutrophils # 7.8 H Lymphocytes # 1.6 Monocytes # 1.2 H Eosinophils # 0.0 Basophils # 0.0 Nucleated Red Blood Cells # 0.0 Prothrombin Time 16.2 H Prothrombin Time Ratio 1.3 INR International Normalized Ratio 1.29 Activated Partial Thromboplast Time 40.0 H Sodium Level 140 Potassium Level 5.0 Chloride Level 108 Carbon Dioxide Level 23 Anion Gap 14 Blood Urea Nitrogen 14 Creatinine 0.65 Glucose Level 145 Calcium Level 8.7 Phosphorus Level 4.3 Magnesium Level 2.0 Total Bilirubin 1.0 Direct Bilirubin 0.00 Indirect Bilirubin 1.0 Aspartate Amino Transf (AST/SGOT) 167 H Alanine Aminotransferase (ALT/SGPT) 46 Alkaline Phosphatase 22 L Total Protein 6.2 Albumin 4.5 Globulin 1.70 Albumin/Globulin Ratio 2.64 Blood Gas Specimen Source Blood arterial Arterial Blood Date Drawn 04/07/2017 4:45:38 AM Arterial Blood pH (Temp corrected) 7.394 Arterial Blood pCO2 (Temp correct) 37.9 Arterial Blood pO2 (Temp corrected) 102.3 H Arterial Blood HCO3 22.6 Arterial Blood Base Excess -2.0 Arterial Blood Oxygen Saturation 97.0 Parmjit Test N/A Arterial Blood Gas Puncture Site A-Line Arterial Blood Carboxyhemoglobin 0.3 Arterial Blood Methemoglobin 0.4 Blood Gas A-a O2 Differential 45.4 H Oxyhemoglobin Percent 96.3 Total Hemoglobin 8.5 L Blood Gas Temperature 37.0 Blood Gas Modality NASAL CANNULA FiO2 27.0 Blood Gas Critical Value Read Back Deloris MARSHALL R.N Blood Gas Notified Whom MM Blood Gas Notified Time 04/07/2017 4:56:48 AM Bedside Glucose 141 171 Test 04/07/17 08:17 04/07/17 09:40 04/07/17 10:47 04/07/17 11:47 Hemoglobin 7.7 L Hematocrit 23.8 L Bedside Glucose 178 224 H 231 H 223 H Medications Medications Current Medications Gabapentin (Neurontin) 100 mg BID PO Last administered on 04/07/17 08:41; Admin Dose 100 MG; Start 03/31/17 at 21:00 Fish Oil (Fish Oil) 2,000 mg BID PO Last administered on 04/07/17 08:41; Admin Dose 2,000 MG; Start 03/31/17 at 21:00 Atorvastatin Calcium (Lipitor) 40 mg HS PO Last administered on 04/05/17 21:17 ; Admin Dose 40 MG; Start 03/31/17 at 21:00 Hydromorphone HCl (Dilaudid) 0.2 mg Q15M PRN IV PAIN LEVEL 1-5 Last administered on 04/07/17 02:06; Admin Dose 0.2 MG; Start 04/06/17 at 12:30 Hydromorphone HCl (Dilaudid) 0.4 mg Q15M PRN IV PAIN LEVEL 6-10 Last administered on 04/06/17 19:58; Admin Dose 0.4 MG; Start 04/06/17 at 12:30 Oxycodone/ Acetaminophen (Percocet (5/ 325)) 1 tab Q3H PRN PO PAIN LEVEL 1-5 Last administered on 04/07/17 08:08; Admin Dose 1 TAB; Start 04/06/17 at 12:30 Oxycodone/ Acetaminophen (Percocet (5/ 325)) 2 tab Q3H PRN PO PAIN LEVEL 6-10; Start 04/06/17 at 12:30 Ondansetron HCl (Zofran Inj) 4 mg Q6H PRN IV NAUSEA AND/OR VOMITING; Start at 12:30 Famotidine (Pepcid Iv) 20 mg BID@08,20 IV Last administered on 04/07/17 08:41 ; Admin Dose 20 MG; Start 04/06/17 at 20:00 Aspirin (Aspirin) 325 mg DAILY PO Last administered on 04/07/17 08:41; Admin Dose 325 MG; Start 04/06/17 at 19:00 Acetaminophen (Tylenol Tab) 650 mg Q3H PRN PO ELEVATED TEMPERATURE; Start 04/06 at 12:30 Acetaminophen 650 mg 650 mg Q3H PRN AR ELEVATED TEMPERATURE Last administered on 04/06/17 17:47; Admin Dose 650 MG; Start 04/06/17 at 12:30 Magnesium Sulfate/ Dextrose (Magnesium Sulfate 1 Gm/D5W) 100 ml @ 100 mls/hr PRN PRN IVPB PENDING LAB VALUE; Start 04/06/17 at 12:30 Diagnostic Test (Pha) (Accu-Chek) 1 ea Q1H XX Last administered on 04/07/17 11 :48; Admin Dose 1 EA; Start 04/06/17 at 12:30 Dextrose (D50w Syringe) 25 ml Q15M PRN IV Till BS 80 mg/dL or above x2; Start 04/06/17 at 12:30 Dextrose 50 ml 50 ml Q15M PRN IV Till BS 80 mg/dL or above x2; Start 04/06/17 at 12:30 Phenylephrine HCl 40 mg/Dextrose 500 ml @ 0 mls/hr TITRATE IV Last administered on 04/06/17 21:02; Admin Dose 29.49 MLS/HR; Start 04/06/17 at 19: 00 Ferric Sodium Gluconate Complex/ Sodium Chloride (Ferrlecit/NS) 110 ml @ 110 mls/hr Q24H IVPB Last administered on 04/07/17 09:45; Admin Dose 110 MLS/HR; Start 04/07/17 at 10:00; Stop 04/11/17 at 10:59 TERA GODOY M.D. Apr 07, 2017 12:20
[2017-04-07] MEDS: INSULIN HUMAN REGULAR 100 UNIT in SOD CHLORIDE 0.9% 99 ML IV SCH (17:50)
[2017-04-07] MEDS ORDERED: FUROSEMIDE 20 MG INJ IV ONE (18:00)
[2017-04-07] MEDS: ATORVASTATIN 40 MG TAB PO SCH (21:29)
[2017-04-07 21:56] LABS: ADD SCAN DIFF NO
[2017-04-07 21:58] LABS: ABNORMAL IP MESSAGE 1; BASOPHILS % 0.1 % (0.0-2.0); EOSINOPHILS % 0.1 % (0.0-7.0); HEMATOCRIT 22.9 % (37.0-47.0); HEMOGLOBIN 7.3 g/dl (12.0-16.0); LYMPHOCYTES # 1.8 10^3/ul (0.8-2.9); LYMPHOCYTES % 21.1 % (15.0-51.0); MEAN CORPUSCULAR HGB CONC 31.9 g/dl (32.0-37.0); MEAN CORPUSCULAR VOLUME 90.9 fl (82.0-101.0); MEAN PLATELET VOLUME 10.5 fl (7.4-10.4); MONOCYTE # 0.7 10^3/ul (0.3-0.9); MONOCYTES % 8.4 % (0.0-11.0); NEUTROPHIL # 5.9 10^3/ul (1.6-7.5); NEUTROPHILS % 70.1 % (39.0-77.0); PLATELET COUNT 87 10^3/UL (140-415); RED BLOOD COUNT 2.52 10^6/ul (4.20-5.40); RED CELL DISTRIBUTION WIDTH 13.3 % (11.5-14.5); WHITE BLOOD COUNT 8.4 10^3/ul (4.8-10.8)
[2017-04-08] VITALS (46 sets, daily range): BP systolic 57–130; BP diastolic 41–80; PULSE 87–102; RESP 10–24
[2017-04-08] MEDS: ACCU-CHEK XX SCH ×15 (00:17→13:30)
[2017-04-08] MEDS ORDERED: GLUCOSE GEL 15 GRAM TUBE PO PRN ×2 (05:00)
[2017-04-08] MEDS ORDERED: DEXTROSE 50% 50 ML SYRINGE IV PRN ×2 (05:00)
[2017-04-08] MEDS ORDERED: GLUCAGON 1 MG INJ IM PRN (05:00)
[2017-04-08] MEDS ORDERED: GLUCOSE GEL 15 GRAM TUBE BUCCAL PRN (05:00)
[2017-04-08] MEDS: INSULIN ASPART [NOVOLOG] 3 ML PEN SC SCH ×6 (05:00→20:55)
[2017-04-08 06:46] LABS: ADD SCAN DIFF NO
[2017-04-08 06:50] LABS: AADO2 Arterial 141.5 mmHg (7.0-24.0); Allen Test ACCEPTAB; Arterial Base Excess -2.8 mmol/L (-3.0-3); Arterial COHb 0.3 % (0.0-3.0); Arterial Fraction of Oxyhgb 95.3 % (93.0-99.0); Arterial MetHb 0.1 % (0.0-1.5); Arterial Total Hemglobin 10.3 g/dl (12.0-18.0); Blood Gas PS 10; MODE VENT - CPAP
[2017-04-08 06:56] LABS: ABNORMAL IP MESSAGE 1; HEMATOCRIT 21.5 % (37.0-47.0); MEAN CORPUSCULAR HEMOGLOBIN 28.5 pg (29.0-33.0); MEAN CORPUSCULAR HGB CONC 31.2 g/dl (32.0-37.0); MEAN CORPUSCULAR VOLUME 91.5 fl (82.0-101.0); MEAN PLATELET VOLUME 10.8 fl (7.4-10.4); PLATELET COUNT 83 10^3/UL (140-415); RED BLOOD COUNT 2.35 10^6/ul (4.20-5.40); RED CELL DISTRIBUTION WIDTH 13.5 % (11.5-14.5); WHITE BLOOD COUNT 8.4 10^3/ul (4.8-10.8)
[2017-04-08 07:13] LABS: HEMOGLOBIN 6.7 g/dl (12.0-16.0)
[2017-04-08] MEDS: LEVOTHYROXINE 25 MCG TAB PO SCH (07:14)
--- NOTE | 2017-04-08 07:18 | PN ---
Date/Time of Note Date/Time of Note DATE: 04/08/17 TIME: 07:14 Assessment/Plan VTE Prophylaxis VTE Prophylaxis Intervention: SCD's Lines/Catheters IV C[facility] Type [facility] Central Line Central line still needed: Yes Urinary Cath still in place: No Assessment/Plan Chief Complaint/Hosp Course 1. Non-ST elevation myocardial infarction. Status post left heart catheterization on 04/03/2017 that showed multivessel coronary artery disease. Patient was evaluated by cardiac surgery. Status post CABG x5, BRANHAM to LAD, SVG to PDA, SVG to obtuse marginal artery, SVG to diagonal artery #1, sequence to diagonal artery #2 on 04/06/2017. 2. Dyslipidemia. The patient will be continued on statins. 3. Type 2 diabetes mellitus. Hemoglobin A1c 7.7. The patient will be continued on Lantus insulin along with sliding scale insulin. 4. Hypothyroidism. Continue Synthroid. 5. Essential hypertension. Continue antihypertensives. 6. Normocytic, normochromic anemia. Patient was started on IV iron supplements by cardiac surgery. Blood transfusion will be deferred to cardiac surgery. 7. Fluid, electrolytes and nutrition. Carbohydrate controlled, low- cholesterol diet. 8. Deep venous thrombosis prophylaxis. B/L lower extremity SCDs. 9. Gastrointestinal prophylaxis. Histamine 2 receptor blockers. PLAN: 1. Continue intensive care monitoring. 2. Encourage OOB. 3. Blood transfusion will be deferred to cardiac surgery. The case was discussed with Dr. Min. Critical care time: 35 minutes. Problems: Subjective 24 Hr Interval Summary Free Text/Dictation Doing well. Was out of bed yesterday. Exam/Review of Systems Vital Signs Vitals Vital Signs Date Time Temp Pulse Resp B/P Pulse Ox O2 Delivery O2 Flow Rate FiO2 04/08/17 06:00 91 13 104/50 97 Nasal Cannula 04/08/17 05:39 2.0 04/08/17 04:00 96.8 04/06/17 17:15 40 Intake and Output 04/07/17 04/07/17 04/08/17 15:00 23:00 07:00 Intake Total 975.50 ml 278 ml 401 ml Output Total 201 ml 330 ml 350 ml Balance 774.50 ml -52 ml 51 ml Exam GENERAL: This is a 71-year-old female patient lying in bed, no apparent distress. HEENT: Head normocephalic and atraumatic. Eyes: Anicteric sclerae. Conjunctivae clear. ENT: Nasal septum is midline. Oral mucosa is dry. . NECK: Supple. No JVD noticed. Right IJ cordis in place. RESPIRATORY: Bilaterally diminished breath sounds. Bilateral diminished breath sounds. No use of accessory muscles of respiration. CARDIAC: Regular rate and rhythm. S1 and S2 heard. Chest tubes to Pleur- evac. Draining sanguinous secretions. Dressing over sternotomy incision. ABDOMEN: Soft, nontender and nondistended. Bowel sounds positive in all 4 quadrants. GENITOURINARY: Guzman catheter in place. EXTREMITIES: No cyanosis, no clubbing, no edema. Peripheral pulses palpable. Right leg dressing over the vein graft site. NEUROLOGIC: The patient is awake, alert, and oriented. Results Result Diagram: 04/07/17 2150 04/07/17 0430 Results 24 hrs Laboratory Tests Test 04/07/17 08:17 04/07/17 09:40 04/07/17 10:47 04/07/17 11:47 Hemoglobin 7.7 L Hematocrit 23.8 L Bedside Glucose 178 224 H 231 H 223 H Test 04/07/17 12:56 04/07/17 13:05 04/07/17 14:12 04/07/17 15:06 Bedside Glucose 161 163 191 Hematocrit 25.1 L Test 04/07/17 16:26 04/07/17 17:35 04/07/17 18:37 04/07/17 19:59 Bedside Glucose 144 166 168 151 Test 04/07/17 20:38 04/07/17 21:44 04/07/17 21:50 04/07/17 22:46 Bedside Glucose 142 153 117 White Blood Count 8.4 # Red Blood Count 2.52 L Hemoglobin 7.3 L Hematocrit 22.9 L Mean Corpuscular Volume 90.9 Mean Corpuscular Hemoglobin 29.0 Mean Corpuscular Hemoglobin Concent 31.9 L Red Cell Distribution Width 13.3 Platelet Count 87 L Mean Platelet Volume 10.5 H Neutrophils % 70.1 Lymphocytes % 21.1 Monocytes % 8.4 Eosinophils % 0.1 Basophils % 0.1 Nucleated Red Blood Cells % 0.0 Neutrophils # 5.9 Lymphocytes # 1.8 Monocytes # 0.7 Eosinophils # 0.0 Basophils # 0.0 Nucleated Red Blood Cells # 0.0 Test 04/07/17 23:39 04/08/17 01:15 04/08/17 01:53 04/08/17 02:42 Bedside Glucose 112 128 127 141 Test 04/08/17 03:45 04/08/17 04:50 04/08/17 04:54 Bedside Glucose 115 119 White Blood Count 8.4 Red Blood Count 2.35 L Hemoglobin 6.7 *L Hematocrit 21.5 L Mean Corpuscular Volume 91.5 Mean Corpuscular Hemoglobin 28.5 L Mean Corpuscular Hemoglobin Concent 31.2 L Red Cell Distribution Width 13.5 Platelet Count 83 L Mean Platelet Volume 10.8 H Neutrophils % Lymphocytes % Monocytes % Eosinophils % Neutrophils # Lymphocytes # Monocytes # Eosinophils # Medications Medications Current Medications Gabapentin (Neurontin) 100 mg BID PO Last administered on 04/07/17 21:29; Admin Dose 100 MG; Start 03/31/17 at 21:00 Fish Oil (Fish Oil) 2,000 mg BID PO Last administered on 04/07/17 21:29; Admin Dose 2,000 MG; Start 03/31/17 at 21:00 Atorvastatin Calcium (Lipitor) 40 mg HS PO Last administered on 04/07/17 21:29 ; Admin Dose 40 MG; Start 03/31/17 at 21:00 Hydromorphone HCl (Dilaudid) 0.2 mg Q15M PRN IV PAIN LEVEL 1-5 Last administered on 04/07/17 23:52; Admin Dose 0.2 MG; Start 04/06/17 at 12:30 Hydromorphone HCl (Dilaudid) 0.4 mg Q15M PRN IV PAIN LEVEL 6-10 Last administered on 04/06/17 19:58; Admin Dose 0.4 MG; Start 04/06/17 at 12:30 Oxycodone/ Acetaminophen (Percocet (5/ 325)) 1 tab Q3H PRN PO PAIN LEVEL 1-5 Last administered on 04/07/17 20:13; Admin Dose 1 TAB; Start 04/06/17 at 12:30 Oxycodone/ Acetaminophen (Percocet (5/ 325)) 2 tab Q3H PRN PO PAIN LEVEL 6-10; Start 04/06/17 at 12:30 Ondansetron HCl (Zofran Inj) 4 mg Q6H PRN IV NAUSEA AND/OR VOMITING; Start at 12:30 Famotidine (Pepcid Iv) 20 mg BID@08,20 IV Last administered on 04/07/17 20:32 ; Admin Dose 20 MG; Start 04/06/17 at 20:00 Aspirin (Aspirin) 325 mg DAILY PO Last administered on 04/07/17 08:41; Admin Dose 325 MG; Start 04/06/17 at 19:00 Acetaminophen (Tylenol Tab) 650 mg Q3H PRN PO ELEVATED TEMPERATURE; Start 04/06 at 12:30 Acetaminophen 650 mg 650 mg Q3H PRN [place] ELEVATED TEMPERATURE Last administered on 04/06/17 17:47; Admin Dose 650 MG; Start 04/06/17 at 12:30 Magnesium Sulfate/ Dextrose (Magnesium Sulfate 1 Gm/D5W) 100 ml @ 100 mls/hr PRN PRN IVPB PENDING LAB VALUE; Start 04/06/17 at 12:30 Diagnostic Test (Pha) (Accu-Chek) 1 ea Q1H XX Last administered on 04/08/17 05 :30; Admin Dose 1 EA; Start 04/06/17 at 12:30 Dextrose (D50w Syringe) 25 ml Q15M PRN IV Till BS 80 mg/dL or above x2; Start 04/06/17 at 12:30 Dextrose 50 ml 50 ml Q15M PRN IV Till BS 80 mg/dL or above x2; Start 04/06/17 at 12:30 Phenylephrine HCl 40 mg/Dextrose 500 ml @ 0 mls/hr TITRATE IV Last administered on 04/06/17 21:02; Admin Dose 29.49 MLS/HR; Start 04/06/17 at 19: 00 Ferric Sodium Gluconate Complex/ Sodium Chloride (Ferrlecit/NS) 110 ml @ 110 mls/hr Q24H IVPB Last administered on 04/07/17 09:45; Admin Dose 110 MLS/HR; Start 04/07/17 at 10:00; Stop 04/11/17 at 10:59 Insulin Aspart (Novolog Insulin Pen) NOVOLOG *MILD* ALGORI... Q4 SC ; Start at 05:00 Miscellaneous Information 1 ea NOTE XX ; Start 04/08/17 at 05:00 Glucose (Glutose) 15 gm Q15M PRN PO DECREASED GLUCOSE; Start 04/08/17 at 05:00 Glucose (Glutose) 22.5 gm Q15M PRN PO DECREASED GLUCOSE; Start 04/08/17 at 05: 00 Dextrose (D50w Syringe) 25 ml Q15M PRN IV DECREASED GLUCOSE; Start 04/08/17 at 05:00 Dextrose (D50w Syringe) 50 ml Q15M PRN IV DECREASED GLUCOSE; Start 04/08/17 at 05:00 Glucagon (Glucagen) 1 mg Q15M PRN IM DECREASED GLUCOSE; Start 04/08/17 at 05:00 Glucose (Glutose) 15 gm Q15M PRN BUCCAL DECREASED GLUCOSE; Start 04/08/17 at 05 :00 SYLVAIN AGUILAR NP Apr 08, 2017 07:18
--- NOTE | 2017-04-08 07:26 | PN ---
Date/Time of Note Date/Time of Note DATE: 04/08/17 TIME: 07:25 Assessment/Plan VTE Prophylaxis VTE Prophylaxis Intervention: ambulation, heparin, LMWH Lines/Catheters IV Catheter Type (from Nrs): Central Line Central line still needed: No Urinary Cath still in place: No Assessment/Plan Assessment/Plan Afebrile. NSR. 180cc chest drainage. crit 21. Has been out of bed. Alert. DC central line. OK to transfer to tele Exam/Review of Systems Vital Signs Vitals Vital Signs Date Time Temp Pulse Resp B/P Pulse Ox O2 Delivery O2 Flow Rate FiO2 04/08/17 06:00 91 13 104/50 97 Nasal Cannula 04/08/17 05:39 2.0 04/08/17 04:00 96.8 04/06/17 17:15 40 Intake and Output 04/07/17 04/07/17 04/08/17 15:00 23:00 07:00 Intake Total 975.50 ml 278 ml 401 ml Output Total 201 ml 330 ml 350 ml Balance 774.50 ml -52 ml 51 ml Results Result Diagram: 04/08/17 0450 04/07/17 0430 Results 24 hrs Laboratory Tests Test 04/07/17 08:17 04/07/17 09:40 04/07/17 10:47 04/07/17 11:47 Hemoglobin 7.7 L Hematocrit 23.8 L Bedside Glucose 178 224 H 231 H 223 H Test 04/07/17 12:56 04/07/17 13:05 04/07/17 14:12 04/07/17 15:06 Bedside Glucose 161 163 191 Hematocrit 25.1 L Test 04/07/17 16:26 04/07/17 17:35 04/07/17 18:37 04/07/17 19:59 Bedside Glucose 144 166 168 151 Test 04/07/17 20:38 04/07/17 21:44 04/07/17 21:50 04/07/17 22:46 Bedside Glucose 142 153 117 White Blood Count 8.4 # Red Blood Count 2.52 L Hemoglobin 7.3 L Hematocrit 22.9 L Mean Corpuscular Volume 90.9 Mean Corpuscular Hemoglobin 29.0 Mean Corpuscular Hemoglobin Concent 31.9 L Red Cell Distribution Width 13.3 Platelet Count 87 L Mean Platelet Volume 10.5 H Neutrophils % 70.1 Lymphocytes % 21.1 Monocytes % 8.4 Eosinophils % 0.1 Basophils % 0.1 Nucleated Red Blood Cells % 0.0 Neutrophils # 5.9 Lymphocytes # 1.8 Monocytes # 0.7 Eosinophils # 0.0 Basophils # 0.0 Nucleated Red Blood Cells # 0.0 Test 04/07/17 23:39 04/08/17 01:15 04/08/17 01:53 04/08/17 02:42 Bedside Glucose 112 128 127 141 Test 04/08/17 03:45 04/08/17 04:50 04/08/17 04:54 Bedside Glucose 115 119 White Blood Count 8.4 Red Blood Count 2.35 L Hemoglobin 6.7 *L Hematocrit 21.5 L Mean Corpuscular Volume 91.5 Mean Corpuscular Hemoglobin 28.5 L Mean Corpuscular Hemoglobin Concent 31.2 L Red Cell Distribution Width 13.5 Platelet Count 83 L Mean Platelet Volume 10.8 H Neutrophils % Lymphocytes % Monocytes % Eosinophils % Neutrophils # Lymphocytes # Monocytes # Eosinophils # Medications Medications Current Medications Gabapentin (Neurontin) 100 mg BID PO Last administered on 04/07/17 21:29; Admin Dose 100 MG; Start 03/31/17 at 21:00 Fish Oil (Fish Oil) 2,000 mg BID PO Last administered on 04/07/17 21:29; Admin Dose 2,000 MG; Start 03/31/17 at 21:00 Atorvastatin Calcium (Lipitor) 40 mg HS PO Last administered on 04/07/17 21:29 ; Admin Dose 40 MG; Start 03/31/17 at 21:00 Hydromorphone HCl (Dilaudid) 0.2 mg Q15M PRN IV PAIN LEVEL 1-5 Last administered on 04/07/17 23:52; Admin Dose 0.2 MG; Start 04/06/17 at 12:30 Hydromorphone HCl (Dilaudid) 0.4 mg Q15M PRN IV PAIN LEVEL 6-10 Last administered on 04/06/17 19:58; Admin Dose 0.4 MG; Start 04/06/17 at 12:30 Oxycodone/ Acetaminophen (Percocet (5/ 325)) 1 tab Q3H PRN PO PAIN LEVEL 1-5 Last administered on 04/07/17 20:13; Admin Dose 1 TAB; Start 04/06/17 at 12:30 Oxycodone/ Acetaminophen (Percocet (5/ 325)) 2 tab Q3H PRN PO PAIN LEVEL 6-10; Start 04/06/17 at 12:30 Ondansetron HCl (Zofran Inj) 4 mg Q6H PRN IV NAUSEA AND/OR VOMITING; Start at 12:30 Famotidine (Pepcid Iv) 20 mg BID@08,20 IV Last administered on 04/07/17 20:32 ; Admin Dose 20 MG; Start 04/06/17 at 20:00 Aspirin (Aspirin) 325 mg DAILY PO Last administered on 04/07/17 08:41; Admin Dose 325 MG; Start 04/06/17 at 19:00 Acetaminophen (Tylenol Tab) 650 mg Q3H PRN PO ELEVATED TEMPERATURE; Start 04/06 at 12:30 Acetaminophen 650 mg 650 mg Q3H PRN [place] ELEVATED TEMPERATURE Last administered on 04/06/17 17:47; Admin Dose 650 MG; Start 04/06/17 at 12:30 Magnesium Sulfate/ Dextrose (Magnesium Sulfate 1 Gm/D5W) 100 ml @ 100 mls/hr PRN PRN IVPB PENDING LAB VALUE; Start 04/06/17 at 12:30 Diagnostic Test (Pha) (Accu-Chek) 1 ea Q1H XX Last administered on 04/08/17 05 :30; Admin Dose 1 EA; Start 04/06/17 at 12:30 Dextrose (D50w Syringe) 25 ml Q15M PRN IV Till BS 80 mg/dL or above x2; Start 04/06/17 at 12:30 Dextrose 50 ml 50 ml Q15M PRN IV Till BS 80 mg/dL or above x2; Start 04/06/17 at 12:30 Phenylephrine HCl 40 mg/Dextrose 500 ml @ 0 mls/hr TITRATE IV Last administered on 04/06/17 21:02; Admin Dose 29.49 MLS/HR; Start 04/06/17 at 19: 00 Ferric Sodium Gluconate Complex/ Sodium Chloride (Ferrlecit/NS) 110 ml @ 110 mls/hr Q24H IVPB Last administered on 04/07/17 09:45; Admin Dose 110 MLS/HR; Start 04/07/17 at 10:00; Stop 04/11/17 at 10:59 Insulin Aspart (Novolog Insulin Pen) NOVOLOG *MILD* ALGORI... Q4 SC ; Start at 05:00 Miscellaneous Information 1 ea NOTE XX ; Start 04/08/17 at 05:00 Glucose (Glutose) 15 gm Q15M PRN PO DECREASED GLUCOSE; Start 04/08/17 at 05:00 Glucose (Glutose) 22.5 gm Q15M PRN PO DECREASED GLUCOSE; Start 04/08/17 at 05: 00 Dextrose (D50w Syringe) 25 ml Q15M PRN IV DECREASED GLUCOSE; Start 04/08/17 at 05:00 Dextrose (D50w Syringe) 50 ml Q15M PRN IV DECREASED GLUCOSE; Start 04/08/17 at 05:00 Glucagon (Glucagen) 1 mg Q15M PRN IM DECREASED GLUCOSE; Start 04/08/17 at 05:00 Glucose (Glutose) 15 gm Q15M PRN BUCCAL DECREASED GLUCOSE; Start 04/08/17 at 05 :00 KARLA DEAN MD Apr 08, 2017 07:26
[2017-04-08 07:27] LABS: PHOSPHORUS 3.7 mg/dl (2.5-4.9)
[2017-04-08 07:31] LABS: CALCIUM 8.8 mg/dl (8.4-10.2); CREATININE 0.68 mg/dl (0.44-1.00); POTASSIUM 3.6 mmol/L (3.5-5.1)
[2017-04-08] MEDS ORDERED: SOD CHLORIDE 0.9% 250 ML IV* ONE (08:30)
[2017-04-08] MEDS: FISH OIL 1,000 MG CAP PO SCH ×2 (09:55→20:17)
[2017-04-08] MEDS: FAMOTIDINE 20 MG INJ IV SCH ×2 (09:55→20:18)
[2017-04-08] MEDS: GABAPENTIN 100 MG CAP PO SCH ×2 (09:56→20:55)
[2017-04-08] MEDS: ASPIRIN 325 MG TAB PO SCH (09:56)
[2017-04-08] MEDS: INSULIN GLARGINE [LANtus] 3 ML PEN SC SCH ×2 (10:01→20:54)
[2017-04-08] MEDS: ENOXAPARIN 40 MG/0.4 ML SYG SC SCH (10:02)
[2017-04-08] MEDS: OXYCODONE/ACETAMINOPHEN (5/325) TAB PO PRN (10:06)
[2017-04-08] MEDS: POTASSIUM CHLORIDE 50 ML IVPB PRN ×3 (10:06→14:53)
[2017-04-08] MEDS: SOD FERRIC GLUC COMPLX 125 MG in SOD CHLORIDE 0.9% 100 ML IVPB SCH (10:20)
--- NOTE | 2017-04-08 10:21 | CONS ---
Date/Time of Note Date/Time of Note DATE: 04/08/17 TIME: 10:15 Assessment/Plan Assessment/Plan Chief Complaint/Hosp Course IMPRESSION: 1. Acute myocardial infarction, non-ST elevation myocardial infarction downtrending cardiac enzymes currently.. Now POD#2 s/p LHC revealing 100% LCX with LL collateral and high grade LAD ostial/RCA mid/PDA stenosis/LVEF 40/no sig now POD#2 s/p cabg(brownlee-lad, svg-pda/om/diag) 2. Abnormal electrocardiogram with left bundle branch block pattern in the setting of acute myocardial infarction. 3. Chest pain secondary to #1. 4. Hypotension-borderline 5. Dyslipidemia. 6. Hypothyroidism. 7. Diabetes mellitus. 8. Cardiomyopathy-decreased LVEF-mild to moderately Recc: -Tele -Follow volume status closely -Continue asa -consider transfusion PRBC's -Continue fish oil//statin -start low dose BB as tolerated -Follow output of drains Problems: Consultation Date/Type/Reason Admit Date/Time Mar 31, 2017 at 17:02 Initial Consult Date 03/31/2017 Type of Consultation: Cardiology Reason for Consultation nstemi s/p cabg Referring Provider: CATHY SANTANA Exam/Review of Systems Vital Signs Vitals Vital Signs Date Time Temp Pulse Resp B/P Pulse Ox O2 Delivery O2 Flow Rate FiO2 04/08/17 08:30 92 18 108/46 98 Nasal Cannula 04/08/17 08:00 98.3 04/08/17 05:39 2.0 04/06/17 17:15 40 Intake and Output 04/07/17 04/07/17 04/08/17 15:00 23:00 07:00 Intake Total 975.50 ml 278 ml 401 ml Output Total 201 ml 350 ml 380 ml Balance 774.50 ml -72 ml 21 ml Exam Review of Systems: CONSTITUTIONAL: No fevers, chills. PULMONARY: No sob CARDIOVASCULAR: Mild pain at sternotomy site GASTROINTESTINAL: No nausea/vomiting. GENITOURINARY: No hematuria/dysuria. MUSCULOSKELETAL: No myagias/arthalgias. PSYCHIATRIC: The patient denies depression. NEUROLOGIC: No weakness Constitutional: alert Psych: no complaints Head: normocephalic ENMT: mucosa pink and moist Neck: jvd, supple Respiratory: diminished breath sounds Cardiovascular: regular rate and rhythm Gastrointestinal: non-tender, soft Musculoskeletal: muscle tone (normal) Extremities: edema (none) Neurological: other (No focal deficits) Results Result Diagram: 04/08/17 0450 04/08/17 0450 Results 24 hrs Laboratory Tests Test 04/07/17 10:47 04/07/17 11:47 04/07/17 12:56 04/07/17 13:05 Bedside Glucose 231 H 223 H 161 Hematocrit 25.1 L Test 04/07/17 14:12 04/07/17 15:06 04/07/17 16:26 04/07/17 17:35 Bedside Glucose 163 191 144 166 Test 04/07/17 18:37 04/07/17 19:59 04/07/17 20:38 04/07/17 21:44 Bedside Glucose 168 151 142 153 Test 04/07/17 21:50 04/07/17 22:46 04/07/17 23:39 04/08/17 01:15 White Blood Count 8.4 # Red Blood Count 2.52 L Hemoglobin 7.3 L Hematocrit 22.9 L Mean Corpuscular Volume 90.9 Mean Corpuscular Hemoglobin 29.0 Mean Corpuscular Hemoglobin Concent 31.9 L Red Cell Distribution Width 13.3 Platelet Count 87 L Mean Platelet Volume 10.5 H Neutrophils % 70.1 Lymphocytes % 21.1 Monocytes % 8.4 Eosinophils % 0.1 Basophils % 0.1 Nucleated Red Blood Cells % 0.0 Neutrophils # 5.9 Lymphocytes # 1.8 Monocytes # 0.7 Eosinophils # 0.0 Basophils # 0.0 Nucleated Red Blood Cells # 0.0 Bedside Glucose 117 112 128 Test 04/08/17 01:53 04/08/17 02:42 04/08/17 03:45 04/08/17 04:50 Bedside Glucose 127 141 115 White Blood Count 8.4 Red Blood Count 2.35 L Hemoglobin 6.7 *L Hematocrit 21.5 L Mean Corpuscular Volume 91.5 Mean Corpuscular Hemoglobin 28.5 L Mean Corpuscular Hemoglobin Concent 31.2 L Red Cell Distribution Width 13.5 Platelet Count 83 L Mean Platelet Volume 10.8 H Neutrophils % Lymphocytes % Monocytes % Eosinophils % Neutrophils # Lymphocytes # Monocytes # Eosinophils # Sodium Level 137 Potassium Level 3.6 Chloride Level 103 Carbon Dioxide Level 27 Anion Gap 11 Blood Urea Nitrogen 17 Creatinine 0.68 Glucose Level 102 # Hemoglobin A1c 7.3 H Calcium Level 8.8 Phosphorus Level 3.7 Magnesium Level 2.0 Test 04/08/17 04:54 04/08/17 09:53 Bedside Glucose 119 194 Medications Medications Current Medications Gabapentin (Neurontin) 100 mg BID PO Last administered on 04/08/17 09:56; Admin Dose 100 MG; Start 03/31/17 at 21:00 Fish Oil (Fish Oil) 2,000 mg BID PO Last administered on 04/08/17 09:55; Admin Dose 2,000 MG; Start 03/31/17 at 21:00 Atorvastatin Calcium (Lipitor) 40 mg HS PO Last administered on 04/07/17 21:29 ; Admin Dose 40 MG; Start 03/31/17 at 21:00 Hydromorphone HCl (Dilaudid) 0.2 mg Q15M PRN IV PAIN LEVEL 1-5 Last administered on 04/07/17 23:52; Admin Dose 0.2 MG; Start 04/06/17 at 12:30 Hydromorphone HCl (Dilaudid) 0.4 mg Q15M PRN IV PAIN LEVEL 6-10 Last administered on 04/06/17 19:58; Admin Dose 0.4 MG; Start 04/06/17 at 12:30 Oxycodone/ Acetaminophen (Percocet (5/ 325)) 1 tab Q3H PRN PO PAIN LEVEL 1-5 Last administered on 04/08/17 10:06; Admin Dose 1 TAB; Start 04/06/17 at 12:30 Oxycodone/ Acetaminophen (Percocet (5/ 325)) 2 tab Q3H PRN PO PAIN LEVEL 6-10; Start 04/06/17 at 12:30 Ondansetron HCl (Zofran Inj) 4 mg Q6H PRN IV NAUSEA AND/OR VOMITING; Start at 12:30 Famotidine (Pepcid Iv) 20 mg BID@08,20 IV Last administered on 04/08/17 09:55 ; Admin Dose 20 MG; Start 04/06/17 at 20:00 Aspirin (Aspirin) 325 mg DAILY PO Last administered on 04/08/17 09:56; Admin Dose 325 MG; Start 04/06/17 at 19:00 Acetaminophen (Tylenol Tab) 650 mg Q3H PRN PO ELEVATED TEMPERATURE; Start 04/06 at 12:30 Acetaminophen 650 mg 650 mg Q3H PRN [place] ELEVATED TEMPERATURE Last administered on 04/06/17 17:47; Admin Dose 650 MG; Start 04/06/17 at 12:30 Magnesium Sulfate/ Dextrose (Magnesium Sulfate 1 Gm/D5W) 100 ml @ 100 mls/hr PRN PRN IVPB PENDING LAB VALUE; Start 04/06/17 at 12:30 Diagnostic Test (Pha) (Accu-Chek) 1 ea Q1H XX Last administered on 04/08/17 05 :30; Admin Dose 1 EA; Start 04/06/17 at 12:30 Dextrose (D50w Syringe) 25 ml Q15M PRN IV Till BS 80 mg/dL or above x2; Start 04/06/17 at 12:30 Dextrose 50 ml 50 ml Q15M PRN IV Till BS 80 mg/dL or above x2; Start 04/06/17 at 12:30 Phenylephrine HCl 40 mg/Dextrose 500 ml @ 0 mls/hr TITRATE IV Last administered on 04/06/17 21:02; Admin Dose 29.49 MLS/HR; Start 04/06/17 at 19: 00 Ferric Sodium Gluconate Complex/ Sodium Chloride (Ferrlecit/NS) 110 ml @ 110 mls/hr Q24H IVPB Last administered on 04/07/17 09:45; Admin Dose 110 MLS/HR; Start 04/07/17 at 10:00; Stop 04/11/17 at 10:59 Insulin Aspart (Novolog Insulin Pen) NOVOLOG *MILD* ALGORI... Q4 SC Last administered on 04/08/17 10:00; Admin Dose 2 UNIT; Start 04/08/17 at 05:00 Miscellaneous Information 1 ea NOTE XX ; Start 04/08/17 at 05:00 Glucose (Glutose) 15 gm Q15M PRN PO DECREASED GLUCOSE; Start 04/08/17 at 05:00 Glucose (Glutose) 22.5 gm Q15M PRN PO DECREASED GLUCOSE; Start 04/08/17 at 05: 00 Dextrose (D50w Syringe) 25 ml Q15M PRN IV DECREASED GLUCOSE; Start 04/08/17 at 05:00 Dextrose (D50w Syringe) 50 ml Q15M PRN IV DECREASED GLUCOSE; Start 04/08/17 at 05:00 Glucagon (Glucagen) 1 mg Q15M PRN IM DECREASED GLUCOSE; Start 04/08/17 at 05:00 Glucose (Glutose) 15 gm Q15M PRN BUCCAL DECREASED GLUCOSE; Start 04/08/17 at 05 :00 Enoxaparin Sodium (Lovenox) 40 mg DAILY SC Last administered on 04/08/17 10:02 ; Admin Dose 40 MG; Start 04/08/17 at 09:00 Insulin Glargine (Lantus) 14 unit DAILY@20 SC Last administered on 04/08/17 10 :01; Admin Dose 14 UNIT; Start 04/08/17 at 09:00 KIRSTIN GERONIMO Apr 08, 2017 10:21
[2017-04-08 13:08] LABS: LYMPHOCYTES # 1.8 10^3/ul (0.8-2.9); MONOCYTE # 0.5 10^3/ul (0.3-0.9); NEUTROPHIL # 5.7 10^3/ul (1.6-7.5)
[2017-04-08 13:10] LABS: OVALOCYTES 1+; POLYCHROMASIA 1+
[2017-04-08 15:56] LABS: HEMOGLOBIN 8.1 g/dl (12.0-16.0)
[2017-04-08 16:14] LABS: CALCIUM 8.6 mg/dl (8.4-10.2); CREATININE 0.64 mg/dl (0.44-1.00); POTASSIUM 4.7 mmol/L (3.5-5.1)
[2017-04-08] MEDS: ATORVASTATIN 40 MG TAB PO SCH (20:17)
[2017-04-09] VITALS (12 sets, daily range): BP systolic 101–126; BP diastolic 55–61; PULSE 90–98; RESP 16–19
[2017-04-09] MEDS: INSULIN ASPART [NOVOLOG] 3 ML PEN SC SCH ×6 (01:16→20:18)
[2017-04-09 06:04] LABS: ADD SCAN DIFF NO; HEMATOCRIT 25.8 % (37.0-47.0); HEMOGLOBIN 8.3 g/dl (12.0-16.0); MEAN CORPUSCULAR HEMOGLOBIN 28.4 pg (29.0-33.0); MEAN CORPUSCULAR HGB CONC 32.2 g/dl (32.0-37.0); MEAN CORPUSCULAR VOLUME 88.4 fl (82.0-101.0); MEAN PLATELET VOLUME 10.5 fl (7.4-10.4); PLATELET COUNT 107 10^3/UL (140-415); RED BLOOD COUNT 2.92 10^6/ul (4.20-5.40); RED CELL DISTRIBUTION WIDTH 14.9 % (11.5-14.5); WHITE BLOOD COUNT 9.8 10^3/ul (4.8-10.8)
[2017-04-09] MEDS: LEVOTHYROXINE 25 MCG TAB PO SCH (06:32)
[2017-04-09 06:43] LABS: ALBUMIN/GLOBULIN RATIO 1.6; BILIRUBIN,INDIRECT 1.4 mg/dl (0-1.1); BILIRUBIN,TOTAL 1.4 mg/dl (0.2-1.3); CALCIUM 8.6 mg/dl (8.4-10.2); CREATININE 0.66 mg/dl (0.44-1.00); POTASSIUM 4.3 mmol/L (3.5-5.1); TOTAL PROTEIN 6.5 g/dl (6.1-8.1)
[2017-04-09 06:59] LABS: MAGNESIUM 2.1 mg/dl (1.7-2.5); PHOSPHORUS 3.3 mg/dl (2.5-4.9)
--- NOTE | 2017-04-09 07:16 | PN ---
Date/Time of Note Date/Time of Note DATE: 04/09/17 TIME: 07:13 Assessment/Plan Lines/Catheters IV Catheter Type (from Nrs): Saline Lock Guzman in Place (from Nrs): No Assessment/Plan Chief Complaint/Hosp Course s/p cabg dm II acute blood loss anemia needs bm stool program ordered chest tubes still draining Problems: Subjective 24 Hr Interval Summary Constitutional: no complaints Feeding: advancing diet Pain Control: well controlled Exam/Review of Systems Vital Signs Vitals Vital Signs Date Time Temp Pulse Resp B/P Pulse Ox O2 Delivery O2 Flow Rate FiO2 04/09/17 04:18 99.3 92 16 101/55 98 04/09/17 01:32 2.0 04/08/17 19:00 Nasal Cannula 04/06/17 17:15 40 Intake and Output 04/08/17 04/08/17 04/09/17 15:00 23:00 07:00 Intake Total 1040 ml 200 ml 100 ml Output Total 600 ml 340 ml 230 ml Balance 440 ml -140 ml -130 ml Exam Constitutional: alert Neck: supple Respiratory: other (chest tube 900 cc total 230 cc/24) Cardiovascular: regular rate and rhythm Musculoskeletal: nl extremities to inspection 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
[2017-04-09] MEDS: DOCUSATE SODIUM 100 MG CAP PO SCH (08:24)
[2017-04-09] MEDS: ASPIRIN 325 MG TAB PO SCH (08:24)
[2017-04-09] MEDS: FAMOTIDINE 20 MG INJ IV SCH ×2 (08:24→20:11)
[2017-04-09] MEDS: GABAPENTIN 100 MG CAP PO SCH ×2 (08:24→20:11)
[2017-04-09] MEDS: FISH OIL 1,000 MG CAP PO SCH ×2 (08:24→20:11)
[2017-04-09] MEDS: ENOXAPARIN 40 MG/0.4 ML SYG SC SCH (08:36)
--- NOTE | 2017-04-09 10:51 | CONS ---
Date/Time of Note Date/Time of Note DATE: 04/09/17 TIME: 10:46 Assessment/Plan Assessment/Plan Additional Assessment/Plan 1. Acute myocardial infarction, non-ST elevation myocardial infarction downtrending cardiac enzymes currently.. Now POD s/p LHC revealing 100% LCX with LL collateral and high grade LAD ostial/RCA mid/PDA stenosis/LVEF 40/no sig now POD#2 s/p cabg(brownlee-lad, svg-pda/om/diag) - recovering now. 2. Abnormal electrocardiogram with left bundle branch block pattern in the setting of acute myocardial infarction- in good fluid staus now. 3. Chest pain secondary to #1- now better. 4. Hypotension-borderline - better BP now. 5. Dyslipidemia - 6. Hypothyroidism - 7. Diabetes mellitus. 8. Cardiomyopathy-decreased LVEF-mild to moderately - post op, con't to keep euvolemic Consultation Date/Type/Reason Admit Date/Time Mar 31, 2017 at 17:02 Type of Consultation: Cardiology Referring Provider: CATHY SANTANA 24 HR Interval Summary Free Text/Dictation NO acute change - post op now, no CP, will adjust Rx as needed ROS: No fever, no chills, no nausea, no vomiting, no diarrhea/constipation No recent weight changes No chest pain, no PND, no orthopnea No dizziness, blurred vision No thirst, no heat or cold intolerance (pain controlled) Exam/Review of Systems Vital Signs Vitals Vital Signs Date Time Temp Pulse Resp B/P Pulse Ox O2 Delivery O2 Flow Rate FiO2 04/09/17 09:06 90 04/09/17 07:41 97.9 17 117/57 95 04/09/17 01:32 2.0 04/08/17 19:00 Nasal Cannula 04/06/17 17:15 40 Intake and Output 04/08/17 04/08/17 04/09/17 15:00 23:00 07:00 Intake Total 1040 ml 200 ml 100 ml Output Total 600 ml 340 ml 230 ml Balance 440 ml -140 ml -130 ml Exam General: WN/WD/NAD, AOx 2-3 HEENT: Unicetric/atraumatic/EOMI (follows commands) NECK: JVD elevated, no thyromegaly Lymph: no lymphadenopathy HEART: regular with no S3, II/ systolic murmur at apex, post op LUNGS: Coarse sounds ABD: soft, NT, ND, +BS : Intact Neuro: non focal SKIN: chronic changes EXT: trace edema Results Result Diagram: 04/09/17 0530 04/09/17 0530 Results 24 hrs Laboratory Tests Test 04/08/17 11:57 04/08/17 15:50 04/08/17 17:39 04/08/17 20:49 Bedside Glucose 223 H 229 H 232 H Hemoglobin 8.1 #L Hematocrit 25.0 L Sodium Level 133 L Potassium Level 4.7 Chloride Level 101 Carbon Dioxide Level 25 Anion Gap 12 Blood Urea Nitrogen 21 H Creatinine 0.64 Glucose Level 219 # Calcium Level 8.6 Test 04/09/17 01:13 04/09/17 05:30 04/09/17 06:15 04/09/17 07:41 Bedside Glucose 168 171 White Blood Count 9.8 Red Blood Count 2.92 #L Hemoglobin 8.3 L Hematocrit 25.8 L Mean Corpuscular Volume 88.4 Mean Corpuscular Hemoglobin 28.4 L Mean Corpuscular Hemoglobin Concent 32.2 Red Cell Distribution Width 14.9 H Platelet Count 107 #L Mean Platelet Volume 10.5 H Neutrophils % Lymphocytes % Monocytes % Neutrophils # Lymphocytes # Monocytes # Sodium Level 138 Potassium Level 4.3 Chloride Level 102 Carbon Dioxide Level 28 Anion Gap 12 Blood Urea Nitrogen 15 Creatinine 0.66 Glucose Level 161 Calcium Level 8.6 Phosphorus Level 3.3 Magnesium Level 2.1 Total Bilirubin 1.4 H Direct Bilirubin 0.00 Indirect Bilirubin 1.4 H Aspartate Amino Transf (AST/SGOT) 63 H Alanine Aminotransferase (ALT/SGPT) 43 Alkaline Phosphatase 49 Total Protein 6.5 Albumin 4.0 Globulin 2.50 Albumin/Globulin Ratio 1.60 Lab Scanned Report BLOOD TRANSFUSION Test 04/09/17 08:00 Bedside Glucose 160 Medications Medications Current Medications Gabapentin (Neurontin) 100 mg BID PO Last administered on 04/09/17 08:24; Admin Dose 100 MG; Start 03/31/17 at 21:00 Fish Oil (Fish Oil) 2,000 mg BID PO Last administered on 04/09/17 08:24; Admin Dose 2,000 MG; Start 03/31/17 at 21:00 Atorvastatin Calcium (Lipitor) 40 mg HS PO Last administered on 04/08/17 20:17 ; Admin Dose 40 MG; Start 03/31/17 at 21:00 Hydromorphone HCl (Dilaudid) 0.2 mg Q15M PRN IV PAIN LEVEL 1-5 Last administered on 04/07/17 23:52; Admin Dose 0.2 MG; Start 04/06/17 at 12:30 Hydromorphone HCl (Dilaudid) 0.4 mg Q15M PRN IV PAIN LEVEL 6-10 Last administered on 04/06/17 19:58; Admin Dose 0.4 MG; Start 04/06/17 at 12:30 Oxycodone/ Acetaminophen (Percocet (5/ 325)) 1 tab Q3H PRN PO PAIN LEVEL 1-5 Last administered on 04/08/17 10:06; Admin Dose 1 TAB; Start 04/06/17 at 12:30 Oxycodone/ Acetaminophen (Percocet (5/ 325)) 2 tab Q3H PRN PO PAIN LEVEL 6-10 Last administered on 04/08/17 20:18; Admin Dose 2 TAB; Start 04/06/17 at 12:30 Ondansetron HCl (Zofran Inj) 4 mg Q6H PRN IV NAUSEA AND/OR VOMITING; Start at 12:30 Famotidine (Pepcid Iv) 20 mg BID@08,20 IV Last administered on 04/09/17 08:24 ; Admin Dose 20 MG; Start 04/06/17 at 20:00 Aspirin (Aspirin) 325 mg DAILY PO Last administered on 04/09/17 08:24; Admin Dose 325 MG; Start 04/06/17 at 19:00 Acetaminophen (Tylenol Tab) 650 mg Q3H PRN PO ELEVATED TEMPERATURE; Start 04/06 at 12:30 Acetaminophen 650 mg 650 mg Q3H PRN [place] ELEVATED TEMPERATURE Last administered on 04/06/17 17:47; Admin Dose 650 MG; Start 04/06/17 at 12:30 Magnesium Sulfate/ Dextrose 100 ml @ 100 mls/hr PRN PRN IVPB PENDING LAB VALUE ; Start 04/06/17 at 12:30 Ferric Sodium Gluconate Complex/ Sodium Chloride (Ferrlecit/NS) 110 ml @ 110 mls/hr Q24H IVPB Last administered on 04/08/17 10:20; Admin Dose 110 MLS/HR; Start 04/07/17 at 10:00; Stop 04/11/17 at 10:59 Insulin Aspart (Novolog Insulin Pen) NOVOLOG *MILD* ALGORI... Q4 SC Last administered on 04/09/17 08:34; Admin Dose 1 UNIT; Start 04/08/17 at 05:00 Miscellaneous Information 1 ea NOTE XX ; Start 04/08/17 at 05:00 Glucose (Glutose) 15 gm Q15M PRN PO DECREASED GLUCOSE; Start 04/08/17 at 05:00 Glucose (Glutose) 22.5 gm Q15M PRN PO DECREASED GLUCOSE; Start 04/08/17 at 05: 00 Dextrose (D50w Syringe) 25 ml Q15M PRN IV DECREASED GLUCOSE; Start 04/08/17 at 05:00 Dextrose (D50w Syringe) 50 ml Q15M PRN IV DECREASED GLUCOSE; Start 04/08/17 at 05:00 Glucagon (Glucagen) 1 mg Q15M PRN IM DECREASED GLUCOSE; Start 04/08/17 at 05:00 Glucose (Glutose) 15 gm Q15M PRN BUCCAL DECREASED GLUCOSE; Start 04/08/17 at 05 :00 Enoxaparin Sodium (Lovenox) 40 mg DAILY SC Last administered on 04/09/17 08:36 ; Admin Dose 40 MG; Start 04/08/17 at 09:00 Insulin Glargine (Lantus) 14 unit DAILY@20 SC Last administered on 04/08/17 20 :54; Admin Dose 14 UNIT; Start 04/08/17 at 09:00 Docusate Sodium (Colace) 100 mg DAILY PO Last administered on 04/09/17 08:24; Admin Dose 100 MG; Start 04/09/17 at 09:00 Bisacodyl (Dulcolax Supp) 10 mg DAILY PRN [place] CONSTIPATION; Start 04/09/17 at 07 :30 AMANDA NIETO MD Apr 09, 2017 10:51
[2017-04-09] MEDS: SOD FERRIC GLUC COMPLX 125 MG in SOD CHLORIDE 0.9% 100 ML IVPB SCH (12:46)
--- NOTE | 2017-04-09 13:21 | PN ---
Date/Time of Note Date/Time of Note DATE: 04/09/17 TIME: 13:16 Assessment/Plan VTE Prophylaxis VTE Prophylaxis Intervention: LMWH Lines/Catheters IV C[facility] Type [facility] Saline Lock Urinary Cath still in place: No Assessment/Plan Assessment/Plan 1. Non-ST elevation myocardial infarction. Status post left heart catheterization on 04/03/2017 that showed multivessel coronary artery disease. Patient was evaluated by cardiac surgery. POD#2 - Status post CABG x5, BRANHAM to LAD, SVG to PDA, SVG to obtuse marginal artery, SVG to diagonal artery #1, sequence to diagonal artery #2 on 04/06/2017. - f/u CT surg recs, ambulation, pain management 2. Acute blood loss anemia - transfuse as per CT surg recs, s/p 1 unit PRBCs 3. Dyslipidemia. The patient will be continued on statins. 4. Type 2 diabetes mellitus. Hemoglobin A1c 7.7. The patient will be continued on Lantus insulin along with sliding scale insulin. 5. Hypothyroidism. Continue Synthroid. 6. Essential hypertension. Continue antihypertensives. 7. Normocytic, normochromic anemia. Patient was started on IV iron supplements by cardiac surgery. Blood transfusion will be deferred to cardiac surgery. 8. Fluid, electrolytes and nutrition. Carbohydrate controlled, low- cholesterol diet. 9. Deep venous thrombosis prophylaxis. lovenox 10. Gastrointestinal prophylaxis. Histamine 2 receptor blockers. PLAN: 1. Continue to monitor acute changes 2. Encourage OOB. 3. Blood transfusion will be deferred to cardiac surgery. 4. As per clinical course. this progress note took greater than 30 minutes to complete Subjective 24 Hr Interval Summary Free Text/Dictation Patient had no overnight events. Received 1 unit PRBC yesterday. She was able to ambulate to the bathroom. Spoke to her and the daughter at bedside about the care plan. 15 minutes spent. Exam/Review of Systems Vital Signs Vitals Vital Signs Date Time Temp Pulse Resp B/P Pulse Ox O2 Delivery O2 Flow Rate FiO2 04/09/17 13:02 94 04/09/17 11:42 97.9 118/61 96 04/09/17 08:15 2.0 04/09/17 07:41 17 04/08/17 19:00 Nasal Cannula 04/06/17 17:15 40 Intake and Output 04/08/17 04/08/1704/09/17 15:00 23:00 07:00 Intake Total 1040 ml 200 ml 100 ml Output Total 600 ml 340 ml 230 ml Balance 440 ml -140 ml -130 ml Exam Gen Dajuan: NAD, AAOx4 HEENT: NC/AT, PERRLA, EOMI, no pharyngeal erythema, no tonsillar exudates, no lymphadenopathy, no JVD, no carotid bruits NECK: supple, no thyromegaly THORAX: symmetrical, no obvious deformities, sternotomy scar well healed - no active drainage noted CV: S1S2, RRR, no M/G/R Lungs: CTAB no W/C/R/R Abd: soft, NT/ND, +BS, no rebound, no guarding, neg HSM EXT: trace bilateral lower extremity edema, no ecchymosis, no clubbing, FROM. left lower extremity graft sites c/d/i Neuro: CN II-XII grossly intact, no focal deficits Psych: good mentation, alert and oriented, good mood and affect Skin: C/D/I Results Result Diagram: 04/09/17 0530 04/09/17 0530 Results 24 hrs Laboratory Tests Test 04/08/17 15:50 04/08/17 17:39 04/08/17 20:49 04/09/17 01:13 Hemoglobin 8.1 #L Hematocrit 25.0 L Sodium Level 133 L Potassium Level 4.7 Chloride Level 101 Carbon Dioxide Level 25 Anion Gap 12 Blood Urea Nitrogen 21 H Creatinine 0.64 Glucose Level 219 # Calcium Level 8.6 Bedside Glucose 229 H 232 H 168 Test 04/09/17 05:30 04/09/17 06:15 04/09/17 07:41 04/09/17 08:00 White Blood Count 9.8 Red Blood Count 2.92 #L Hemoglobin 8.3 L Hematocrit 25.8 L Mean Corpuscular Volume 88.4 Mean Corpuscular Hemoglobin 28.4 L Mean Corpuscular Hemoglobin Concent 32.2 Red Cell Distribution Width 14.9 H Platelet Count 107 #L Mean Platelet Volume 10.5 H Neutrophils % Lymphocytes % Monocytes % Neutrophils # Lymphocytes # Monocytes # Sodium Level 138 Potassium Level 4.3 Chloride Level 102 Carbon Dioxide Level 28 Anion Gap 12 Blood Urea Nitrogen 15 Creatinine 0.66 Glucose Level 161 Calcium Level 8.6 Phosphorus Level 3.3 Magnesium Level 2.1 Total Bilirubin 1.4 H Direct Bilirubin 0.00 Indirect Bilirubin 1.4 H Aspartate Amino Transf (AST/SGOT) 63 H Alanine Aminotransferase (ALT/SGPT) 43 Alkaline Phosphatase 49 Total Protein 6.5 Albumin 4.0 Globulin 2.50 Albumin/Globulin Ratio 1.60 Bedside Glucose 171 160 Lab Scanned Report BLOOD TRANSFUSION Test 04/09/17 12:35 Bedside Glucose 209 Medications Medications Current Medications Gabapentin (Neurontin) 100 mg BID PO Last administered on 04/09/17 08:24; Admin Dose 100 MG; Start 03/31/17 at 21:00 Fish Oil (Fish Oil) 2,000 mg BID PO Last administered on 04/09/17 08:24; Admin Dose 2,000 MG; Start 03/31/17 at 21:00 Atorvastatin Calcium (Lipitor) 40 mg HS PO Last administered on 04/08/17 20:17 ; Admin Dose 40 MG; Start 03/31/17 at 21:00 Hydromorphone HCl (Dilaudid) 0.2 mg Q15M PRN IV PAIN LEVEL 1-5 Last administered on 04/07/17 23:52; Admin Dose 0.2 MG; Start 04/06/17 at 12:30 Hydromorphone HCl (Dilaudid) 0.4 mg Q15M PRN IV PAIN LEVEL 6-10 Last administered on 04/06/17 19:58; Admin Dose 0.4 MG; Start 04/06/17 at 12:30 Oxycodone/ Acetaminophen (Percocet (5/ 325)) 1 tab Q3H PRN PO PAIN LEVEL 1-5 Last administered on 04/08/17 10:06; Admin Dose 1 TAB; Start 04/06/17 at 12:30 Oxycodone/ Acetaminophen (Percocet (5/ 325)) 2 tab Q3H PRN PO PAIN LEVEL 6-10 Last administered on 04/08/17 20:18; Admin Dose 2 TAB; Start 04/06/17 at 12:30 Ondansetron HCl (Zofran Inj) 4 mg Q6H PRN IV NAUSEA AND/OR VOMITING; Start at 12:30 Famotidine (Pepcid Iv) 20 mg BID@08,20 IV Last administered on 04/09/17 08:24 ; Admin Dose 20 MG; Start 04/06/17 at 20:00 Aspirin (Aspirin) 325 mg DAILY PO Last administered on 04/09/17 08:24; Admin Dose 325 MG; Start 04/06/17 at 19:00 Acetaminophen (Tylenol Tab) 650 mg Q3H PRN PO ELEVATED TEMPERATURE; Start 04/06 at 12:30 Acetaminophen 650 mg 650 mg Q3H PRN [place] ELEVATED TEMPERATURE Last administered on 04/06/17 17:47; Admin Dose 650 MG; Start 04/06/17 at 12:30 Magnesium Sulfate/ Dextrose 100 ml @ 100 mls/hr PRN PRN IVPB PENDING LAB VALUE ; Start 04/06/17 at 12:30 Ferric Sodium Gluconate Complex/ Sodium Chloride (Ferrlecit/NS) 110 ml @ 110 mls/hr Q24H IVPB Last administered on 04/09/17 12:46; Admin Dose 110 MLS/HR; Start 04/07/17 at 10:00; Stop 04/11/17 at 10:59 Insulin Aspart (Novolog Insulin Pen) NOVOLOG *MILD* ALGORI... Q4 SC Last administered on 04/09/17 12:49; Admin Dose 2 UNIT; Start 04/08/17 at 05:00 Miscellaneous Information 1 ea NOTE XX ; Start 04/08/17 at 05:00 Glucose (Glutose) 15 gm Q15M PRN PO DECREASED GLUCOSE; Start 04/08/17 at 05:00 Glucose (Glutose) 22.5 gm Q15M PRN PO DECREASED GLUCOSE; Start 04/08/17 at 05: 00 Dextrose (D50w Syringe) 25 ml Q15M PRN IV DECREASED GLUCOSE; Start 04/08/17 at 05:00 Dextrose (D50w Syringe) 50 ml Q15M PRN IV DECREASED GLUCOSE; Start 04/08/17 at 05:00 Glucagon (Glucagen) 1 mg Q15M PRN IM DECREASED GLUCOSE; Start 04/08/17 at 05:00 Glucose (Glutose) 15 gm Q15M PRN BUCCAL DECREASED GLUCOSE; Start 04/08/17 at 05 :00 Enoxaparin Sodium (Lovenox) 40 mg DAILY SC Last administered on 04/09/17 08:36 ; Admin Dose 40 MG; Start 04/08/17 at 09:00 Insulin Glargine (Lantus) 14 unit DAILY@20 SC Last administered on 04/08/17 20 :54; Admin Dose 14 UNIT; Start 04/08/17 at 09:00 Docusate Sodium (Colace) 100 mg DAILY PO Last administered on 04/09/17 08:24; Admin Dose 100 MG; Start 04/09/17 at 09:00 Bisacodyl (Dulcolax Supp) 10 mg DAILY PRN [place] CONSTIPATION; Start 04/09/17 at 07 :30 YUMI ALCANTAR MD Apr 09, 2017 13:21
[2017-04-09] MEDS: OXYCODONE/ACETAMINOPHEN (5/325) TAB PO PRN ×2 (13:40→23:22)
--- NOTE | 2017-04-09 13:59 | RADRPT ---
Vent Rate: 85 bpm RR Interval: 0 msec AR Interval: 156 msec QRS Duration: 130 msec QT Interval: 412 msec QTC Interval: 490 msec P-R-T [place]: 28 - -3 - 0 degrees Normal sinus rhythm with sinus arrhythmia Left bundle branch block Abnormal ECG Electronically Signed By: Erich Villalobos [id number]
--- NOTE | 2017-04-09 14:00 | RADRPT ---
Vent Rate: 89 bpm RR Interval: 0 msec NM Interval: 150 msec QRS Duration: 136 msec QT Interval: 414 msec QTC Interval: 503 msec P-R-T [place]: 48 - -13 - 152 degrees Normal sinus rhythm Left bundle branch block Abnormal ECG Electronically Signed By: Erich Villalobos [id number]
[2017-04-09 14:19] LABS: BURR CELLS RARE; EOSINOPHILS # 0.5 10^3/ul (0.0-0.5); LYMPHOCYTES # 2.6 10^3/ul (0.8-2.9); MYELOCYTES # 0.1; NEUTROPHIL # 6.3 10^3/ul (1.6-7.5); OVALOCYTES OCCASIONAL
[2017-04-09] MEDS ORDERED: VITAMIN A & D 5 GM OINT PACKET TOP ONE (20:05)
[2017-04-09] MEDS: ATORVASTATIN 40 MG TAB PO SCH (20:11)
[2017-04-09] MEDS: INSULIN GLARGINE [LANtus] 3 ML PEN SC SCH (20:18)
[2017-04-09] MEDS: BENZONATATE 100 MG CAP PO PRN (23:42)
[2017-04-10] VITALS (10 sets, daily range): BP systolic 105–119; BP diastolic 56–64; PULSE 85–105; RESP 17–20
[2017-04-10] MEDS: INSULIN ASPART [NOVOLOG] 3 ML PEN SC SCH ×6 (01:14→20:17)
[2017-04-10] MEDS: BISACODYL 10 MG SUPP PR PRN (05:39)
[2017-04-10] MEDS: LEVOTHYROXINE 25 MCG TAB PO SCH (06:08)
--- NOTE | 2017-04-10 07:41 | PN ---
Date/Time of Note Date/Time of Note DATE: 04/10/17 TIME: 07:39 Assessment/Plan Lines/Catheters IV Catheter Type (from [facility]): Saline Lock Guzman in Place (from [facility]): No Assessment/Plan Chief Complaint/Hosp Course s/p cabg dm II acute blood loss anemia chest tubes still draining Problems: Subjective 24 Hr Interval Summary Constitutional: BM, ambulates, no complaints Feeding: advancing diet Exam/Review of Systems Vital Signs Vitals Vital Signs Date Time Temp Pulse Resp B/P Pulse Ox O2 Delivery O2 Flow Rate FiO2 04/10/17 04:31 85 04/10/17 03:59 97.6 119/61 98 04/10/17 01:43 2.0 04/08/17 19:00 Nasal Cannula 04/06/17 17:15 40 Intake and Output 04/09/17 04/09/17 04/10/17 15:00 23:00 07:00 Intake Total 100 ml 120 ml Output Total 340 ml Balance 100 ml -220 ml Exam Constitutional: alert, well developed Psych: no complaints Head: normocephalic Eyes: EOMI ENMT: nl nasal mucosa & septum Neck: supple Respiratory: other (chest tubes 1100 cc 200/24 room air sat 95%) Musculoskeletal: nl extremities to inspection Neurological: C[employer]GETABLE II-XII intact Results Result Diagram: 04/09/1730 04/09/1730 MO GOMEZ MD Apr 10, 2017 07:40
[2017-04-10 07:42] LABS: ADD SCAN DIFF NO
[2017-04-10 07:48] LABS: BASOPHILS % 0.3 % (0.0-2.0); EOSINOPHILS # 0.3 10^3/ul (0.0-0.5); HEMOGLOBIN 8.5 g/dl (12.0-16.0); LYMPHOCYTES # 2.6 10^3/ul (0.8-2.9); LYMPHOCYTES % 27.9 % (15.0-51.0); MEAN CORPUSCULAR HEMOGLOBIN 28.9 pg (29.0-33.0); MEAN CORPUSCULAR HGB CONC 32.7 g/dl (32.0-37.0); MEAN CORPUSCULAR VOLUME 88.4 fl (82.0-101.0); MEAN PLATELET VOLUME 10.8 fl (7.4-10.4); MONOCYTE # 0.9 10^3/ul (0.3-0.9); MONOCYTES % 10.3 % (0.0-11.0); NEUTROPHIL # 5.3 10^3/ul (1.6-7.5); NEUTROPHILS % 57.8 % (39.0-77.0); NUCLEATED RED BLOOD CELLS% 0.2 /100WBC (0.0-0.0); PLATELET COUNT 168 10^3/UL (140-415); RED BLOOD COUNT 2.94 10^6/ul (4.20-5.40); RED CELL DISTRIBUTION WIDTH 14.7 % (11.5-14.5); WHITE BLOOD COUNT 9.1 10^3/ul (4.8-10.8)
[2017-04-10 08:28] LABS: CREATININE 0.6 mg/dl (0.44-1.00); POTASSIUM 4.8 mmol/L (3.5-5.1)
[2017-04-10] MEDS: ASPIRIN 325 MG TAB PO SCH (08:59)
[2017-04-10] MEDS: FISH OIL 1,000 MG CAP PO SCH ×2 (08:59→20:11)
[2017-04-10] MEDS: GABAPENTIN 100 MG CAP PO SCH ×2 (08:59→20:11)
[2017-04-10] MEDS: DOCUSATE SODIUM 100 MG CAP PO SCH (08:59)
[2017-04-10] MEDS: FAMOTIDINE 20 MG INJ IV SCH ×2 (09:00→20:12)
[2017-04-10] MEDS: ENOXAPARIN 40 MG/0.4 ML SYG SC SCH (09:04)
[2017-04-10] MEDS: OXYCODONE/ACETAMINOPHEN (5/325) TAB PO PRN (09:06)
--- NOTE | 2017-04-10 10:06 | RADRPT ---
PROCEDURE: XR Chest 1 view. CLINICAL INDICATION: Shortness of breath. TECHNIQUE: AP views of the chest were obtained. COMPARISON: April 06, 2017 FINDINGS: The heart is large. Calcified atherosclerosis is noted in the aorta. Mediastinal drain overlies the heart. Median sternotomy wires overlie the heart. Left-sided chest tube is stable. No pneumothora x as visualized. Scattered atelectasis is identified in the left lower lobe. No consolidations are identified. No pneumothorax is seen. Osseous structures are intact. IMPRESSION: Cardiomegaly with calcified atherosclerosis in the aorta. Interval extubation and [place] catheter removal. Stable left chest tube. No visualized pneumothorax. Patchy atelectasis in the left lower lobe. RPTAT: AA .Ed Conley MD, Date Time Electronically viewed and signed by .Ed Conley MD, on 04/10/2017 10:06 .P/
[2017-04-10] MEDS: BENZONATATE 100 MG CAP PO PRN ×2 (11:08→22:01)
[2017-04-10] MEDS: SOD FERRIC GLUC COMPLX 125 MG in SOD CHLORIDE 0.9% 100 ML IVPB SCH (11:08)
--- NOTE | 2017-04-10 12:00 | PN ---
Date/Time of Note Date/Time of Note DATE: 04/10/17 TIME: 12:00 Assessment/Plan VTE Prophylaxis VTE Prophylaxis Intervention: SCD's Lines/Catheters IV Catheter Type (from Nrs): Peripheral IV Urinary Cath still in place: No Assessment/Plan Assessment/Plan 71 yo F with pmhx CAD admitted for NSTEMI, found to have multi vessel disease on C 04.03. Now sp CABG 04.06 1. Non-ST elevation myocardial infarction. Status post left heart catheterization on 04/03/2017 that showed multivessel coronary artery disease. Status post CABG 04/06/2017. - f/u CT surg recs, ambulation, pain management 2. Acute blood loss anemia - transfuse as per CT surg recs, s/p 1 unit PRBCs 3. Dyslipidemia. statin 4. Type 2 diabetes mellitus. Hemoglobin A1c 7.7. The patient will be continued on Lantus insulin along with sliding scale insulin. 5. Hypothyroidism. Continue Synthroid. 6. Essential hypertension. Continue antihypertensives. 7. Normocytic, normochromic anemia. Patient was started on IV iron supplements by cardiac surgery. Blood transfusion will be deferred to cardiac surgery. 8. Fluid, electrolytes and nutrition. Carbohydrate controlled, low- cholesterol diet. 9. Deep venous thrombosis prophylaxis. lovenox 10. Gastrointestinal prophylaxis. Histamine 2 receptor blockers. PLAN: 1. Continue to monitor acute changes 2. Encourage OOB. 3. Blood transfusion will be deferred to cardiac surgery. PT/OT as per cardiac surgery Subjective 24 Hr Interval Summary Free Text/Dictation still with chest tube drainage. Pain controlled. Exam/Review of Systems Vital Signs Vitals Vital Signs Date Time Temp Pulse Resp B/P Pulse Ox O2 Delivery O2 Flow Rate FiO2 04/10/17 11:56 98.1 94 17 108/56 95 04/10/17 01:43 2.0 04/08/17 19:00 Nasal Cannula 04/06/17 17:15 40 Intake and Output 04/09/17 04/09/17 04/10/17 15:00 23:00 07:00 Intake Total 100 ml 120 ml Output Total 340 ml Balance 100 ml -220 ml Exam nad, seem ambulating to toilet chest tube collection system with serosang contents lungs clear abd soft no rashes Results Result Diagram: 04/10/1725 04/10/17 0625 Results 24 hrs Laboratory Tests Test 04/09/17 12:35 04/09/17 17:33 04/09/17 20:10 04/10/17 01:11 Bedside Glucose 209 195 211 159 Test 04/10/17 05:36 04/10/17 06:25 04/10/17 09:02 Bedside Glucose 125 281 H White Blood Count 9.1 Red Blood Count 2.94 L Hemoglobin 8.5 L Hematocrit 26.0 L Mean Corpuscular Volume 88.4 Mean Corpuscular Hemoglobin 28.9 L Mean Corpuscular Hemoglobin Concent 32.7 Red Cell Distribution Width 14.7 H Platelet Count 168 # Mean Platelet Volume 10.8 H Neutrophils % 57.8 Lymphocytes % 27.9 Monocytes % 10.3 Eosinophils % 3.0 Basophils % 0.3 Nucleated Red Blood Cells % 0.2 H Neutrophils # 5.3 Lymphocytes # 2.6 Monocytes # 0.9 Eosinophils # 0.3 Basophils # 0.0 Nucleated Red Blood Cells # 0.0 Sodium Level 142 Potassium Level 4.8 Chloride Level 103 Carbon Dioxide Level 28 Anion Gap 16 Blood Urea Nitrogen 10 Creatinine 0.60 Glucose Level 118 # Calcium Level 9.0 Magnesium Level 2.2 Medications Medications Current Medications Gabapentin (Neurontin) 100 mg BID PO Last administered on 04/10/17 08:59; Admin Dose 100 MG; Start 03/31/17 at 21:00 Fish Oil (Fish Oil) 2,000 mg BID PO Last administered on 04/10/17 08:59; Admin Dose 2,000 MG; Start 03/31/17 at 21:00 Atorvastatin Calcium (Lipitor) 40 mg HS PO Last administered on 04/09/17 20:11 ; Admin Dose 40 MG; Start 03/31/17 at 21:00 Hydromorphone HCl (Dilaudid) 0.2 mg Q15M PRN IV PAIN LEVEL 1-5 Last administered on 04/07/17 23:52; Admin Dose 0.2 MG; Start 04/06/17 at 12:30 Hydromorphone HCl (Dilaudid) 0.4 mg Q15M PRN IV PAIN LEVEL 6-10 Last administered on 04/06/17 19:58; Admin Dose 0.4 MG; Start 04/06/17 at 12:30 Oxycodone/ Acetaminophen (Percocet (5/ 325)) 1 tab Q3H PRN PO PAIN LEVEL 1-5 Last administered on 04/10/17 09:06; Admin Dose 1 TAB; Start 04/06/17 at 12:30 Oxycodone/ Acetaminophen (Percocet (5/ 325)) 2 tab Q3H PRN PO PAIN LEVEL 6-10 Last administered on 04/08/17 20:18; Admin Dose 2 TAB; Start 04/06/17 at 12:30 Ondansetron HCl (Zofran Inj) 4 mg Q6H PRN IV NAUSEA AND/OR VOMITING; Start at 12:30 Famotidine (Pepcid Iv) 20 mg BID@08,20 IV Last administered on 04/10/17 09:00 ; Admin Dose 20 MG; Start 04/06/17 at 20:00 Aspirin (Aspirin) 325 mg DAILY PO Last administered on 04/10/17 08:59; Admin Dose 325 MG; Start 04/06/17 at 19:00 Acetaminophen (Tylenol Tab) 650 mg Q3H PRN PO ELEVATED TEMPERATURE; Start 04/06 at 12:30 Acetaminophen 650 mg 650 mg Q3H PRN [place] ELEVATED TEMPERATURE Last administered on 04/06/17 17:47; Admin Dose 650 MG; Start 04/06/17 at 12:30 Magnesium Sulfate/ Dextrose 100 ml @ 100 mls/hr PRN PRN IVPB PENDING LAB VALUE ; Start 04/06/17 at 12:30 Ferric Sodium Gluconate Complex/ Sodium Chloride (Ferrlecit/NS) 110 ml @ 110 mls/hr Q24H IVPB Last administered on 04/10/17 11:08; Admin Dose 110 MLS/HR; Start 04/07/17 at 10:00; Stop 04/11/17 at 10:59 Insulin Aspart (Novolog Insulin Pen) NOVOLOG *MILD* ALGORI... Q4 SC Last administered on 04/10/17 09:09; Admin Dose 4 UNIT; Start 04/08/17 at 05:00 Miscellaneous Information 1 ea NOTE XX ; Start 04/08/17 at 05:00 Glucose (Glutose) 15 gm Q15M PRN PO DECREASED GLUCOSE; Start 04/08/17 at 05:00 Glucose (Glutose) 22.5 gm Q15M PRN PO DECREASED GLUCOSE; Start 04/08/17 at 05: 00 Dextrose (D50w Syringe) 25 ml Q15M PRN IV DECREASED GLUCOSE; Start 04/08/17 at 05:00 Dextrose (D50w Syringe) 50 ml Q15M PRN IV DECREASED GLUCOSE; Start 04/08/17 at 05:00 Glucagon (Glucagen) 1 mg Q15M PRN IM DECREASED GLUCOSE; Start 04/08/17 at 05:00 Glucose (Glutose) 15 gm Q15M PRN BUCCAL DECREASED GLUCOSE; Start 04/08/17 at 05 :00 Enoxaparin Sodium (Lovenox) 40 mg DAILY SC Last administered on 04/10/17 09:04 ; Admin Dose 40 MG; Start 04/08/17 at 09:00 Insulin Glargine (Lantus) 14 unit DAILY@20 SC Last administered on 04/09/17 20 :18; Admin Dose 14 UNIT; Start 04/08/17 at 09:00 Docusate Sodium (Colace) 100 mg DAILY PO Last administered on 04/10/17 08:59; Admin Dose 100 MG; Start 04/09/17 at 09:00 Bisacodyl (Dulcolax Supp) 10 mg DAILY PRN [place] CONSTIPATION Last administered on 04/10/17 05:39; Admin Dose 10 MG; Start 04/09/17 at 07:30 Benzonatate (Tessalon) 100 mg TID PRN PO C[place] Last administered on 04/10/17 11:08; Admin Dose 100 MG; Start 04/09/17 at 17:30 BRI WRIGHT MD Apr 10, 2017 12:00 BRI WRIGHT MD Apr 10, 2017 12:00
--- NOTE | 2017-04-10 14:38 | CONS ---
Date/Time of Note Date/Time of Note DATE: 04/10/17 TIME: 14:36 Assessment/Plan Assessment/Plan Chief Complaint/Hosp Course IMPRESSION: 1. Acute myocardial infarction, non-ST elevation myocardial infarction downtrending cardiac enzymes currently.. Now POD#2 s/p LHC revealing 100% LCX with LL collateral and high grade LAD ostial/RCA mid/PDA stenosis/LVEF 40/no sig now POD#4 s/p cabg(brownlee-lad, svg-pda/om/diag) 2. Abnormal electrocardiogram with left bundle branch block pattern in the setting of acute myocardial infarction. 3. Chest pain secondary to #1. 4. Hypotension-improved 5. Dyslipidemia. 6. Hypothyroidism. 7. Diabetes mellitus. 8. Cardiomyopathy-decreased LVEF-mild to moderately 9. Anemia-improving Recc: -Tele -Follow volume status closely and will give dose of lasix -Continue asa -Continue fish oil//statin -start low dose BB as tolerated -Follow output of drains -ambulate Problems: Consultation Date/Type/Reason Admit Date/Time Mar 31, 2017 at 17:02 Initial Consult Date 03/31/2017 Type of Consultation: Cardiology Reason for Consultation nstemi s/p cabg Referring Provider: CATHY SANTANA Exam/Review of Systems Vital Signs Vitals Vital Signs Date Time Temp Pulse Resp B/P Pulse Ox O2 Delivery O2 Flow Rate FiO2 04/10/17 12:38 90 04/10/17 11:56 98.1 17 108/56 95 04/10/17 01:43 2.0 04/08/17 19:00 Nasal Cannula 04/06/17 17:15 40 Intake and Output 04/09/17 04/09/17 04/10/17 15:00 23:00 07:00 Intake Total 100 ml 120 ml Output Total 340 ml Balance 100 ml -220 ml Exam Review of Systems: CONSTITUTIONAL: No fevers, chills. PULMONARY: No sob CARDIOVASCULAR: Pain at sternotomy site GASTROINTESTINAL: No nausea/vomiting. GENITOURINARY: No hematuria/dysuria. MUSCULOSKELETAL: No myagias/arthalgias. PSYCHIATRIC: The patient denies depression. NEUROLOGIC: No weakness Constitutional: alert Psych: no complaints Head: normocephalic ENMT: mucosa pink and moist Neck: jvd, supple Respiratory: diminished breath sounds (at bases/B) Cardiovascular: other (median sternotmy healing c/d/i), regular rate and rhythm Gastrointestinal: non-tender, soft Musculoskeletal: muscle tone (normal) Extremities: edema (trace/B) Neurological: other (No focal deficits) Results Result Diagram: 04/10/17 0625 04/10/17 0625 Results 24 hrs Laboratory Tests Test 04/09/17 17:33 04/09/17 20:10 04/10/17 01:11 04/10/17 05:36 Bedside Glucose 195 211 159 125 Test 04/10/17 06:25 04/10/17 09:02 04/10/17 12:30 White Blood Count 9.1 Red Blood Count 2.94 L Hemoglobin 8.5 L Hematocrit 26.0 L Mean Corpuscular Volume 88.4 Mean Corpuscular Hemoglobin 28.9 L Mean Corpuscular Hemoglobin Concent 32.7 Red Cell Distribution Width 14.7 H Platelet Count 168 # Mean Platelet Volume 10.8 H Neutrophils % 57.8 Lymphocytes % 27.9 Monocytes % 10.3 Eosinophils % 3.0 Basophils % 0.3 Nucleated Red Blood Cells % 0.2 H Neutrophils # 5.3 Lymphocytes # 2.6 Monocytes # 0.9 Eosinophils # 0.3 Basophils # 0.0 Nucleated Red Blood Cells # 0.0 Sodium Level 142 Potassium Level 4.8 Chloride Level 103 Carbon Dioxide Level 28 Anion Gap 16 Blood Urea Nitrogen 10 Creatinine 0.60 Glucose Level 118 # Calcium Level 9.0 Magnesium Level 2.2 Bedside Glucose 281 H 214 Medications Medications Current Medications Gabapentin (Neurontin) 100 mg BID PO Last administered on 04/10/17 08:59; Admin Dose 100 MG; Start 03/31/17 at 21:00 Fish Oil (Fish Oil) 2,000 mg BID PO Last administered on 04/10/17 08:59; Admin Dose 2,000 MG; Start 03/31/17 at 21:00 Atorvastatin Calcium (Lipitor) 40 mg HS PO Last administered on 04/09/17 20:11 ; Admin Dose 40 MG; Start 03/31/17 at 21:00 Hydromorphone HCl (Dilaudid) 0.2 mg Q15M PRN IV PAIN LEVEL 1-5 Last administered on 04/07/17 23:52; Admin Dose 0.2 MG; Start 04/06/17 at 12:30 Hydromorphone HCl (Dilaudid) 0.4 mg Q15M PRN IV PAIN LEVEL 6-10 Last administered on 04/06/17 19:58; Admin Dose 0.4 MG; Start 04/06/17 at 12:30 Oxycodone/ Acetaminophen (Percocet (5/ 325)) 1 tab Q3H PRN PO PAIN LEVEL 1-5 Last administered on 04/10/17 09:06; Admin Dose 1 TAB; Start 04/06/17 at 12:30 Oxycodone/ Acetaminophen (Percocet (5/ 325)) 2 tab Q3H PRN PO PAIN LEVEL 6-10 Last administered on 04/08/17 20:18; Admin Dose 2 TAB; Start 04/06/17 at 12:30 Ondansetron HCl (Zofran Inj) 4 mg Q6H PRN IV NAUSEA AND/OR VOMITING; Start at 12:30 Famotidine (Pepcid Iv) 20 mg BID@08,20 IV Last administered on 04/10/17 09:00 ; Admin Dose 20 MG; Start 04/06/17 at 20:00 Aspirin (Aspirin) 325 mg DAILY PO Last administered on 04/10/17 08:59; Admin Dose 325 MG; Start 04/06/17 at 19:00 Acetaminophen (Tylenol Tab) 650 mg Q3H PRN PO ELEVATED TEMPERATURE; Start 04/06 at 12:30 Acetaminophen 650 mg 650 mg Q3H PRN IN ELEVATED TEMPERATURE Last administered on 04/06/17 17:47; Admin Dose 650 MG; Start 04/06/17 at 12:30 Magnesium Sulfate/ Dextrose 100 ml @ 100 mls/hr PRN PRN IVPB PENDING LAB VALUE ; Start 04/06/17 at 12:30 Ferric Sodium Gluconate Complex/ Sodium Chloride (Ferrlecit/NS) 110 ml @ 110 mls/hr Q24H IVPB Last administered on 04/10/17 11:08; Admin Dose 110 MLS/HR; Start 04/07/17 at 10:00; Stop 04/11/17 at 10:59 Insulin Aspart (Novolog Insulin Pen) NOVOLOG *MILD* ALGORI... Q4 SC Last administered on 04/10/17 12:37; Admin Dose 2 UNIT; Start 04/08/17 at 05:00 Miscellaneous Information 1 ea NOTE XX ; Start 04/08/17 at 05:00 Glucose (Glutose) 15 gm Q15M PRN PO DECREASED GLUCOSE; Start 04/08/17 at 05:00 Glucose (Glutose) 22.5 gm Q15M PRN PO DECREASED GLUCOSE; Start 04/08/17 at 05: 00 Dextrose (D50w Syringe) 25 ml Q15M PRN IV DECREASED GLUCOSE; Start 04/08/17 at 05:00 Dextrose (D50w Syringe) 50 ml Q15M PRN IV DECREASED GLUCOSE; Start 04/08/17 at 05:00 Glucagon (Glucagen) 1 mg Q15M PRN IM DECREASED GLUCOSE; Start 04/08/17 at 05:00 Glucose (Glutose) 15 gm Q15M PRN BUCCAL DECREASED GLUCOSE; Start 04/08/17 at 05 :00 Enoxaparin Sodium (Lovenox) 40 mg DAILY SC Last administered on 04/10/17 09:04 ; Admin Dose 40 MG; Start 04/08/17 at 09:00 Insulin Glargine (Lantus) 14 unit DAILY@20 SC Last administered on 04/09/17 20 :18; Admin Dose 14 UNIT; Start 04/08/17 at 09:00 Docusate Sodium (Colace) 100 mg DAILY PO Last administered on 04/10/17 08:59; Admin Dose 100 MG; Start 04/09/17 at 09:00 Bisacodyl (Dulcolax Supp) 10 mg DAILY PRN IN CONSTIPATION Last administered on 04/10/17 05:39; Admin Dose 10 MG; Start 04/09/17 at 07:30 Benzonatate (Tessalon) 100 mg TID PRN PO Cough Last administered on 04/10/17 11:08; Admin Dose 100 MG; Start 04/09/17 at 17:30 KIRSTIN GERONIMO Apr 10, 2017 14:38
[2017-04-10] MEDS ORDERED: FUROSEMIDE 20 MG INJ IV ONE (15:00)
[2017-04-10] MEDS: ATORVASTATIN 40 MG TAB PO SCH (20:11)
[2017-04-10] MEDS: INSULIN GLARGINE [LANtus] 3 ML PEN SC SCH (20:15)
[2017-04-10] MEDS: METOPROLOL 25 MG TAB PO SCH (21:37)
[2017-04-11] VITALS (12 sets, daily range): BP systolic 124–139; BP diastolic 60–66; PULSE 86–110; RESP 18–21
[2017-04-11] MEDS: INSULIN ASPART [NOVOLOG] 3 ML PEN SC SCH ×6 (00:54→20:38)
[2017-04-11] MEDS: BENZONATATE 100 MG CAP PO PRN ×2 (05:37→22:49)
[2017-04-11] MEDS: OXYCODONE/ACETAMINOPHEN (5/325) TAB PO PRN ×3 (05:41→22:15)
[2017-04-11] MEDS: LEVOTHYROXINE 25 MCG TAB PO SCH (06:42)
[2017-04-11] MEDS: GABAPENTIN 100 MG CAP PO SCH ×2 (08:28→20:27)
[2017-04-11] MEDS: FISH OIL 1,000 MG CAP PO SCH ×2 (08:28→20:27)
[2017-04-11] MEDS: DOCUSATE SODIUM 100 MG CAP PO SCH (08:28)
[2017-04-11] MEDS: ASPIRIN 325 MG TAB PO SCH (08:28)
[2017-04-11] MEDS: FAMOTIDINE 20 MG TAB PO SCH ×2 (08:29→20:28)
[2017-04-11] MEDS: METOPROLOL 25 MG TAB PO SCH ×2 (08:30→20:28)
[2017-04-11] MEDS: ENOXAPARIN 40 MG/0.4 ML SYG SC SCH (08:33)
[2017-04-11] MEDS: SOD FERRIC GLUC COMPLX 125 MG in SOD CHLORIDE 0.9% 100 ML IVPB SCH (09:29)
--- NOTE | 2017-04-11 09:56 | PN ---
Date/Time of Note Date/Time of Note DATE: 04/11/17 TIME: 09:30 Assessment/Plan VTE Prophylaxis VTE Prophylaxis Intervention: LMWH Lines/Catheters IV Catheter Type (from [facility]): Saline Lock Urinary Cath still in place: No Assessment/Plan Assessment/Plan 71 yo F with pmhx CAD admitted for NSTEMI, found to have multi vessel disease on C 04.03. Now sp CABG 04.06 1. Non-ST elevation myocardial infarction. Status post left heart catheterization on 04/03/2017 that showed multivessel coronary artery disease. Status post CABG 04/06/2017. - f/u CT surg recs, ambulation, pain management 2. Acute blood loss anemia - transfuse as per CT surg recs, s/p 1 unit PRBCs 3. Dyslipidemia. statin 4. Type 2 diabetes mellitus. Hemoglobin A1c 7.7. The patient will be continued on Lantus insulin along with sliding scale insulin. 5. Hypothyroidism. Continue Synthroid. 6. Essential hypertension. Continue antihypertensives. 7. Normocytic, normochromic anemia. Patient was started on IV iron supplements by cardiac surgery. Blood transfusion will be deferred to cardiac surgery. 8. Fluid, electrolytes and nutrition. Carbohydrate controlled, low- cholesterol diet. 9. Deep venous thrombosis prophylaxis. lovenox 10. Gastrointestinal prophylaxis. Histamine 2 receptor blockers. PLAN: 1. Continue to monitor for acute changes 2. Encourage OOB. 3. drain still in place from surgery, f/u recs 4. Scheduled bronchodilator therapy Subjective 24 Hr Interval Summary Free Text/Dictation c/o painful cough relieved by breathing treatment Exam/Review of Systems Vital Signs Vitals Vital Signs Date Time Temp Pulse Resp B/P Pulse Ox O2 Delivery O2 Flow Rate FiO2 04/11/17 07:22 98.2 97 19 127/63 97 04/11/17 06:34 2.0 04/10/17 16:36 Nasal Cannula Intake and Output 04/10/17 04/10/17 04/11/17 15:00 23:00 07:00 Intake Total 120 ml Output Total 720 ml Balance -600 ml Exam Constitutional: alert, oriented Psych: nl mood/affect Head: normocephalic Eyes: EOMI Neck: supple Respiratory: diminished breath sounds, wheezing (occ L sided), No crackles/rales Cardiovascular: regular rate and rhythm, No murmurs/extra sounds Gastrointestinal: bowel sounds, non-tender, soft Extremities: edema Neurological: nl mental status, other (ambulant) Results Result Diagram: 04/10/17 0625 04/10/17 0625 Results 24 hrs Laboratory Tests Test 04/10/17 12:30 04/10/17 17:38 04/10/17 20:09 04/11/17 00:53 Bedside Glucose 214 196 235 H 136 Test 04/11/17 05:41 04/11/17 08:24 Bedside Glucose 143 154 Medications Medications Current Medications Gabapentin (Neurontin) 100 mg BID PO Last administered on 04/11/17 08:28; Admin Dose 100 MG; Start 03/31/17 at 21:00 Fish Oil (Fish Oil) 2,000 mg BID PO Last administered on 04/11/17 08:28; Admin Dose 2,000 MG; Start 03/31/17 at 21:00 Atorvastatin Calcium (Lipitor) 40 mg HS PO Last administered on 04/10/17 20:11 ; Admin Dose 40 MG; Start 03/31/17 at 21:00 Hydromorphone HCl (Dilaudid) 0.2 mg Q15M PRN IV PAIN LEVEL 1-5 Last administered on 04/07/17 23:52; Admin Dose 0.2 MG; Start 04/06/17 at 12:30 Hydromorphone HCl (Dilaudid) 0.4 mg Q15M PRN IV PAIN LEVEL 6-10 Last administered on 04/06/17 19:58; Admin Dose 0.4 MG; Start 04/06/17 at 12:30 Oxycodone/ Acetaminophen (Percocet (5/ 325)) 1 tab Q3H PRN PO PAIN LEVEL 1-5 Last administered on 04/11/17 05:41; Admin Dose 1 TAB; Start 04/06/17 at 12:30 Oxycodone/ Acetaminophen (Percocet (5/ 325)) 2 tab Q3H PRN PO PAIN LEVEL 6-10 Last administered on 04/08/17 20:18; Admin Dose 2 TAB; Start 04/06/17 at 12:30 Ondansetron HCl (Zofran Inj) 4 mg Q6H PRN IV NAUSEA AND/OR VOMITING; Start at 12:30 Aspirin (Aspirin) 325 mg DAILY PO Last administered on 04/11/17 08:28; Admin Dose 325 MG; Start 04/06/17 at 19:00 Acetaminophen (Tylenol Tab) 650 mg Q3H PRN PO ELEVATED TEMPERATURE; Start 04/06 at 12:30 Acetaminophen 650 mg 650 mg Q3H PRN DC ELEVATED TEMPERATURE Last administered on 04/06/17 17:47; Admin Dose 650 MG; Start 04/06/17 at 12:30 Magnesium Sulfate/ Dextrose 100 ml @ 100 mls/hr PRN PRN IVPB PENDING LAB VALUE ; Start 04/06/17 at 12:30 Ferric Sodium Gluconate Complex/ Sodium Chloride (Ferrlecit/NS) 110 ml @ 110 mls/hr Q24H IVPB Last administered on 04/11/17 09:29; Admin Dose 110 MLS/HR; Start 04/07/17 at 10:00; Stop 04/11/17 at 10:59 Insulin Aspart (Novolog Insulin Pen) NOVOLOG *MILD* ALGORI... Q4 SC Last administered on 04/11/17 08:34; Admin Dose 1 UNIT; Start 04/08/17 at 05:00 Miscellaneous Information 1 ea NOTE XX ; Start 04/08/17 at 05:00 Glucose (Glutose) 15 gm Q15M PRN PO DECREASED GLUCOSE; Start 04/08/17 at 05:00 Glucose (Glutose) 22.5 gm Q15M PRN PO DECREASED GLUCOSE; Start 04/08/17 at 05: 00 Dextrose (D50w Syringe) 25 ml Q15M PRN IV DECREASED GLUCOSE; Start 04/08/17 at 05:00 Dextrose (D50w Syringe) 50 ml Q15M PRN IV DECREASED GLUCOSE; Start 04/08/17 at 05:00 Glucagon (Glucagen) 1 mg Q15M PRN IM DECREASED GLUCOSE; Start 04/08/17 at 05:00 Glucose (Glutose) 15 gm Q15M PRN BUCCAL DECREASED GLUCOSE; Start 04/08/17 at 05 :00 Enoxaparin Sodium (Lovenox) 40 mg DAILY SC Last administered on 04/11/17 08:33 ; Admin Dose 40 MG; Start 04/08/17 at 09:00 Insulin Glargine (Lantus) 14 unit DAILY@20 SC Last administered on 04/10/17 20 :15; Admin Dose 14 UNIT; Start 04/08/17 at 09:00 Docusate Sodium (Colace) 100 mg DAILY PO Last administered on 04/11/17 08:28; Admin Dose 100 MG; Start 04/09/17 at 09:00 Bisacodyl (Dulcolax Supp) 10 mg DAILY PRN DC CONSTIPATION Last administered on 04/10/17 05:39; Admin Dose 10 MG; Start 04/09/17 at 07:30 Benzonatate (Tessalon) 100 mg TID PRN PO Cough Last administered on 04/11/17 05:37; Admin Dose 100 MG; Start 04/09/17 at 17:30 Metoprolol Tartrate (Lopressor) 12.5 mg BID PO Last administered on 04/11/17 08:30; Admin Dose 12.5 MG; Start 04/10/17 at 21:00 Famotidine (Pepcid) 20 mg BID PO Last administered on 04/11/17 08:29; Admin Dose 20 MG; Start 04/11/17 at 09:00 Procedures Procedures PROCEDURE: XR Chest 1 view. CLINICAL INDICATION: Shortness of breath. TECHNIQUE: AP views of the chest were obtained. COMPARISON: April 06, 2017 FINDINGS: The heart is large. Calcified atherosclerosis is noted in the aorta. Mediastinal drain overlies the heart. Median sternotomy wires overlie the heart. Left-sided chest tube is stable. No pneumothorax as visualized. Scattered atelectasis is identified in the left lower lobe. No consolidations are identified. No pneumothorax is seen. Osseous structures are intact. IMPRESSION: Cardiomegaly with calcified atherosclerosis in the aorta. Interval extubation and Hope-Juwan catheter removal. Stable left chest tube. No visualized pneumothorax. Patchy atelectasis in the left lower lobe. RPTAT: AA .Ed Conley MD, Date Time Electronically viewed and signed by .Ed Conley MD, on 04/10/2017 10:06 .P/ CC: MO GOMEZ MD, BOLATITO M. Apr 11, 2017 09:40
[2017-04-11] MEDS: HYDROmorphONE 1 MG/ML SYG IV PRN (10:34)
--- NOTE | 2017-04-11 10:36 | PN ---
Date/Time of Note Date/Time of Note DATE: 04/11/17 TIME: 10:35 Assessment/Plan Lines/Catheters IV Catheter Type (from [facility]): Saline Lock Guzman in Place (from [facility]): No Assessment/Plan Chief Complaint/Hosp Course s/p cabg dm II acute blood loss anemia chest tubes will d/c Problems: Subjective 24 Hr Interval Summary Constitutional: BM, ambulates, shortness of breath Exam/Review of Systems Vital Signs Vitals Vital Signs Date Time Temp Pulse Resp B/P Pulse Ox O2 Delivery O2 Flow Rate FiO2 04/11/17 08:40 89 04/11/17 07:22 98.2 19 127/63 97 04/11/17 06:34 2.0 04/10/17 16:36 Nasal Cannula Intake and Output 04/10/17 04/10/17 04/11/17 15:00 23:00 07:00 Intake Total 120 ml Output Total 720 ml Balance -600 ml Exam Eyes: nl conjunctiva Neck: supple Respiratory: other (tubes 1350 cc total 150 cc/24) Cardiovascular: regular rate and rhythm Musculoskeletal: nl extremities to inspection Results Result Diagram: 04/10/17 0625 04/10/17 0625 MO GOMEZ MD Apr 11, 2017 10:36
--- NOTE | 2017-04-11 13:52 | CONS ---
Date/Time of Note Date/Time of Note DATE: 04/11/17 TIME: 13:50 Assessment/Plan Assessment/Plan Chief Complaint/Hosp Course IMPRESSION: 1. Acute myocardial infarction, non-ST elevation myocardial infarction downtrending cardiac enzymes currently.. Now POD#2 s/p LHC revealing 100% LCX with LL collateral and high grade LAD ostial/RCA mid/PDA stenosis/LVEF 40/no sig now POD#4 s/p cabg(brownlee-lad, svg-pda/om/diag) 2. Abnormal electrocardiogram with left bundle branch block pattern in the setting of acute myocardial infarction. 3. Chest pain secondary to #1.now s/p cabg 4. Hypotension-improved 5. Dyslipidemia. 6. Hypothyroidism. 7. Diabetes mellitus. 8. Cardiomyopathy-decreased LVEF-mild to moderately 9. Anemia-improving Recc: -Tele -Follow volume status closely and will give dose of lasix -Continue asa -Continue fish oil//statin -Continue low dose BB as tolerated -s/p removal of drains -ambulate Problems: Consultation Date/Type/Reason Admit Date/Time Mar 31, 2017 at 17:02 Initial Consult Date 03/31/2017 Type of Consultation: Cardiology Reason for Consultation Acute RI Referring Provider: CATHY SANTANA Exam/Review of Systems Vital Signs Vitals Vital Signs Date Time Temp Pulse Resp B/P Pulse Ox O2 Delivery O2 Flow Rate FiO2 04/11/17 11:33 97.6 86 19 128/66 99 04/11/17 06:34 2.0 04/10/17 16:36 Nasal Cannula Intake and Output 04/10/17 04/10/17 04/11/17 15:00 23:00 07:00 Intake Total 120 ml Output Total 720 ml Balance -600 ml Exam Review of Systems: CONSTITUTIONAL: No fevers, chills. PULMONARY: No sob CARDIOVASCULAR: No chest pain/palpitations GASTROINTESTINAL: No nausea/vomiting. GENITOURINARY: No hematuria/dysuria. MUSCULOSKELETAL: No myagias/arthalgias. PSYCHIATRIC: The patient denies depression. NEUROLOGIC: No weakness Constitutional: alert, oriented Psych: no complaints ENMT: mucosa pink and moist Neck: jvd (9 cm water), supple Respiratory: diminished breath sounds (at bases/B) Cardiovascular: other (MEDIAN STERNOTOMY), regular rate and rhythm Gastrointestinal: non-tender, soft Musculoskeletal: muscle tone (normaL) Extremities: edema (NONE) Neurological: other (No focal deficits) Results Result Diagram: 04/10/17 0625 04/10/17 0625 Results 24 hrs Laboratory Tests Test 04/10/17 17:38 04/10/17 20:09 04/11/17 00:53 04/11/17 05:41 Bedside Glucose 196 235 H 136 143 Test 04/11/17 08:24 04/11/17 12:27 Bedside Glucose 154 152 Medications Medications Current Medications Gabapentin (Neurontin) 100 mg BID PO Last administered on 04/11/17 08:28; Admin Dose 100 MG; Start 03/31/17 at 21:00 Fish Oil (Fish Oil) 2,000 mg BID PO Last administered on 04/11/17 08:28; Admin Dose 2,000 MG; Start 03/31/17 at 21:00 Atorvastatin Calcium (Lipitor) 40 mg HS PO Last administered on 04/10/17 20:11 ; Admin Dose 40 MG; Start 03/31/17 at 21:00 Hydromorphone HCl (Dilaudid) 0.2 mg Q15M PRN IV PAIN LEVEL 1-5 Last administered on 04/07/17 23:52; Admin Dose 0.2 MG; Start 04/06/17 at 12:30 Hydromorphone HCl (Dilaudid) 0.4 mg Q15M PRN IV PAIN LEVEL 6-10 Last administered on 04/11/17 10:34; Admin Dose 0.4 MG; Start 04/06/17 at 12:30 Oxycodone/ Acetaminophen (Percocet (5/ 325)) 1 tab Q3H PRN PO PAIN LEVEL 1-5 Last administered on 04/11/17 05:41; Admin Dose 1 TAB; Start 04/06/17 at 12:30 Oxycodone/ Acetaminophen (Percocet (5/ 325)) 2 tab Q3H PRN PO PAIN LEVEL 6-10 Last administered on 04/08/17 20:18; Admin Dose 2 TAB; Start 04/06/17 at 12:30 Ondansetron HCl (Zofran Inj) 4 mg Q6H PRN IV NAUSEA AND/OR VOMITING; Start at 12:30 Aspirin (Aspirin) 325 mg DAILY PO Last administered on 04/11/17 08:28; Admin Dose 325 MG; Start 04/06/17 at 19:00 Acetaminophen (Tylenol Tab) 650 mg Q3H PRN PO ELEVATED TEMPERATURE; Start 04/06 at 12:30 Acetaminophen 650 mg 650 mg Q3H PRN AL ELEVATED TEMPERATURE Last administered on 04/06/17 17:47; Admin Dose 650 MG; Start 04/06/17 at 12:30 Magnesium Sulfate/ Dextrose (Magnesium Sulfate 1 Gm/D5W) 100 ml @ 100 mls/hr PRN PRN IVPB PENDING LAB VALUE; Start 04/06/17 at 12:30 Insulin Aspart (Novolog Insulin Pen) NOVOLOG *MILD* ALGORI... Q4 SC Last administered on 04/11/17 12:38; Admin Dose 1 UNIT; Start 04/08/17 at 05:00 Miscellaneous Information 1 ea NOTE XX ; Start 04/08/17 at 05:00 Glucose (Glutose) 15 gm Q15M PRN PO DECREASED GLUCOSE; Start 04/08/17 at 05:00 Glucose (Glutose) 22.5 gm Q15M PRN PO DECREASED GLUCOSE; Start 04/08/17 at 05: 00 Dextrose (D50w Syringe) 25 ml Q15M PRN IV DECREASED GLUCOSE; Start 04/08/17 at 05:00 Dextrose (D50w Syringe) 50 ml Q15M PRN IV DECREASED GLUCOSE; Start 04/08/17 at 05:00 Glucagon (Glucagen) 1 mg Q15M PRN IM DECREASED GLUCOSE; Start 04/08/17 at 05:00 Glucose (Glutose) 15 gm Q15M PRN BUCCAL DECREASED GLUCOSE; Start 04/08/17 at 05 :00 Enoxaparin Sodium (Lovenox) 40 mg DAILY SC Last administered on 04/11/17 08:33 ; Admin Dose 40 MG; Start 04/08/17 at 09:00 Insulin Glargine (Lantus) 14 unit DAILY@20 SC Last administered on 04/10/17 20 :15; Admin Dose 14 UNIT; Start 04/08/17 at 09:00 Docusate Sodium (Colace) 100 mg DAILY PO Last administered on 04/11/17 08:28; Admin Dose 100 MG; Start 04/09/17 at 09:00 Bisacodyl (Dulcolax Supp) 10 mg DAILY PRN AL CONSTIPATION Last administered on 04/10/17 05:39; Admin Dose 10 MG; Start 04/09/17 at 07:30 Benzonatate (Tessalon) 100 mg TID PRN PO Cough Last administered on 04/11/17 05:37; Admin Dose 100 MG; Start 04/09/17 at 17:30 Metoprolol Tartrate (Lopressor) 12.5 mg BID PO Last administered on 04/11/17 08:30; Admin Dose 12.5 MG; Start 04/10/17 at 21:00 Famotidine (Pepcid) 20 mg BID PO Last administered on 04/11/17 08:29; Admin Dose 20 MG; Start 04/11/17 at 09:00 KIRSTIN GERONIMO Apr 11, 2017 13:52
[2017-04-11] MEDS: BISACODYL 10 MG SUPP PR PRN (17:51)
[2017-04-11] MEDS: ALBUTEROL 0.083% (NEB) 2.5 MG/3 ML AMP HHN SCH ×2 (17:55→22:11)
[2017-04-11] MEDS: ATORVASTATIN 40 MG TAB PO SCH (20:27)
[2017-04-11] MEDS: INSULIN GLARGINE [LANtus] 3 ML PEN SC SCH (20:38)
[2017-04-11] MEDS ORDERED: HYPOGLYCEMIA PROTOCOL when Glucose is <70 mg/dL or symptomatic <90 mg/dL. XX ONE (21:30)
[2017-04-11] MEDS ORDERED: DEXTROSE 50% 50 ML SYRINGE IV PRN ×2 (21:30)
[2017-04-11] MEDS ORDERED: Discontinue Glyburide, Glipizide, and/or Glimepiride prior to starting Insulin XX ONE (21:30)
[2017-04-11] MEDS ORDERED: GLUCOSE GEL 15 GRAM TUBE PO PRN ×2 (21:30)
[2017-04-11] MEDS ORDERED: GLUCAGON 1 MG INJ IM PRN (21:30)
[2017-04-11] MEDS ORDERED: GLUCOSE GEL 15 GRAM TUBE BUCCAL PRN (21:30)
[2017-04-12] VITALS (10 sets, daily range): BP systolic 101–164; BP diastolic 57–75; PULSE 95–117; RESP 18–20
[2017-04-12] MEDS ORDERED: ACCU-CHEK XX SCH ×2 (02:00)
[2017-04-12] MEDS: ALBUTEROL 0.083% (NEB) 2.5 MG/3 ML AMP HHN SCH ×3 (02:00→14:18)
[2017-04-12 06:14] LABS: ADD SCAN DIFF NO
[2017-04-12 06:20] LABS: BASOPHILS % 0.3 % (0.0-2.0); EOSINOPHILS # 0.3 10^3/ul (0.0-0.5); EOSINOPHILS % 3.1 % (0.0-7.0); HEMATOCRIT 26.2 % (37.0-47.0); HEMOGLOBIN 8.4 g/dl (12.0-16.0); LYMPHOCYTES # 2.7 10^3/ul (0.8-2.9); LYMPHOCYTES % 28.2 % (15.0-51.0); MEAN CORPUSCULAR HEMOGLOBIN 29.3 pg (29.0-33.0); MEAN CORPUSCULAR HGB CONC 32.1 g/dl (32.0-37.0); MEAN CORPUSCULAR VOLUME 91.3 fl (82.0-101.0); MEAN PLATELET VOLUME 9.8 fl (7.4-10.4); MONOCYTE # 0.9 10^3/ul (0.3-0.9); MONOCYTES % 9.8 % (0.0-11.0); NEUTROPHIL # 5.4 10^3/ul (1.6-7.5); NEUTROPHILS % 57.4 % (39.0-77.0); NUCLEATED RED BLOOD CELLS% 0.4 /100WBC (0.0-0.0); PLATELET COUNT 247 10^3/UL (140-415); RED BLOOD COUNT 2.87 10^6/ul (4.20-5.40); RED CELL DISTRIBUTION WIDTH 14.8 % (11.5-14.5); WHITE BLOOD COUNT 9.5 10^3/ul (4.8-10.8)
[2017-04-12] MEDS: LEVOTHYROXINE 25 MCG TAB PO SCH (06:25)
[2017-04-12 06:54] LABS: CALCIUM 8.7 mg/dl (8.4-10.2); CREATININE 0.67 mg/dl (0.44-1.00); MAGNESIUM 2.2 mg/dl (1.7-2.5); POTASSIUM 4.3 mmol/L (3.5-5.1)
[2017-04-12] MEDS: INSULIN ASPART [NOVOLOG] 3 ML PEN SC SCH ×2 (08:12→11:47)
--- NOTE | 2017-04-12 09:22 | PN ---
Date/Time of Note Date/Time of Note DATE: 04/12/17 TIME: 09:21 Assessment/Plan Lines/Catheters IV Catheter Type (from [facility]): Saline Lock Guzman in Place (from [facility]): No Assessment/Plan Chief Complaint/Hosp Course s/p cabg dm II acute blood loss anemia home health nurse ordered please appoint dr fong upon d/c Problems: Subjective 24 Hr Interval Summary Constitutional: ambulates, flatus, no complaints Exam/Review of Systems Vital Signs Vitals Vital Signs Date Time Temp Pulse Resp B/P Pulse Ox O2 Delivery O2 Flow Rate FiO2 04/12/17 08:35 102 04/12/17 08:20 96 21 04/12/17 08:19 20 04/12/17 07:01 98.3 164/71 04/11/17 22:11 Nasal Cannula 04/11/17 19:30 2.0 Intake and Output 04/11/17 04/11/17 04/12/17 14:59 22:59 06:59 Intake Total 800 ml 700 ml Balance 800 ml 700 ml Exam Head: normocephalic Neck: supple Respiratory: clear to auscultation Cardiovascular: regular rate and rhythm Results Result Diagram: 04/12/17 0520 04/12/17 0520 MO GOMEZ MD Apr 12, 2017 09:22
[2017-04-12] MEDS: GABAPENTIN 100 MG CAP PO SCH (09:38)
[2017-04-12] MEDS: FAMOTIDINE 20 MG TAB PO SCH (09:38)
[2017-04-12] MEDS: FISH OIL 1,000 MG CAP PO SCH (09:38)
[2017-04-12] MEDS: ASPIRIN 325 MG TAB PO SCH (09:38)
[2017-04-12] MEDS: METOPROLOL 25 MG TAB PO SCH (09:39)
[2017-04-12] MEDS: DOCUSATE SODIUM 100 MG CAP PO SCH (09:39)
[2017-04-12] MEDS: ENOXAPARIN 40 MG/0.4 ML SYG SC SCH (09:40)
--- NOTE | 2017-04-12 10:08 | RADRPT ---
Vent Rate: 0 bpm RR Interval: 0 msec DC Interval: 0 msec QRS Duration: 0 msec QT Interval: 0 msec QTC Interval: 0 msec P-R-T Ryde: 0 - 0 - 0 degrees Electronically Signed By: Jeffy Cano [id number]
[2017-04-12] MEDS ORDERED: DOCU-216 PO (10:26)
[2017-04-12] MEDS ORDERED: METO-448 PO (10:26)
[2017-04-12] MEDS ORDERED: ASPI325T4 PO (10:26)
--- NOTE | 2017-04-12 10:41 | DS ---
Date/Time of Note Date/Time of Note DATE: 04/12/17 TIME: 10:35 Discharge Summary Admission/Discharge Info Admit Date/Time Mar 31, 2017 at 17:02 Discharge Date/Time 04/12/17. . Discharge Diagnosis 71 yo F with pmhx CAD admitted for NSTEMI, found to have multi vessel disease on [facility] 04.03. Now sp CABG 04.06 1. Non-ST elevation myocardial infarction. Status post left heart catheterization on 04/03/2017 that showed multivessel coronary artery disease. Status post CABG 04/06/2017. 2. Acute blood loss anemia 2/2 Iron deficiency s/p transfusion 3. Dyslipidemia: on Statin 4. Type 2 diabetes mellitus. Hemoglobin A1c 7.7. 5. Hypothyroidism. Continue Synthroid. 6. Essential hypertension. Continue antihypertensives. . Patient Condition: Stable Consults Cardiothoracic Surgery: Claudia Cardiology: Terry Procedures DATE OF OPERATION: 04/06/2017 PREOPERATIVE DIAGNOSES: 1. Non-ST elevation myocardial infarction. 2. Three-vessel coronary artery disease. POSTOPERATIVE DIAGNOSES: 1. Non-ST elevation myocardial infarction. 2. Three-vessel coronary artery disease. PROCEDURE PERFORMED: CABG x5, BRANHAM to LAD, SVG to PDA, SVG to obtuse marginal artery, SVG to diagonal artery #1, sequence to diagonal artery #2, endoscopic vein harvesting of the greater saphenous vein from both lower extremities, epiaortic scanning of the ascending aorta. . Home Meds Active Scripts Albuterol Sulfate (Proair Respiclick) 90 Mcg Aer.pow.ba, 2 PUFFS INHALATION Q4H WHILE AWAKE, #1 BOTTLE Prov:CATHY SANTANA. 04/12/17 Albuterol Sulfate* (Albuterol Sulfate* Neb) 0.083%-3 Ml Neb, 1.25 MG NEB Q4H Y for SHORTNESS OF BREATH, #30 VIAL Prov:CATHY SANTANA 04/12/17 Losartan Potassium* (Losartan Potassium*) 25 Mg Tablet, 12.5 MG PO DAILY for 30 Days, TAB Prov:CATHY SANTANA. 04/12/17 Docusate Sodium (Dok) 100 Mg Capsule, 100 MG PO BID for 30 Days, CAP Prov:CATHY SANTANA. 04/12/17 Aspirin (Aspirin Lite-Coat) 325 Mg Tablet, 325 MG PO DAILY for 30 Days, TAB 2 Refills Prov:CATHY SANTANA. 04/12/17 Metoprolol Tartrate* (Lopressor*) 25 Mg Tab, 12.5 MG PO BID for 30 Days, TAB 2 Refills Prov:CATHY SANTANA. 04/12/17 Reported Medications Acetaminophen* (Acetaminophen*) 500 MG Extra Strength Tablet, 1000 MG PO Q6H Y for PAIN AND OR ELEVATED TEMP, TAB 03/31/17 Fluticasone Propionate* (Fluticasone Propionate* Nasal) 50 Mcg/[place] - 16 Gm [place].susp, 1 SPRAY NASAL DAILY, #1 BOTTLE TO EACH NOSTRIL 03/31/17 Metformin Hcl* (Metformin Hcl*) 850 Mg Tablet, 850 MG PO WITH BREAKFAST DINNE, # 30 TAB 03/31/17 Gabapentin* (Gabapentin*) 100 Mg Capsule, 100 MG PO BID, #90 CAP 03/31/17 Levothyroxine Sodium* (Levoxyl*) 25 Mcg Tablet, 25 MCG PO BEFORE BREAKFAST, #30 TAB 03/31/17 Sitagliptin* (Januvia*) 100 Mg Tablet, 100 MG PO DAILY, #30 TAB 03/31/17 Rosuvastatin Calcium* (Crestor*) 10 Mg Tablet, 10 MG PO QHS, #30 TAB 03/31/17 [place]-3 Acid Ethyl Esters (Lovaza) 1 Gm Capsule, 2 GM PO BID, CAP 03/31/17 Cyclosporine (RESTASIS) 1 Each [place], 1 DROP BOTH EYES Q12, #1 BOX 03/31/17 Meclizine Hcl* (Meclizine Hcl*) 25 Mg Tablet, 25 MG PO Q8H Y for DIZZINESS, TAB 03/31/17 Colchicine* (Colcrys*) 0.6 Mg Tablet, 0.6 MG PO DAILY, TAB 03/31/17 Calcium Carbonate/Vitamin D3 (OYSTER SHELL 500 MG + VIT D TB) 1 Each Tablet, 1 EACH PO BID, TAB 03/31/17 Discontinued Reported Medications Amlodipine Besylate* (Norvasc*) 5 Mg Tablet, 5 MG PO DAILY, TAB 03/31/17 Losartan Potassium* (Losartan Potassium*) 100 Mg Tablet, 100 MG PO DAILY, TAB 03/31/17 Aspirin (Low Dose Aspirin) 81 Mg Tablet.dr, 81 MG PO DAILY, #30 TAB 03/31/17 Metoprolol Tartrate* (Lopressor*) 50 Mg Tab, 50 MG PO DAILY, #60 TAB 03/31/17 Follow-up Plan F/u with Dr Taylor per his instructions. . Primary Care Provider Carlos Manuel Tran Time spent on discharge: > 30 minutes Pending Labs Laboratory Tests Test 04/11/17 12:27 04/11/17 17:11 04/11/17 20:26 04/12/17 01:28 Bedside Glucose 152mg/dL (70-220) 174mg/dL (70-220) 205mg/dL (70-220) 173mg/dL (70-220) Test 04/12/17 05:20 04/12/17 08:03 White Blood Count 9.510^3/ul (4.8-10.8) Red Blood Count 2.8710^6/ul (4.20-5.40) Hemoglobin 8.4g/dl (12.0-16.0) Hematocrit 26.2% (37.0-47.0) Mean Corpuscular Volume 91.3fl (82.0-101.0) Mean Corpuscular Hemoglobin 29.3pg (29.0-33.0) Mean Corpuscular Hemoglobin Concent 32.1g/dl (32.0-37.0) Red Cell Distribution Width 14.8% (11.5-14.5) Platelet Count 67469^3/UL (140-415) Mean Platelet Volume 9.8fl (7.4-10.4) Neutrophils % 57.4% (39.0-77.0) Lymphocytes % 28.2% (15.0-51.0) Monocytes % 9.8% (0.0-11.0) Eosinophils % 3.1% (0.0-7.0) Basophils % 0.3% (0.0-2.0) Nucleated Red Blood Cells % 0.4/100WBC (0.0-0.0) Neutrophils # 5.410^3/ul (1.6-7.5) Lymphocytes # 2.710^3/ul (0.8-2.9) Monocytes # 0.910^3/ul (0.3-0.9) Eosinophils # 0.310^3/ul (0.0-0.5) Basophils # 0.010^3/ul (0.0-0.1) Nucleated Red Blood Cells # 0.010^3/ul (0.0-0.0) Sodium Level 139mmol/L (135-144) Potassium Level 4.3mmol/L (3.5-5.1) Chloride Level 102mmol/L (97-110) Carbon Dioxide Level 31mmol/L (21-31) Anion Gap 10 (8-16) Blood Urea Nitrogen 7mg/dl (7-20) Creatinine 0.67mg/dl (0.44-1.00) Glucose Level 120mg/dl (70-220) Calcium Level 8.7mg/dl (8.4-10.2) Magnesium Level 2.2mg/dl (1.7-2.5) Bedside Glucose 156mg/dL (70-220) CATHY SANTANA Apr 12, 2017 10:40
--- NOTE | 2017-04-12 10:43 | PDOCDIS ---
Discharge Instructions DIAGNOSIS Discharge Diagnosis 71 yo F with pmhx CAD admitted for NSTEMI, found to have multi vessel disease on [facility] 6.. Now sp CABG 04.06 1. Non-ST elevation myocardial infarction. Status post left heart catheterization on 04/03/2017 that showed multivessel coronary artery disease. Status post CABG 04/06/2017. 2. Acute blood loss anemia 2/2 Iron deficiency s/p transfusion 3. Dyslipidemia: on Statin 4. Type 2 diabetes mellitus. Hemoglobin A1c 7.7. 5. Hypothyroidism. Continue Synthroid. 6. Essential hypertension. Continue antihypertensives. . CONDITION Patient Condition: Stable HOME CARE INSTRUCTIONS: Special Diet: CONTROL CARB, CARDIAC/DIABETIC DIET ACTIVITY: Activity Restrictions: Slowly Increase Activity Rest between Activity REFERRALS Referring Provider: PREMA TAYLOR MD Other Referrals Name, Degree Prema Taylor MD Specialty :Cardiothoracic Surgery Office Address : [address] [place] [address] Office Office . CATHY SANTANA Apr 12, 2017 10:43
--- NOTE | 2017-04-12 10:58 | CONS ---
Date/Time of Note Date/Time of Note DATE: 04/12/17 TIME: 10:54 Assessment/Plan Assessment/Plan Additional Assessment/Plan 1. Acute myocardial infarction, non-ST elevation myocardial infarction downtrending cardiac enzymes currently.. Now POD#2 s/p LHC revealing 100% LCX with LL collateral and high grade LAD ostial/RCA mid/PDA stenosis/LVEF 40/no sig now POD#4 s/p cabg(brownlee-lad, svg-pda/om/diag) - doing well now, dispo in place. 2. Abnormal electrocardiogram with left bundle branch block pattern in the setting of acute myocardial infarction - post CABG now. 3. Chest pain secondary to #1- resolving, ambulating well. 4. Hypotension-well controlled, con't med rx. 5. Dyslipidemia. 6. Hypothyroidism. 7. Diabetes mellitus- on meds, keep euglycemic 8. Cardiomyopathy-decreased LVEF-mild to moderately 9. Anemia-improving Consultation Date/Type/Reason Admit Date/Time Mar 31, 2017 at 17:02 Type of Consultation: Cardiology Referring Provider: CATHY SANTANA 24 HR Interval Summary Free Text/Dictation NO acute events - BP in good range - doing well post op - plan to rehab and d/c home soon. ROS: No fever, no chills, no nausea, no vomiting, no diarrhea/constipation No recent weight changes No chest pain, no PND, no orthopnea No dizziness, blurred vision No thirst, no heat or cold intolerance Exam/Review of Systems Vital Signs Vitals Vital Signs Date Time Temp Pulse Resp B/P Pulse Ox O2 Delivery O2 Flow Rate FiO2 04/12/17 08:35 102 04/12/17 08:20 96 21 04/12/17 08:19 20 04/12/17 07:01 98.3 164/71 04/11/17 22:11 Nasal Cannula 04/11/17 19:30 2.0 Intake and Output 04/11/17 04/11/17 04/12/17 15:00 23:00 07:00 Intake Total 800 ml 700 ml Balance 800 ml 700 ml Exam General: WN/WD/NAD, AO x 3 HEENT: Unicetric/atraumatic/EOMI (follows commands) NECK: JVD elevated, no thyromegaly Lymph: no lymphadenopathy HEART: regular with no S3, II/ systolic murmur at apex - no rub LUNGS: Coarse sounds ABD: soft, NT, ND, +BS : Intact Neuro: non focal SKIN: chronic changes EXT: trace edema Results Result Diagram: 04/12/17 0520 04/12/17 0520 Results 24 hrs Laboratory Tests Test 04/11/17 12:27 04/11/17 17:11 04/11/17 20:26 04/12/17 01:28 Bedside Glucose 152 174 205 173 Test 04/12/17 05:20 04/12/17 08:03 White Blood Count 9.5 Red Blood Count 2.87 L Hemoglobin 8.4 L Hematocrit 26.2 L Mean Corpuscular Volume 91.3 Mean Corpuscular Hemoglobin 29.3 Mean Corpuscular Hemoglobin Concent 32.1 Red Cell Distribution Width 14.8 H Platelet Count 247 # Mean Platelet Volume 9.8 Neutrophils % 57.4 Lymphocytes % 28.2 Monocytes % 9.8 Eosinophils % 3.1 Basophils % 0.3 Nucleated Red Blood Cells % 0.4 H Neutrophils # 5.4 Lymphocytes # 2.7 Monocytes # 0.9 Eosinophils # 0.3 Basophils # 0.0 Nucleated Red Blood Cells # 0.0 Sodium Level 139 Potassium Level 4.3 Chloride Level 102 Carbon Dioxide Level 31 Anion Gap 10 # Blood Urea Nitrogen 7 Creatinine 0.67 Glucose Level 120 Calcium Level 8.7 Magnesium Level 2.2 Bedside Glucose 156 Medications Medications Current Medications Gabapentin (Neurontin) 100 mg BID PO Last administered on 04/12/17 09:38; Admin Dose 100 MG; Start 03/31/17 at 21:00 Fish Oil (Fish Oil) 2,000 mg BID PO Last administered on 04/12/17 09:38; Admin Dose 2,000 MG; Start 03/31/17 at 21:00 Atorvastatin Calcium (Lipitor) 40 mg HS PO Last administered on 04/11/17 20:27 ; Admin Dose 40 MG; Start 03/31/17 at 21:00 Hydromorphone HCl (Dilaudid) 0.2 mg Q15M PRN IV PAIN LEVEL 1-5 Last administered on 04/07/17 23:52; Admin Dose 0.2 MG; Start 04/06/17 at 12:30 Hydromorphone HCl (Dilaudid) 0.4 mg Q15M PRN IV PAIN LEVEL 6-10 Last administered on 04/11/17 10:34; Admin Dose 0.4 MG; Start 04/06/17 at 12:30 Oxycodone/ Acetaminophen (Percocet (5/ 325)) 1 tab Q3H PRN PO PAIN LEVEL 1-5 Last administered on 04/11/17 22:15; Admin Dose 1 TAB; Start 04/06/17 at 12:30 Oxycodone/ Acetaminophen (Percocet (5/ 325)) 2 tab Q3H PRN PO PAIN LEVEL 6-10 Last administered on 04/08/17 20:18; Admin Dose 2 TAB; Start 04/06/17 at 12:30 Ondansetron HCl (Zofran Inj) 4 mg Q6H PRN IV NAUSEA AND/OR VOMITING; Start at 12:30 Aspirin (Aspirin) 325 mg DAILY PO Last administered on 04/12/17 09:38; Admin Dose 325 MG; Start 04/06/17 at 19:00 Acetaminophen (Tylenol Tab) 650 mg Q3H PRN PO ELEVATED TEMPERATURE; Start 04/06 at 12:30 Acetaminophen 650 mg 650 mg Q3H PRN PA ELEVATED TEMPERATURE Last administered on 04/06/17 17:47; Admin Dose 650 MG; Start 04/06/17 at 12:30 Magnesium Sulfate/ Dextrose (Magnesium Sulfate 1 Gm/D5W) 100 ml @ 100 mls/hr PRN PRN IVPB PENDING LAB VALUE; Start 04/06/17 at 12:30 Enoxaparin Sodium (Lovenox) 40 mg DAILY SC Last administered on 04/12/17 09:40 ; Admin Dose 40 MG; Start 04/08/17 at 09:00 Insulin Glargine (Lantus) 14 unit DAILY@20 SC Last administered on 04/11/17 20 :38; Admin Dose 14 UNIT; Start 04/08/17 at 09:00 Docusate Sodium (Colace) 100 mg DAILY PO Last administered on 04/12/17 09:39; Admin Dose 100 MG; Start 04/09/17 at 09:00 Bisacodyl (Dulcolax Supp) 10 mg DAILY PRN PA CONSTIPATION Last administered on 04/11/17 17:51; Admin Dose 10 MG; Start 04/09/17 at 07:30 Benzonatate (Tessalon) 100 mg TID PRN PO Cough Last administered on 04/11/17 22:49; Admin Dose 100 MG; Start 04/09/17 at 17:30 Metoprolol Tartrate (Lopressor) 12.5 mg BID PO Last administered on 04/12/17 09:39; Admin Dose 12.5 MG; Start 04/10/17 at 21:00 Famotidine (Pepcid) 20 mg BID PO Last administered on 04/12/17 09:38; Admin Dose 20 MG; Start 04/11/17 at 09:00 Diagnostic Test (Pha) (Accu-Chek) 1 ea 02 XX Last administered on 04/12/17 01: 31; Admin Dose 1 EA; Start 04/12/17 at 02:00 Miscellaneous Information 1 ea NOTE XX ; Start 04/11/17 at 21:30 Glucose (Glutose) 15 gm Q15M PRN PO DECREASED GLUCOSE; Start 04/11/17 at 21:30 Glucose (Glutose) 22.5 gm Q15M PRN PO DECREASED GLUCOSE; Start 04/11/17 at 21: 30 Dextrose (D50w Syringe) 25 ml Q15M PRN IV DECREASED GLUCOSE; Start 04/11/17 at 21:30 Dextrose (D50w Syringe) 50 ml Q15M PRN IV DECREASED GLUCOSE; Start 04/11/17 at 21:30 Glucagon (Glucagen) 1 mg Q15M PRN IM DECREASED GLUCOSE; Start 04/11/17 at 21:30 Glucose (Glutose) 15 gm Q15M PRN BUCCAL DECREASED GLUCOSE; Start 04/11/17 at 21 :30 AMANDA NIETO MD Apr 12, 2017 10:58
[2017-04-12] MEDS ORDERED: LOSA25TA5 PO (12:19)
[2017-04-12] MEDS ORDERED: ALBU2.5V3 NEB (12:25)
[2017-04-12] MEDS ORDERED: ALBU90AE INHALATION (12:25)
[2017-04-12] MEDS: OXYCODONE/ACETAMINOPHEN (5/325) TAB PO PRN (17:12)
== END 2017-04-12 17:35 | disposition home health service (06) | DRG 233 ==
LOC: E/R 15:39 → MS4 17:02 → ICU 04-06 12:30 → TEL 04-08 21:19
PROVIDERS: ADMIT Internal Medicine; ATTEND Internal Medicine
PROC: 5A09357 Assistance with Respiratory Ventilation, Less than 24 Consecutive Hours, Continuous Positive Airway Pressure (ICD-10-PCS; 2017-03-31)
PROC: 4A023N7 Measurement of Cardiac Sampling and Pressure, Left Heart, Percutaneous Approach (ICD-10-PCS; 2017-04-06)
PROC: 02100Z9 Bypass Coronary Artery, One Artery from Left Internal Mammary, Open Approach (ICD-10-PCS; 2017-04-06)
PROC: 06BQ4ZZ Excision of Left Saphenous Vein, Percutaneous Endoscopic Approach (ICD-10-PCS; 2017-04-06)
PROC: 06BP4ZZ Excision of Right Saphenous Vein, Percutaneous Endoscopic Approach (ICD-10-PCS; 2017-04-06)
PROC: 5A1221Z Performance of Cardiac Output, Continuous (ICD-10-PCS; 2017-04-06)
PROC: B211YZZ Fluoroscopy of Multiple Coronary Arteries using Other Contrast (ICD-10-PCS; 2017-04-06)
PROC: B215YZZ Fluoroscopy of Left Heart using Other Contrast (ICD-10-PCS; 2017-04-06)
PROC: 30233N1 Transfusion of Nonautologous Red Blood Cells into Peripheral Vein, Percutaneous Approach (ICD-10-PCS; 2017-04-06)
PROC: 021309W Bypass Coronary Artery, Four or More Arteries from Aorta with Autologous Venous Tissue, Open Approach (ICD-10-PCS; principal; 2017-04-06 07:30)
DX: I21.4 Non-ST elevation (NSTEMI) myocardial infarction (principal); J96.01 Acute respiratory failure with hypoxia; D62 Acute posthemorrhagic anemia; I25.10 Atherosclerotic heart disease of native coronary artery without angina pectoris; E78.5 Hyperlipidemia, unspecified; E11.9 Type 2 diabetes mellitus without complications; E03.9 Hypothyroidism, unspecified; I10 Essential (primary) hypertension; I25.5 Ischemic cardiomyopathy; Z88.5 Allergy status to narcotic agent
CPT/HCPCS: 36415; 36430; 36592; 36600; 71010; 80048; 80053; 80061; 82550; 82553; 82803; 82962; 83036; 83735; 83880; 84100; 84439; 84443; 84484; 85014; 85018; 85025; 85610; 85730; 86850; 86900; 86901; 86920; 87081; 93005; 93306; 93312; 93325; 93458; 93880; 94002; 94640; 94660; 94664; 94770; 96374; 97116; 97163; 97530; J1940; C1769; C1887; C9250; J0171; J0360; J0690; J1170; J1265; J1644; J1650; J1815; J2001; J2150; J2250; J2260; J2370; J2440; J2720; J2916; J3010; J3370; J3475; J3480; J7030; J7040; J7060; J7070; P9016; P9045; P9047; Q9967

== ENCOUNTER → 2017-04-16 | Outpatient (CLI) | payer MEDICARE, OTHER ==
[~2017-04-16] MED LIST changes: +ACET-141 PO; +ALBU2.5V3 NEB; +ALBU90AE INHALATION; +ASPI325T4 PO; -ASPI81TA3 PO; +CALC-277 PO; +COLC0.6T6 PO; +CRES10 PO; +CYCL1DRO BOTH EYES; +DOCU-216 PO; +FLUT16SP17 NASAL; +GABA100C14 PO; +LEVO25TA50 PO; +LOSA25TA5 PO; -LOSARTAN PO; -LOVAZA PO; +MECL-77 PO; -METF500T4 PO; +METF850T PO; +METO-448 PO; -METO-53; +OMEG1CAP2 PO; -OYSTER SHELL CAL PO; -SIMV40TA2; +SITA100T8 PO
--- NOTE | 2017-04-16 15:09 | RADRPT ---
PROCEDURE: XR Chest. CLINICAL INDICATION: Postop heart surgery. TECHNIQUE: Single frontal view of the chest was obtained. COMPARISON: 04/06/2017. FINDINGS: Cardiac silhouette remains mildly enlarged and there is calcification unfolding of the thoracic aort a. [place] catheter, endotracheal tube and left thoracostomy tubes have been removed. Pulmonary vasculature appears normal. There is some atelectasis or minimal airspace infiltrate in the lingula of the left upper lobe. There is no evidence of a pneumothorax. Costophrenic angles appear well d efined. Mid sternotomy wires are present IMPRESSION: 1. Minimal infiltrate and/or atelectasis in the lingula of the left upper lobe. 2. Mild cardiomegaly and aortic atherosclerosis. RPTAT: [facility] Physician Raina Date Time Electronically viewed and signed by Gilbert Renteria Physician on 04/16/2017 15:09 /
--- NOTE | 2017-04-17 10:30 | RADRPT ---
Vent Rate: 87 bpm RR Interval: 0 msec [place] Interval: 160 msec QRS Duration: 138 msec QT Interval: 408 msec QTC Interval: 490 msec P-R-T [place]: 74 - 16 - 0 degrees Normal sinus rhythm Left bundle branch block Abnormal ECG Electronically Signed By: Tony Wong [id number]
== END | disposition home or self-care (01) ==
LOC: RAD 09:58
PROVIDERS: ATTEND Thoracic Surgery (Cardiothoracic Vascular Surgery)
DX: I25.10 Atherosclerotic heart disease of native coronary artery without angina pectoris (principal); I44.7 Left bundle-branch block, unspecified; Z95.1 Presence of aortocoronary bypass graft
CPT/HCPCS: 71020; 93005

== ENCOUNTER 2017-06-24 23:10 | Inpatient (IN) | payer MEDICARE, OTHER ==
[~2017-06-24] VITALS: Ht 160 cm; Wt 66.5 kg
[2017-06-25] VITALS (11 sets, daily range): BP systolic 90–126; BP diastolic 48–66; PULSE 80–90; RESP 18–19; TEMP 96.8; Ht 160 cm; Wt 66.5 kg
[2017-06-25] MEDS ORDERED: SOD CHLORIDE 0.9% 500 ML IV STA (00:13)
[2017-06-25] MEDS ORDERED: ONDANSETRON 4 MG INJ IV STA (00:13)
[2017-06-25] MEDS ORDERED: FUROSEMIDE 40 MG INJ IV ONE (01:00)
[2017-06-25] MEDS ORDERED: NITROGLYCERIN 2% 1 GM OINT PKT TD ONE (01:00)
--- NOTE | 2017-06-25 01:08 | RADRPT ---
PROCEDURE: XR Chest. CLINICAL INDICATION: Chest pain. TECHNIQUE: Single frontal chest x-ray. COMPARISON: 04/16/2017 FINDINGS: The patient status post sternotomy.. Heart is enlarged.. There is increased moderate congestive hea rt failure.. Small amount of fluid in the right minor fissure.. There is no pneumothorax. The oss eous structures are unremarkable. IMPRESSION: Cardiomegaly. Increased CHF. Small amount of pleural fluid in the right minor fissure. Otherwise no change. RPTAT: HMVK .Erich Vargas MD, MD Date Time Electronically viewed and signed by .Erich Vargas MD, MD on 06/25/2017 01:08 .K/
[2017-06-25 01:23] LABS: BASOPHILS % 0.4 % (0.0-2.0); EOSINOPHILS # 0.1 10^3/ul (0.0-0.5); EOSINOPHILS % 1.5 % (0.0-7.0); HEMATOCRIT 39.1 % (37.0-47.0); HEMOGLOBIN 12.1 g/dl (12.0-16.0); LYMPHOCYTES % 21.7 % (15.0-51.0); MEAN CORPUSCULAR HEMOGLOBIN 26.6 pg (29.0-33.0); MEAN CORPUSCULAR HGB CONC 30.9 g/dl (32.0-37.0); MEAN CORPUSCULAR VOLUME 85.9 fl (82.0-101.0); MEAN PLATELET VOLUME 10.3 fl (7.4-10.4); MONOCYTE # 0.6 10^3/ul (0.3-0.9); MONOCYTES % 6.4 % (0.0-11.0); NEUTROPHILS % 69.6 % (39.0-77.0); PLATELET COUNT 189 10^3/UL (140-415); RED BLOOD COUNT 4.55 10^6/ul (4.20-5.40); RED CELL DISTRIBUTION WIDTH 14.2 % (11.5-14.5); WHITE BLOOD COUNT 9.2 10^3/ul (4.8-10.8)
[2017-06-25 01:46] LABS: ALBUMIN 4.2 g/dl (3.3-4.9); BILIRUBIN,INDIRECT 0.3 mg/dl (0-1.1); BILIRUBIN,TOTAL 0.3 mg/dl (0.2-1.3); CALCIUM 9.5 mg/dl (8.4-10.2); CREATININE 0.6 mg/dl (0.44-1.00); POTASSIUM 4.3 mmol/L (3.5-5.1); TOTAL PROTEIN 8.4 g/dl (6.1-8.1)
[2017-06-25 01:53] LABS: TROPONIN-I 0.023 ng/ml (0.00-0.12)
[2017-06-25] MEDS ORDERED: AMIODARONE 900 MG in DEXTROSE 5% 482 ML IV SCH (02:00)
[2017-06-25] MEDS ORDERED: AMIODARONE 150MG/D5W BOLUS 100 ML IV ONE (02:00)
[2017-06-25 02:54] LABS: AADO2 Arterial 587.9 mmHg (7.0-24.0); Allen Test ACCEPTAB; Arterial Base Excess -8.2 mmol/L (-3.0-3); Arterial COHb 0.2 % (0.0-3.0); Arterial Fraction of Oxyhgb 92.2 % (93.0-99.0); Arterial HCO3 19.6 mmol/L (22.0-26.0); Arterial MetHb 0.3 % (0.0-1.5); Arterial Total Hemglobin 14.8 g/dl (12.0-18.0); Blood Gas IEPAP 20/6; Blood Gas PS 14; MODE BIPAP - S/T
[2017-06-25] MEDS ORDERED: IBUP-1542 PO (04:57)
--- NOTE | 2017-06-25 06:52 | HP ---
Date/Time of Note Date/Time of Note DATE: 06/25/17 TIME: 06:40 Assessment/Plan VTE Prophylaxis VTE Prophylaxis Intervention: LMWH Lines/Catheters IV Catheter Type (from [facility]): Saline Lock Urinary Cath still in place: No Assessment/Plan Chief Complaint/Hosp Course This is a 72-year-old male being admitted to the telemetry floor for: #1 flash pulmonary edema: Likely secondary to hypertensive urgency versus CHF exacerbation. Patient is BNP at this time was in the 2000s. And does not appear to have any lower extremity edema. At the current time she is does not appear to be in any respiratory distress. She does have bilateral crackles diffusely in her lungs. She received an initial dose of Lasix in ED. Will continue Lasix twice daily. Will get a 2D echocardiogram. Strict I's and O's. 800 cc fluid restriction. Consult cardiology. #2 hypertensive urgency: Continue patient home blood pressure medications. #3 sinus tachycardia: Patient was initially started on amiodarone drip. At the current time patient is a normal sinus rhythm at approximately 80 bpm. Drip will be held at this time. #4 diabetes mellitus: Check a hemoglobin A1c, insulin sliding scale #5 Hypertension: Continue patient's home blood pressure medication #6 hypothyroidism: Check TSH continue patient's home levothyroxine #7 DVT and GI prophylaxis: Lovenox, acid delia Further treatment strategy will be implemented as per the clinical course Problems: HPI/ROS Admit Date/Time Admit Date/Time Jun 25, 2017 at 04:18 Hx of Present Illness Chief complaint: Shortness of breath, lung crackles This is a 82 year female who presents to the ED with shortness of breath and crackles in her lungs. Patient states that her blood pressure at home was in the 180 systolic and she noticed her blood sugar in the 200s as well. She also felt nauseated. She denied any chest pain. She denies any swelling in her feet. Denies any headaches. Denies any fevers. She arrived at the ER patient was noted to be visibly short of breath and her heart rate was in the 140 patient will start amiodarone drip and put on a BiPAP. Upon my examination patient was sitting in bed in no acute distress. She was now on a nonrebreather and taken off the BiPAP. She was noted to be sinus tach at approximately 80 bpm. The amiodarone drip was stopped. Allergies: Codeine, guaifenesin Medications: See MAR ROS Const: Per HPI Eyes : No pain discharge or redness or change in visual acuity ENT: No pain, sore throat, congestion, congestion, dysphagia or discharge Respiratory: Per HPI Cardiovascular: HPI GI : no change in appetite, abdominal pain, nausea, vomiting, diarrhea, constipation, or change in the color his stool Genitourinary: No dysuria, hematuria, flank pain , discharge or CVA tenderness Musculoskeletal: No joint pain, back pain, neck pain, restricted range of motion in neck or joints Skin: No rash, bruising or hives Neuro: No headache, dizziness, syncope, seizure, focal weakness Endocrine: No polyuria, polydipsia, temperature intolerance Psych: No hallucination, depression, anxiety or suicidal ideation PMH/Family/Social Past Medical History Diabetes mellitus, hypertension, coronary artery disease, arthritis, hypothyroidism, gout Past Surgical History Cardiac bypass Family History Significant Family History: no pertinent family hx Social History Alcohol Use: none Smoking Status: Never smoker Drug Use: none Exam/Review of Systems Vital Signs Vitals Vital Signs Date Time Temp Pulse Resp B/P Pulse Ox O2 Delivery O2 Flow Rate FiO2 06/25/17 06:00 Non Rebreather 15.0 06/25/17 05:45 97.5 80 18 126/66 100 06/25/17 04:30 100 Exam Exam General: She is sitting in bed with nonrebreather on and no acute distress The patient is alert oriented -3 lying comfortably in bed. HEENT: Atraumatic, normocephalic. The pupils are equal, round and reactive. Extraocular motor are intact Neck: Supple with full range of motion. No rigidity or meningismus Chest: Nontender Lungs: Diffuse crackles in the bilateral lungs Heart: Normal S1-S2, Regular rhythm and rate. No overt murmur appreciated Abdomen: Soft , nontender, nondistended , bowel sounds are present. No guarding no rebound tenderness , No masses or organomegaly. No costovertebral temporal angle mass Extremities: Normal to inspection, no edema no cyanosis Neurologic: Normal mental status, speech normal, cranial nerves II through XII are intact, motor and sensory are intact, no focal weakness Additional Comments PROCEDURE: XR Chest. CLINICAL INDICATION: Chest pain. TECHNIQUE: Single frontal chest x-ray. COMPARISON: 04/16/2017 FINDINGS: The patient status post sternotomy.. Heart is enlarged.. There is increased moderate congestive heart failure.. Small amount of fluid in the right minor fissure.. There is no pneumothorax. The osseous structures are unremarkable. IMPRESSION: Cardiomegaly. Increased CHF. Small amount of pleural fluid in the right minor fissure. Otherwise no change. RPTAT: HMVK .Erich Vargas MD, MD Date Time Electronically viewed and signed by .Erich Vargas MD, on 06/25/2017 01:08 .K/ CC: ESPERANZA STANTON Telemetry monitoring:: Patient is sinus tach at approximately 80 bpm Please see EKG in the chart for further details Labs Result Diagram: 06/25/17 0048 06/25/17 0048 Medications Medications Current Medications Amiodarone HCl/ Dextrose (Cordarone Iv/ D5W) 500 ml @ 0 mls/hr Q0M IV ; Start at 02:00; Stop 06/26/17 at 01:59 Acetaminophen (Tylenol Tab) 1,000 mg Q6H PRN PO PAIN AND OR ELEVATED TEMP; Start 06/25/17 at 07:00 Aspirin (Aspirin) 325 mg DAILY PO ; Start 06/25/17 at 09:00 Cyclosporine (Restasis) 1 drop Q12 BOTH EYES ; Start 06/25/17 at 09:00 Gabapentin (Neurontin) 100 mg BID PO ; Start 06/25/17 at 09:00 Losartan Potassium (Cozaar) 12.5 mg DAILY PO ; Start 06/25/17 at 09:00 Meclizine HCl (Antivert) 25 mg Q8H PRN PO DIZZINESS; Start 06/25/17 at 07:00 Metoprolol Tartrate (Lopressor) 12.5 mg BID PO ; Start 06/25/17 at 09:00 Atorvastatin Calcium (Lipitor) 40 mg QHS PO ; Start 06/25/17 at 21:00 ALFREDO CANALES Jun 25, 2017 06:52
[2017-06-25] MEDS ORDERED: BISACODYL (EC) 5 MG TAB PO PRN (07:00)
[2017-06-25] MEDS ORDERED: ONDANSETRON 4 MG INJ IV PRN (07:00)
[2017-06-25] MEDS ORDERED: DOCUSATE SODIUM 100 MG CAP PO PRN (07:00)
[2017-06-25] MEDS ORDERED: ACETAMINOPHEN 500 MG TAB PO PRN (07:00)
[2017-06-25] MEDS ORDERED: MECLIZINE 25 MG TAB PO PRN (07:00)
[2017-06-25] MEDS ORDERED: NACL 0.9% 3 ML SYG IV SCH (07:00)
[2017-06-25 08:06] LABS: CHOL/HDL RATIO 3.5 RATIO
[2017-06-25 08:16] LABS: CK-MB 2.05 ng/ml (0.0-2.4)
[2017-06-25 08:32] LABS: TROPONIN-I 0.18 ng/ml (0.00-0.12)
[2017-06-25] MEDS: LEVOTHYROXINE 25 MCG TAB PO SCH (09:34)
[2017-06-25] MEDS: CYCLOSPORINE 0.05% OPH DROPERETTE BOTH EYES SCH ×2 (09:34→23:17)
[2017-06-25] MEDS: ASPIRIN 325 MG TAB PO SCH (09:34)
[2017-06-25] MEDS: METOPROLOL 25 MG TAB PO SCH ×2 (09:35→20:33)
[2017-06-25] MEDS: GABAPENTIN 100 MG CAP PO SCH ×2 (09:35→20:33)
[2017-06-25] MEDS: FAMOTIDINE 20 MG TAB PO SCH ×2 (09:35→20:33)
[2017-06-25] MEDS: LOSARTAN 25 MG TAB PO SCH (09:37)
[2017-06-25] MEDS: FUROSEMIDE 40 MG INJ IV SCH ×2 (09:37→20:34)
[2017-06-25] MEDS: ENOXAPARIN 40 MG/0.4 ML SYG SC SCH (09:50)
--- NOTE | 2017-06-25 13:19 | RADRPT ---
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 Physician: ALFREDO CANALES Quality: Adequate Procedures: Transthoracic echocardiogram with complete 2D, M-Mode, and doppler examination. Indications: Pulm edema, CHF. 2D/M Mode Doppler Measurement Value Normal Ranges Measurement Value Normal Ranges LVIDd 2D 4.1 3.5 - 5.6 cm AV Peak Sony 1.3 m/sec LVIDs 2D 3.1 2.1 - 4.1 cm AV Peak PG 6.7 mmHg LVPWd 2D 1.3 0.6 - 1.1 cm AI Peak PG 27.6 mmHg IVSd 2D 1.3 0.6 - 1.1 cm AI Peak Sony 2.6 m/sec AoR Diam 2D 2.6 2.0 - 3.7 cm AI PHT 1102.0 msec EDV 2D 75.7 cm3 LVOT Peak Sony 1.1 m/sec ESV 2D 29.2 cm3 LVOT Peak PG 4.9 mmHg LA Dimen 2D 3.7 2.3 - 4.0 cm MV E Peak Sony 0.7 m/sec MV A Peak Sony 0.9 m/sec MV E/A 0.8 MV Decel Time 159 msec MV Decel [place] 4 MV E/A 0.8 TR Peak Sony 3.0 m/sec TR Peak PG 35.4 mmHg RVSP 48.0 mmHg Findings Left Ventricle: Normal left ventricular cavity size. Mild concentric left ventricular hypertrophy. Mild global left ventricular systolic dysfunction. Ejection fraction is visually estimated at 40 %. Tissue Doppler/Mitral Doppler indices are consistent with impaired relaxation (Stage I diastolic dysfunction). Right Ventricle: Normal right ventricular size. Normal right ventricular systolic function. Left Atrium: The left atrium is normal in size. Right Atrium: The right atrium is normal in size. Mitral Valve: Mild mitral leaflet calcification. Mild mitral annular calcification. Trace mitral regurgitation. Aortic Valve: Aortic sclerosis without stenosis. Mild to moderate aortic valve regurgitation. Tricuspid Valve: Normal appearance of the tricuspid valve. Estimated peak PA systolic pressure 48 mmHg. There is mild tricuspid regurgitation. Pulmonic Valve: Pulmonic valve not well visualized. There is trace pulmonic regurgitation. Pericardium: Normal pericardium with no significant pericardial effusion. Aorta: Normal aortic root. IVC: Normal size and normal respiratory collapse consistent with normal right atrial pressure. Conclusions 1.Normal left ventricular cavity size. Mild concentric left ventricular hypertrophy. Mild global left ventricular systolic dysfunction. Ejection fraction is visually estimated at 40 %. Tissue Doppler/Mitral Doppler indices are consistent with impaired relaxation (Stage I diastolic dysfunction). 2.Mild mitral leaflet calcification. Mild mitral annular calcification. Trace mitral regurgitation. 3.Normal appearance of the tricuspid valve. Estimated peak PA systolic pressure 48 mmHg. There is mild tricuspid regurgitation. 4.Pulmonic valve not well visualized. There is trace pulmonic regurgitation. Electronically Signed By: Brad Ledezma 25-Jun-2017 13:18:52 -0700 Patient Name: ARTHUR WHITMAN Study Date: 25-Jun-2017 [id number]
[2017-06-25] MEDS ORDERED: GLUCOSE GEL 15 GRAM TUBE BUCCAL PRN (14:30)
[2017-06-25] MEDS ORDERED: GLUCOSE GEL 15 GRAM TUBE PO PRN ×2 (14:30)
[2017-06-25] MEDS ORDERED: GLUCAGON 1 MG INJ IM PRN (14:30)
[2017-06-25] MEDS ORDERED: DEXTROSE 50% 50 ML SYRINGE IV PRN ×2 (14:30)
[2017-06-25] MEDS ORDERED: LEVALBUTEROL (NEB) 0.63 MG/3 ML AMP HHN PRN (15:00)
[2017-06-25] MEDS ORDERED: MAGNESIUM CHLORIDE (SR) 64 MG TAB PO ONE (15:00)
[2017-06-25 15:25] LABS: CK-MB 1.82 ng/ml (0.0-2.4)
[2017-06-25 15:28] LABS: TROPONIN-I 0.155 ng/ml (0.00-0.12)
[2017-06-25] MEDS: INSULIN ASPART [NOVOLOG] 3 ML PEN SC SCH ×2 (17:36→20:52)
[2017-06-25] MEDS: ATORVASTATIN 40 MG TAB PO SCH (23:19)
[2017-06-26] VITALS (11 sets, daily range): BP systolic 106–155; BP diastolic 59–79; PULSE 80–87; RESP 17–20
[2017-06-26] MEDS: ACCU-CHEK XX SCH (02:00)
[2017-06-26] MEDS ORDERED: ACCU-CHEK XX SCH (02:00)
[2017-06-26] MEDS: LEVOTHYROXINE 25 MCG TAB PO SCH (06:21)
[2017-06-26] MEDS: ACETAMINOPHEN 325 MG TAB PO PRN (06:41)
[2017-06-26 08:42] LABS: BASOPHILS % 0.2 % (0.0-2.0); EOSINOPHILS # 0.1 10^3/ul (0.0-0.5); HEMATOCRIT 36.6 % (37.0-47.0); HEMOGLOBIN 11.2 g/dl (12.0-16.0); LYMPHOCYTES # 2.3 10^3/ul (0.8-2.9); LYMPHOCYTES % 27.1 % (15.0-51.0); MEAN CORPUSCULAR HEMOGLOBIN 26.5 pg (29.0-33.0); MEAN CORPUSCULAR HGB CONC 30.6 g/dl (32.0-37.0); MEAN CORPUSCULAR VOLUME 86.7 fl (82.0-101.0); MEAN PLATELET VOLUME 10.3 fl (7.4-10.4); MONOCYTE # 0.8 10^3/ul (0.3-0.9); MONOCYTES % 10.1 % (0.0-11.0); NEUTROPHILS % 61.4 % (39.0-77.0); PLATELET COUNT 194 10^3/UL (140-415); RED BLOOD COUNT 4.22 10^6/ul (4.20-5.40); RED CELL DISTRIBUTION WIDTH 14.5 % (11.5-14.5); WHITE BLOOD COUNT 8.3 10^3/ul (4.8-10.8)
[2017-06-26] MEDS: FAMOTIDINE 20 MG TAB PO SCH ×2 (09:08→20:57)
[2017-06-26] MEDS: CYCLOSPORINE 0.05% OPH DROPERETTE BOTH EYES SCH ×2 (09:08→21:16)
[2017-06-26] MEDS: GABAPENTIN 100 MG CAP PO SCH ×2 (09:14→20:57)
[2017-06-26 09:20] LABS: MAGNESIUM 1.9 mg/dl (1.7-2.5); PHOSPHORUS 3.3 mg/dl (2.5-4.9)
[2017-06-26 09:24] LABS: ALBUMIN 3.9 g/dl (3.3-4.9); ALBUMIN/GLOBULIN RATIO 1.02; BILIRUBIN,INDIRECT 0.6 mg/dl (0-1.1); BILIRUBIN,TOTAL 0.6 mg/dl (0.2-1.3); CALCIUM 8.8 mg/dl (8.4-10.2); CREATININE 0.67 mg/dl (0.44-1.00); POTASSIUM 4.1 mmol/L (3.5-5.1); TOTAL PROTEIN 7.7 g/dl (6.1-8.1)
[2017-06-26] MEDS: ENOXAPARIN 40 MG/0.4 ML SYG SC SCH (09:28)
[2017-06-26] MEDS: INSULIN ASPART [NOVOLOG] 3 ML PEN SC SCH ×4 (09:28→21:10)
[2017-06-26] MEDS: FUROSEMIDE 40 MG INJ IV SCH ×2 (09:29→20:59)
[2017-06-26] MEDS: METOPROLOL 25 MG TAB PO SCH ×2 (09:29→21:16)
[2017-06-26] MEDS: LOSARTAN 25 MG TAB PO SCH (09:29)
[2017-06-26] MEDS: ASPIRIN 325 MG TAB PO SCH (09:34)
--- NOTE | 2017-06-26 15:29 | PN ---
Date/Time of Note Date/Time of Note DATE: 06/26/17 TIME: 15:28 Assessment/Plan VTE Prophylaxis VTE Prophylaxis Intervention: LMWH Lines/Catheters IV Catheter Type (from [facility]): Saline Lock Urinary Cath still in place: No Assessment/Plan Chief Complaint/Hosp Course 1. Acute on chronic congestive heart failure exacerbation. Systolic dysfunction. Continue appropriate diuresis. 2. Acute hypoxic respiratory failure secondary to pulmonary edema. Improved with diuresis. 3. Elevated troponins. The patient has history of CAD and she is status post CABG on 04-06-17. Cardiology to evaluate the patient. Continue aspirin. 4. Accelerated hypertension. Continue antihypertensives. 5. Type 2 diabetes mellitus. Continue sliding scale insulin. Hemoglobin A1c 6.6. 6. Dyslipidemia. Continue statins. 7. Ischemic cardiomyopathy. Ejection fraction of 40%. Continue beta blockers and ARB's. 8. Hypothyroidism. Continue Synthroid. 9. Fluids, electrolytes, and nutrition. Carbohydrate controlled diet. 10. DVT prophylaxis with subcutaneous Lovenox. 11. Plan. Continue current management. Await cardiology evaluation. Case discussed with Dr. Fragoso. Problems: Subjective 24 Hr Interval Summary Free Text/Dictation Breathing better. Denies any chest pain. Exam/Review of Systems Vital Signs Vitals Vital Signs Date Time Temp Pulse Resp B/P Pulse Ox O2 Delivery O2 Flow Rate FiO2 06/26/17 12:33 82 06/26/17 11:33 98.2 19 106/59 97 06/26/17 08:00 Nasal Cannula 3.0 06/25/17 04:30 100 Intake and Output 06/25/17 06/25/17 06/26/17 14:59 22:59 06:59 Intake Total 600 ml 400 ml Output Total 2500 ml 2300 ml Balance -1900 ml -1900 ml Exam GENERAL: This is a 71-year-old female patient lying in bed, no apparent distress. HEENT: Head normocephalic and atraumatic. Eyes: Anicteric sclerae. Conjunctivae clear. ENT: Nasal septum is midline. Oral mucosa is dry. . NECK: Supple. No JVD noticed. RESPIRATORY: Bilaterally diminished breath sounds. A few rales heard, especially on the right. CARDIAC: Regular rate and rhythm. S1 and S2 heard. Sternotomy scar. ABDOMEN: Soft, nontender and nondistended. Bowel sounds positive in all 4 quadrants. GENITOURINARY: Guzman catheter in place. EXTREMITIES: No cyanosis, no clubbing, no edema. Peripheral pulses palpable. NEUROLOGIC: The patient is awake, alert, and oriented. Results Result Diagram: 06/26/17 0735 06/26/17 0735 Results 24 hrs Laboratory Tests Test 06/25/17 17:34 06/25/17 20:44 06/26/17 02:25 06/26/17 07:35 Bedside Glucose 191 196 129 White Blood Count 8.3 Red Blood Count 4.22 Hemoglobin 11.2 L Hematocrit 36.6 L Mean Corpuscular Volume 86.7 Mean Corpuscular Hemoglobin 26.5 L Mean Corpuscular Hemoglobin Concent 30.6 L Red Cell Distribution Width 14.5 Platelet Count 194 Mean Platelet Volume 10.3 Neutrophils % 61.4 Lymphocytes % 27.1 Monocytes % 10.1 Eosinophils % 1.0 Basophils % 0.2 Nucleated Red Blood Cells % 0.0 Neutrophils # (Manual) 5.1 Lymphocytes # 2.3 Monocytes # 0.8 Eosinophils # 0.1 Basophils # 0.0 Nucleated Red Blood Cells # 0.0 Sodium Level 139 Potassium Level 4.1 Chloride Level 99 Carbon Dioxide Level 33 H Anion Gap 11 Blood Urea Nitrogen 16 Creatinine 0.67 Glucose Level 168 Calcium Level 8.8 Phosphorus Level 3.3 Magnesium Level 1.9 Total Bilirubin 0.6 Direct Bilirubin 0.00 Indirect Bilirubin 0.6 Aspartate Amino Transf (AST/SGOT) 23 Alanine Aminotransferase (ALT/SGPT) 24 Alkaline Phosphatase 61 Total Protein 7.7 Albumin 3.9 Globulin 3.80 H Albumin/Globulin Ratio 1.02 Test 06/26/17 08:33 06/26/17 12:28 Bedside Glucose 144 181 Medications Medications Current Medications Acetaminophen (Tylenol Tab) 1,000 mg Q6H PRN PO PAIN AND OR ELEVATED TEMP; Start 06/25/17 at 07:00 Aspirin (Aspirin) 325 mg DAILY PO Last administered on 06/26/17 09:34; Admin Dose 325 MG; Start 06/25/17 at 09:00 Cyclosporine (Restasis) 1 drop Q12 BOTH EYES Last administered on 06/26/17 09: 08; Admin Dose 1 DROP; Start 06/25/17 at 09:00 Gabapentin (Neurontin) 100 mg BID PO Last administered on 06/26/17 09:14; Admin Dose 100 MG; Start 06/25/17 at 09:00 Losartan Potassium (Cozaar) 12.5 mg DAILY PO Last administered on 06/26/17 09: 29; Admin Dose 12.5 MG; Start 06/25/17 at 09:00 Meclizine HCl (Antivert) 25 mg Q8H PRN PO DIZZINESS; Start 06/25/17 at 07:00 Metoprolol Tartrate (Lopressor) 12.5 mg BID PO Last administered on 06/26/17 09 :29; Admin Dose 12.5 MG; Start 06/25/17 at 09:00 Atorvastatin Calcium (Lipitor) 40 mg QHS PO Last administered on 06/25/17 23:19 ; Admin Dose 40 MG; Start 06/25/17 at 21:00 Ondansetron HCl (Zofran Inj) 4 mg Q6H PRN IV NAUSEA AND/OR VOMITING; Start 06/25 at 07:00 Furosemide (Lasix) 40 mg BID IV Last administered on 06/26/17 09:29; Admin Dose 40 MG; Start 06/25/17 at 09:00; Stop 06/27/17 at 08:59 Acetaminophen (Tylenol Tab) 650 mg Q6H PRN PO PAIN LEVEL 1-3 OR FEVER Last administered on 06/26/17 06:41; Admin Dose 650 MG; Start 06/25/17 at 07:00 Docusate Sodium (Colace) 100 mg Q12H PRN PO CONSTIPATION; Start 06/25/17 at 07: 00 Bisacodyl (Dulcolax) 5 mg DAILY PRN PO CONSTIPATION; Start 06/25/17 at 07:00 Famotidine (Pepcid) 20 mg Q12 PO Last administered on 06/26/17 09:08; Admin Dose 20 MG; Start 06/25/17 at 09:00 Enoxaparin Sodium (Lovenox) 40 mg DAILY SC Last administered on 06/26/17 09:28 ; Admin Dose 40 MG; Start 06/25/17 at 09:00 Diagnostic Test (Pha) (Accu-Chek) 1 ea 02 XX ; Start 06/26/17 at 02:00 Miscellaneous Information 1 ea NOTE XX ; Start 06/25/17 at 14:30 Glucose (Glutose) 15 gm Q15M PRN PO DECREASED GLUCOSE; Start 06/25/17 at 14:30 Glucose (Glutose) 22.5 gm Q15M PRN PO DECREASED GLUCOSE; Start 06/25/17 at 14:30 Dextrose (D50w Syringe) 25 ml Q15M PRN IV DECREASED GLUCOSE; Start 06/25/17 at 14:30 Dextrose (D50w Syringe) 50 ml Q15M PRN IV DECREASED GLUCOSE; Start 06/25/17 at 14:30 Glucagon (Glucagen) 1 mg Q15M PRN IM DECREASED GLUCOSE; Start 06/25/17 at 14:30 Glucose (Glutose) 15 gm Q15M PRN BUCCAL DECREASED GLUCOSE; Start 06/25/17 at 14: 30 SYLVAIN AGUILAR NP Jun 26, 2017 15:29
--- NOTE | 2017-06-26 16:09 | RADRPT ---
PROCEDURE: XR Chest. CLINICAL INDICATION: Dyspnea . TECHNIQUE: Single frontal chest x-ray. COMPARISON: 04/16/2017 FINDINGS: The lungs are clear of acute infiltrates, edema, effusions, or masses. Cardiomegaly with calcific at herosclerosis of the aorta is present.. Sternotomy wires are seen. Pleural scarring with diaphragma tic tenting seen at the left costophrenic angle.. The osseous structures are intact. IMPRESSION: No acute cardiopulmonary disease. Pleural diaphragmatic scarring at the left costophrenic angle. Cardiomegaly status post sternotomy. RPTAT: GG .Kali Panda MD, Date Time Electronically viewed and signed by .Kali Panda MD, on 06/26/2017 16:09 .L/
[2017-06-26] MEDS ORDERED: DIGOXIN 500 MCG INJ IV ONE (18:00)
--- NOTE | 2017-06-26 20:26 | CONS ---
DATE OF ADMISSION: 06/25/2017 DATE OF CONSULTATION: 06/26/2017 REASON FOR CONSULTATION: Congestive heart failure exacerbation. REFERRING PHYSICIAN: Dr. Marin from the hospitalist service. HISTORY OF PRESENT ILLNESS: Ms. Carreon is a 72-year-old female with a history of coronary artery disease, status post myocardial infarction, with a subsequent left heart catheterization in March 2017, revealing multivessel obstructive coronary disease and then subsequent CABG, receiving a BRANHAM to LAD, SVG to PDA, SVG to OM, and SVG to diagonal; diabetes mellitus; dyslipidemia; cardiomyopathy, with decreased left ventricular ejection fraction, who presented with complaints of worsening shortness of breath. Initially upon arrival, temperature 98.2, blood pressure markedly elevated at 196/95, pulse 96, respiratory rate 20, satting 96 percent. Patient's labs: White count 9.2, hemoglobin 12.1, platelet count 189. Sodium 136, potassium 4.3, creatinine 0.6, BUN 16. Troponin initially negative, then mildly positive at 0.180. AST 27, ALT 29. LDL 64, HDL 36. TSH mildly depressed at 0.407. White blood cell count 9.2, hemoglobin 12.1, platelet count of 189. Patient underwent a chest x-ray, revealing cardiomegaly, increased congestive heart failure, a small amount of pleural fluid in the right minor fissure. Patient's electrocardiogram revealed normal sinus rhythm at 93, nonspecific IVCD, inferior and lateral biphasic T abnormalities. Patient subsequently admitted to the floor and since admit to floor, has been initiated on Lasix diuresis, with improvement in symptoms. Additionally, the patient has gotten a 2D echo through myself, revealing a mildly depressed left ejection fraction of 40 percent, and the patient's troponins have been trended since that initial positive trending down and now trending negative. Patient denies chest pain. PAST MEDICAL HISTORY: As above in HPI. MEDICATION: Currently in hospital: 1. Lipitor for 40 mg q.h.s. 2. Insulin sliding scale. 3. Xopenex. 4. Aspirin 325 mg daily. 5. Cyclosporin. 6. Gabapentin 100 mg b.i.d. 7. Cozaar 12.5 mg daily. 8. Metoprolol 12.5 mg p.o. b.i.d. 9. Lasix 40 mg IV b.i.d. 10. Lovenox 40 mg subcu daily. ALLERGIES: TO CODEINE AND ROBITUSSIN PERHAPS. SOCIAL HISTORY: No tobacco, EtOH or illicit drug use. FAMILY HISTORY: Negative for sudden cardiac or early CAD. REVIEW OF SYSTEMS: As above in HPI. CONSTITUTIONAL: No fever or chills. RESPIRATORY: Mild shortness of breath. CARDIOVASCULAR: History of MN, congestive heart failure. GASTROINTESTINAL: No vomiting. GENITOURINARY: No hematuria. MUSCULOSKELETAL: Degenerative joint disease. PSYCHIATRY: Patient denies depression. NEUROLOGIC: No documented CVA. PHYSICAL EXAMINATION: VITAL SIGNS: Temperature 98.7, blood pressure 117/65, pulse 84, respiratory rate 19, satting 98 percent. GENERAL: The patient is alert, awake, complaining of mild shortness of breath, improving. NECK: JVP approximately 9 cm water. LUNGS: Fair air movement throughout, with mildly decreased breath sounds at the bases bilaterally. HEART: Regular rate and rhythm. Normal S1, S2, 1/6 systolic murmur. Nondisplaced PMI. ABDOMEN: Positive bowel sounds. Soft. EXTREMITIES: No pitting edema, 1+ pulses, bilateral posterior pulses. LABORATORY: As above in HPI. Most recently, from today, sodium 139, potassium 4.1, creatinine 0.6, BUN 16. Troponin negative, 0.058. White blood cell count 8.3, hemoglobin 11.2, platelet count of 194. IMAGING STUDIES: As above in HPI, with chest x-ray from today revealing no acute cardiopulmonary disease. Cardiomegaly, status post sternotomy. ECG, most recently from June 25, at that time revealing sinus tach at a rate of 142, with IVCD, secondary repolarization abnormalities. IMPRESSION: 1. Congestive heart failure exacerbation, systolic, acute-on- chronic. 2. Positive troponin, now trending negative in the setting of congestive heart failure exacerbation and recent coronary artery bypass graft. 3. Coronary artery disease, status post coronary artery bypass graft x4, March 2017. 4. Hypertension, well controlled. 5. Dyslipidemia. 6. History of myocardial infarction. 7. Depressed TSH. Test for hyperthyroidism. 8. Dyslipidemia, with low HDL. RECOMMENDATIONS: 1. At this time, would maintain patient on telemetry monitoring to follow rhythm and rate close. 2. Continue the patient's low-dose beta delia and Cozaar as tolerated. 3. Continue the patient's Lasix diuresis. Follow strict I's and Os grade closely and likely change to p.o. soon. 4. Continue the patient's current statin therapy. We will initiate patient on low-dose digoxin to improve contractibility. Thank you for allowing me to take part in the care of this patient. I will continue to follow very closely with you, with recommendations to be made as patient goes through her inpatient hospital course. Dictated By: Brad Ledezma MD /kraig/maty /Document#: [id number] CC: Carlos Marin MD;*End*
[2017-06-26] MEDS: ATORVASTATIN 40 MG TAB PO SCH (20:57)
[2017-06-27] VITALS (10 sets, daily range): BP systolic 125–157; BP diastolic 69–78; PULSE 82–92; RESP 16–18
[2017-06-27] MEDS: ACCU-CHEK XX SCH (02:05)
[2017-06-27 08:34] LABS: BASOPHILS % 0.5 % (0.0-2.0); EOSINOPHILS # 0.1 10^3/ul (0.0-0.5); EOSINOPHILS % 1.5 % (0.0-7.0); HEMATOCRIT 37.1 % (37.0-47.0); HEMOGLOBIN 11.7 g/dl (12.0-16.0); LYMPHOCYTES % 24.5 % (15.0-51.0); MEAN CORPUSCULAR HEMOGLOBIN 27.1 pg (29.0-33.0); MEAN CORPUSCULAR HGB CONC 31.5 g/dl (32.0-37.0); MEAN CORPUSCULAR VOLUME 86.1 fl (82.0-101.0); MEAN PLATELET VOLUME 10.1 fl (7.4-10.4); MONOCYTE # 0.8 10^3/ul (0.3-0.9); NEUTROPHILS % 63.1 % (39.0-77.0); PLATELET COUNT 203 10^3/UL (140-415); RED BLOOD COUNT 4.31 10^6/ul (4.20-5.40); RED CELL DISTRIBUTION WIDTH 14.1 % (11.5-14.5)
[2017-06-27] MEDS: INSULIN ASPART [NOVOLOG] 3 ML PEN SC SCH ×3 (08:49→17:46)
[2017-06-27] MEDS: METOPROLOL 25 MG TAB PO SCH (08:50)
[2017-06-27] MEDS: ENOXAPARIN 40 MG/0.4 ML SYG SC SCH (08:50)
[2017-06-27] MEDS: LOSARTAN 25 MG TAB PO SCH (08:51)
[2017-06-27] MEDS: LEVOTHYROXINE 25 MCG TAB PO SCH (08:51)
[2017-06-27] MEDS: GABAPENTIN 100 MG CAP PO SCH (08:51)
[2017-06-27] MEDS: ASPIRIN 325 MG TAB PO SCH (08:51)
[2017-06-27] MEDS: FAMOTIDINE 20 MG TAB PO SCH (08:51)
[2017-06-27 08:58] LABS: MAGNESIUM 1.9 mg/dl (1.7-2.5); PHOSPHORUS 3.6 mg/dl (2.5-4.9)
[2017-06-27 09:00] LABS: CREATININE 0.6 mg/dl (0.44-1.00); POTASSIUM 3.7 mmol/L (3.5-5.1)
[2017-06-27] MEDS: CYCLOSPORINE 0.05% OPH DROPERETTE BOTH EYES SCH (09:00)
[2017-06-27 09:10] LABS: TROPONIN-I 0.066 ng/ml (0.00-0.12)
[2017-06-27 09:14] LABS: CK-MB 0.66 ng/ml (0.0-2.4); TROPONIN-I 0.058 ng/ml (0.00-0.12)
--- NOTE | 2017-06-27 10:45 | CONS ---
Date/Time of Note Date/Time of Note DATE: 06/27/17 TIME: 10:40 Assessment/Plan Assessment/Plan Chief Complaint/Hosp Course IMPRESSION: 1. Congestive heart failure exacerbation, systolic, acute-on- chronic.-improving volume status 2. Positive troponin, now trended negative in the setting of congestive heart failure exacerbation and recent coronary artery bypass graft.-no CP 3. Coronary artery disease, status post coronary artery bypass graft x4, March 2017. 4. Hypertension, well controlled. 5. Dyslipidemia. 6. History of myocardial infarction. 7. Depressed TSH. Test for hyperthyroidism.-NL FT4 ?sick euthyroid 8. Dyslipidemia, with low HDL. REcc: -Tele -serial ecg's -Resume lasix diuresis -Continue BB and make slight increase to ARB afterload reduction -Continue digoxin -Continue asa Problems: Consultation Date/Type/Reason Admit Date/Time Jun 25, 2017 at 04:18 Initial Consult Date 06/26/17 Type of Consultation: cardiology Reason for Consultation CHF/cardiomyopathy Referring Provider: CHUCHO MOON Exam/Review of Systems Vital Signs Vitals Vital Signs Date Time Temp Pulse Resp B/P Pulse Ox O2 Delivery O2 Flow Rate FiO2 06/27/17 08:17 84 06/27/17 07:47 98.6 18 157/73 93 06/27/17 03:53 4.0 06/26/17 20:00 Nasal Cannula 06/25/17 04:30 100 Intake and Output 06/26/17 06/26/17 06/27/17 15:00 23:00 07:00 Intake Total 600 ml 250 ml Output Total 700 ml 1800 ml Balance -100 ml -1550 ml Exam Review of Systems: CONSTITUTIONAL: No fevers, chills. PULMONARY: mild sob-improving CARDIOVASCULAR: No chest pain/palpitations GASTROINTESTINAL: No nausea/vomiting. GENITOURINARY: No hematuria/dysuria. MUSCULOSKELETAL: No myagias/arthalgias. PSYCHIATRIC: The patient denies depression. NEUROLOGIC: No weakness Constitutional: alert, oriented Psych: no complaints Head: normocephalic ENMT: mucosa pink and moist Neck: jvd (9 cm water), supple Respiratory: diminished breath sounds (at bases/B) Cardiovascular: regular rate and rhythm Gastrointestinal: non-tender, soft Musculoskeletal: muscle weakness (mild generalized) Extremities: edema (trace/B) Neurological: other (Nofocal deficits) Results Result Diagram: 06/27/17 0758 06/27/17 0759 Results 24 hrs Laboratory Tests Test 06/26/17 12:28 06/26/17 15:47 06/26/17 18:40 06/26/17 20:46 Bedside Glucose 181 238 H Troponin I 0.058 Free Thyroxine 0.95 Test 06/27/17 07:58 06/27/17 07:59 06/27/17 08:46 White Blood Count 8.0 Red Blood Count 4.31 Hemoglobin 11.7 L Hematocrit 37.1 Mean Corpuscular Volume 86.1 Mean Corpuscular Hemoglobin 27.1 L Mean Corpuscular Hemoglobin Concent 31.5 L Red Cell Distribution Width 14.1 Platelet Count 203 Mean Platelet Volume 10.1 Neutrophils % 63.1 Lymphocytes % 24.5 Monocytes % 10.0 Eosinophils % 1.5 Basophils % 0.5 Nucleated Red Blood Cells % 0.0 Neutrophils # (Manual) 5.1 Lymphocytes # 2.0 Monocytes # 0.8 Eosinophils # 0.1 Basophils # 0.0 Nucleated Red Blood Cells # 0.0 Sodium Level 142 Potassium Level 3.7 Chloride Level 100 Carbon Dioxide Level 31 Anion Gap 15 Blood Urea Nitrogen 14 Creatinine 0.60 Glucose Level 201 Calcium Level 9.0 Phosphorus Level 3.6 Magnesium Level 1.9 Creatine Kinase 29 Creatine Kinase Index 2.3 Creatinine Kinase MB (Mass) 0.66 Troponin I 0.058 Bedside Glucose 168 Medications Medications Current Medications Acetaminophen (Tylenol Tab) 1,000 mg Q6H PRN PO PAIN AND OR ELEVATED TEMP; Start 06/25/17 at 07:00 Aspirin (Aspirin) 325 mg DAILY PO Last administered on 06/27/17 08:51; Admin Dose 325 MG; Start 06/25/17 at 09:00 Cyclosporine (Restasis) 1 drop Q12 BOTH EYES Last administered on 06/26/17 21: 16; Admin Dose 1 DROP; Start 06/25/17 at 09:00 Gabapentin (Neurontin) 100 mg BID PO Last administered on 06/27/17 08:51; Admin Dose 100 MG; Start 06/25/17 at 09:00 Losartan Potassium (Cozaar) 12.5 mg DAILY PO Last administered on 06/27/17 08: 51; Admin Dose 12.5 MG; Start 06/25/17 at 09:00 Meclizine HCl (Antivert) 25 mg Q8H PRN PO DIZZINESS Last administered on 08:51; Admin Dose 25 MG; Start 06/25/17 at 07:00 Metoprolol Tartrate (Lopressor) 12.5 mg BID PO Last administered on 06/27/17 08 :50; Admin Dose 12.5 MG; Start 06/25/17 at 09:00 Atorvastatin Calcium (Lipitor) 40 mg QHS PO Last administered on 06/26/17 20:57 ; Admin Dose 40 MG; Start 06/25/17 at 21:00 Ondansetron HCl (Zofran Inj) 4 mg Q6H PRN IV NAUSEA AND/OR VOMITING; Start 06/25 at 07:00 Acetaminophen (Tylenol Tab) 650 mg Q6H PRN PO PAIN LEVEL 1-3 OR FEVER Last administered on 06/26/17 06:41; Admin Dose 650 MG; Start 06/25/17 at 07:00 Docusate Sodium (Colace) 100 mg Q12H PRN PO CONSTIPATION; Start 06/25/17 at 07: 00 Bisacodyl (Dulcolax) 5 mg DAILY PRN PO CONSTIPATION; Start 06/25/17 at 07:00 Famotidine (Pepcid) 20 mg Q12 PO Last administered on 06/27/17 08:51; Admin Dose 20 MG; Start 06/25/17 at 09:00 Enoxaparin Sodium (Lovenox) 40 mg DAILY SC Last administered on 06/27/17 08:50 ; Admin Dose 40 MG; Start 06/25/17 at 09:00 Diagnostic Test (Pha) (Accu-Chek) 1 ea 02 XX Last administered on 06/27/17 02: 05; Admin Dose 1 EA; Start 06/26/17 at 02:00 Miscellaneous Information 1 ea NOTE XX ; Start 06/25/17 at 14:30 Glucose (Glutose) 15 gm Q15M PRN PO DECREASED GLUCOSE; Start 06/25/17 at 14:30 Glucose (Glutose) 22.5 gm Q15M PRN PO DECREASED GLUCOSE; Start 06/25/17 at 14:30 Dextrose (D50w Syringe) 25 ml Q15M PRN IV DECREASED GLUCOSE; Start 06/25/17 at 14:30 Dextrose (D50w Syringe) 50 ml Q15M PRN IV DECREASED GLUCOSE; Start 06/25/17 at 14:30 Glucagon (Glucagen) 1 mg Q15M PRN IM DECREASED GLUCOSE; Start 06/25/17 at 14:30 Glucose (Glutose) 15 gm Q15M PRN BUCCAL DECREASED GLUCOSE; Start 06/25/17 at 14: 30 Digoxin (Digoxin) 0.125 mg DAILY@13 PO ; Start 06/27/17 at 13:00 KIRSTIN GERONIMO Jun 27, 2017 10:45
[2017-06-27] MEDS ORDERED: DIGOXIN 0.125 MG TAB PO SCH (13:00)
--- NOTE | 2017-06-27 15:02 | PDOCDIS ---
Discharge Instructions DIAGNOSIS Discharge Diagnosis CHF exacerbation. CONDITION Patient Condition: Stable HOME CARE INSTRUCTIONS: Special Diet: low fat, low cholesterol, carb controlled FOLLOW UP/APPOINTMENTS Follow-up Plan Brad Ledezma MD Specialty Cardiology Office Address [address] [place] [address] Office OTHER ORDERS: Other Orders: 1. Take medications as per prescription. Start taking Lasix, digoxin, and increased dose of Losartan. 2. Follow a low-cholesterol, carbohydrate controlled diet. 3. Follow-up with Dr. Ledezma in 2 weeks. 4. Resume activities as tolerated. 5. Go to the ER or call 911 if you have any chest pain or shortness of breath. SYLVAIN AGUILAR NP Jun 27, 2017 15:02
[2017-06-27] MEDS ORDERED: FURO40TA4 PO (15:12)
[2017-06-27] MEDS ORDERED: LOSA25TA2 PO (15:12)
[2017-06-27] MEDS: ACETAMINOPHEN 325 MG TAB PO PRN (16:05)
[2017-06-27] MEDS ORDERED: DIGO125T PO (16:52)
[2017-06-27] MEDS ORDERED: FUROSEMIDE 40 MG TAB PO SCH (18:00)
--- NOTE | 2017-06-27 19:35 | RADRPT ---
Vent Rate: 82 bpm RR Interval: 0 msec MI Interval: 172 msec QRS Duration: 142 msec QT Interval: 428 msec QTC Interval: 500 msec P-R-T [place]: 66 - 2 - 177 degrees Normal sinus rhythm Possible Left atrial enlargement Left bundle branch block Abnormal ECG Electronically Signed By: Brad Ledezma [id number]
[2017-06-28] MEDS ORDERED: LOSARTAN 25 MG TAB PO SCH (09:00)
--- NOTE | 2017-06-29 11:23 | DS ---
DATE OF ADMISSION: 06/25/2017 DATE OF DISCHARGE: 06/27/2017 FINAL DIAGNOSES: 1. Acute on chronic congestive heart failure exacerbation, systolic dysfunction. 2. Acute hypoxic respiratory failure secondary to pulmonary edema. 3. Elevated troponins, most probably a type 2 event. Resolved. 4. Accelerated hypertension. 5. Type 2 diabetes mellitus. 6. Dyslipidemia. 7. Ischemic cardiomyopathy. 8. Hypothyroidism. 9. Coronary artery disease status post CABG in March 2017. 10. Pulmonary hypertension. CONSULTANTS: Dr. Brad Ledezma, Cardiology. HOSPITAL COURSE: This is a 82-year-old female with significant cardiac history, including history of essential hypertension and CAD status post coronary artery bypass grafting in March 2017, who came to the emergency room with chief complaint of sudden onset of shortness of breath. The patient also verbalized elevated blood pressure readings at home. There was also associated nausea. The patient denied any chest pain. The patient denied any bilateral lower extremity edema. In the emergency room, the patient was noticed to be significantly short of breath. The patient's heart rate was in the 140s. The patient was started on an amiodarone drip, and the patient was put on BiPAP therapy. The patient's ABG that was done in the emergency room on 100 percent FiO2 showed metabolic acidosis with a pH of 7.22. The patient's chest x-ray showed cardiomegaly with increased congestive heart failure exacerbation. Provided the patient's history of present illness, her comorbidities, and the diagnostic findings, a clinical decision was made to admit the patient to an inpatient setting to have her further evaluated. The patient was admitted to inpatient telemetry floor. Cardiology consult was obtained. The patient was diuresed aggressively. The patient was also maintained on inhaled bronchodilators with improvement of her symptoms. The patient underwent a 2D echocardiogram that showed ejection fraction of 40 percent. The patient's symptomatology improved with aggressive diuresis and inhaled bronchodilator therapy. The patient was noticed to have elevated troponins. The patient's troponins later trended down. Hence, it was concluded that the elevated troponin could be most probably secondary to a type 2 event from demand ischemia. The patient has a prior history of CAD, and the patient is status post CABG in March 2017. The patient was maintained on the aspirin. The patient has evidence of ischemic cardiomyopathy. The patient was maintained on beta blockers and ARBs. The patient's ARB dosing was increased because of uncontrolled blood pressure. The patient has underlying type 2 diabetes mellitus. She was maintained on sliding scale insulin. The patient's hemoglobin A1c was found to be 6.6. The patient's blood glucose was well controlled throughout the hospital course. The patient has underlying hypothyroidism. She was maintained on Synthroid for the same. She has underlying dyslipidemia. She was maintained on statins for the same. The patient's symptomatology improved, and the patient is back to her baseline. The patient was cleared by cardiology to be discharged home. The patient denied any complaints at the time of discharge. The patient had a stable hospital course. The patient is back to her baseline, and she was able to walk around the unit without any significant dyspnea. The patient is stable to be discharged home to be followed up with outpatient cardiology. DISCHARGE DISPOSITION/PLAN: The patient will be discharged home today. The patient was instructed to take medications as per prescription. The patient was instructed to start taking Lasix, increased dose of losartan, as well as digoxin. The patient was instructed to follow a low cholesterol, carbohydrate-controlled diet. She was instructed to resume activities as tolerated. She was instructed to go to the emergency room or call 911 if she continues to have any chest pain or any dyspnea. The patient was instructed to follow up with Dr. Ledezma in 2 weeks. The patient verbalized understanding of her discharge instructions. DISCHARGE CONDITION: Stable. DISCHARGE MEDICATIONS: 1. Digoxin 0.125 mg p.o. daily. 2. Lasix 40 mg p.o. b.i.d. 3. Losartan 25 mg p.o. daily. 4. Aspirin 325 mg p.o. daily. 5. Calcium carbonate with vitamin D3, 1 tab p.o. b.i.d. 6. Cyclosporine eyedrops to both eyes q.12 hours. 7. Gabapentin 100 mg p.o. b.i.d. 8. Synthroid 25 mcg p.o. before breakfast. 9. Metformin 850 mg p.o. with breakfast and dinner. 10. Lopressor 12.5 mg p.o. b.i.d. 11. Norvasc 2 grams p.o. b.i.d. 12. Crestor 10 mg p.o. q.h.s. 13. Januvia 100 mg p.o. daily. DIAGNOSTIC DATA: 1. 2-D echocardiogram with an ejection fraction of 40 percent. Stage I diastolic dysfunction. Estimated peak PA systolic pressure of 48 mmHg. 2. Latest CBC: WBC 8.2, hemoglobin 11.7, hematocrit 37.1, platelet count 203. 3. Latest BMP sodium 142, potassium 3.7, chloride 100, carbon dioxide 31, anion gap 15, BUN 14, creatinine 0.60, glucose 201. Calcium 9.2, phosphorus 3.6, magnesium 1.9. 4. Hemoglobin A1c 6.6. 5. Fasting lipid panel: Triglycerides 136, total cholesterol 127, LDL 64. HDL 36. 6. Thyroid panel: TSH 0.407, free T4 0.95. 7. Chest x-ray on admission. Cardiomegaly for increased CHF. Small amount of pleural fluid in the right minor fissure. 8. Repeat chest x-ray on 06/26/2017, no acute cardiopulmonary process for cardiomegaly. Status post sternotomy. At this time, I would like to thank Dr. Ledezma for seeing the patient, doing the necessary procedures, and providing clinical recommendations. The case and management of this patient was fully discussed with Dr. Guzman. Approximately 35 minutes was spent on coordinating the discharge on this patient. Dictated By: Misael Pat NP /[email or web address] /Document#: [id number] [facility]
== END 2017-06-27 19:14 | disposition home or self-care (01) | DRG 291 ==
LOC: E/R 23:10 → MS4 06-25 04:18
PROVIDERS: ADMIT Family Medicine; ATTEND Family Medicine
DX: I11.0 Hypertensive heart disease with heart failure (principal); J96.01 Acute respiratory failure with hypoxia; I50.23 Acute on chronic systolic (congestive) heart failure; I16.0 Hypertensive urgency; I25.5 Ischemic cardiomyopathy; E03.9 Hypothyroidism, unspecified; E78.5 Hyperlipidemia, unspecified; E11.9 Type 2 diabetes mellitus without complications; I25.10 Atherosclerotic heart disease of native coronary artery without angina pectoris; R00.0 Tachycardia, unspecified; I25.2 Old myocardial infarction; Z79.4 Long term (current) use of insulin; Z79.84 Long term (current) use of oral hypoglycemic drugs; Z79.82 Long term (current) use of aspirin; Z95.1 Presence of aortocoronary bypass graft
CPT/HCPCS: 36600; 71010; 80048; 80053; 80061; 82550; 82553; 82803; 82962; 83036; 83690; 83735; 83880; 84100; 84439; 84443; 84484; 85025; 93005; 93306; 94660; J0282; J1650; J1815; J1940; J2405; J7040; J7060

== ENCOUNTER 2018-03-15 17:33 | Inpatient (IN) | END 2018-03-17 13:48 | disposition still patient (30) | DRG 313 ==